=== PATIENT | female | born 1960 | race Two or more races ===

== ENCOUNTER 2019-08-20 11:55 | Emergency (ER) | payer MEDICAID ==
[~2019-08-20] VITALS: Ht 167.6 cm; Wt 81.6 kg
[~2019-08-20 11:55] MED LIST: CEPHALEXIN500 MG ORAL; IBUPROFEN800 MG ORAL; NKM; PHENAZOPYRIDIN200 MG ORAL
[2019-08-20 12:05] VITALS: BP 141/95
--- NOTE | 2019-08-20 12:05 | NUR ---
ED Nurse Note: pt ambulated in to ED, reports of having UTI and took antibiotic and wants to be eval. denies any pain
[2019-08-20 13:14] LABS: APPEARANCE,URINE CLEAR; BILIRUBIN, URINE NEGATIVE (NEGATIVE); GLUCOSE, URINE (UA) NEGATIVE (NEGATIVE); KETONES,URINE NEGATIVE (NEGATIVE); LEUKOCYTE ESTERASE ,URINE 1+ (NEGATIVE); NITRITE,URINE NEGATIVE (NEGATIVE); PH,URINE 6 (4.5-8.0); PROTEIN,URINE NEGATIVE (NEGATIVE); UROBILINOGEN,URINE NORMAL MG/DL (0.0-1.0)
[2019-08-20 13:33] LABS: COLOR,URINE YELLOW
--- NOTE | 2019-08-20 15:55 | Diagnostic Imaging Report ---
EXAM: US Pelvis Transabdominal, Complete CLINICAL HISTORY: PAIN TECHNIQUE: Real-time complete transabdominal pelvic ultrasound with image documentation. COMPARISON: No relevant prior studies available. FINDINGS: Uterus cervix: Normal in size, 5.9 x 5.6 x 3.5 cm. Endometrial complex measures less than 1 mm, a normal value for age. There is a 1.7 cm rounded hypoechoic mass in the cervix, which is not clearly a simple nabothian cyst. Cervical fibroid or other neoplasm would be considered. Right ovary: Normal in size, 2.5 x 1.5 x 2.6 cm. No mass. Normal blood flow. Left ovary: Normal in size, 2.9 x 1 x 1.9 cm. No mass. Normal blood flow. Free fluid: Trace free fluid in the cul-de-sac IMPRESSION: 1.7 cm hypoechoic cervical mass, not clearly a simple nabothian cysts. Consider cervical fibroid or other neoplasm. No abnormal endometrial thickening to explain postmenopausal vaginal bleeding. Unremarkable adnexal contents
--- NOTE | 2019-08-20 16:02 | Emergency Room Report ---
History of Present Illness General Chief Complaint: Female Urogenital Problems Source: Patient Present Illness HPI 58-year-old female with no significant past medical history here complaining of pain and cramping in the left lower quadrant after termination of antibiotics for urinary tract infection. Patient reports that she went to a different hospital 1 week ago was treated for urinary tract infection she finished her cephalexin and continues to have a 10 out of 10 cramping pain in the left lower quadrant. Denies fever and chills, nausea vomiting, flank pain. Denies any hematuria. Patient reports that she went through menopause years ago. Denies vaginal discharge, spotting or bleeding. Denies vaginal trauma. Denies being sexually active. Denies chest pain, shortness of breath, palpitation, abdominal pain, and other associated symptoms. Denies unwanted weight loss, night sweats, headache and dizziness as well as fatigue. Has not taken any medication for symptom relief. Allergies: Coded Allergies: No Known Allergies (Unverified , 02/17/15) Patient History Past Medical History: see triage record Past Surgical History: unable to obtain Pertinent Family History: none Now: No Immunizations: UTD Reviewed Nursing Documentation: PMH: Agreed; PSxH: Agreed Nursing Documentation-PMH Past Medical History: No Stated History Review of Systems All Other Systems: negative except mentioned in HPI Physical Exam Vital Signs Date Time Temp Pulse Resp B/P (MAP) Pulse Ox O2 Delivery O2 Flow Rate FiO2 08/20/19 11:58 97.5 74 19 141/95 (110) 95 Room Air Sp02 EP Interpretation: reviewed, normal General Appearance: no apparent distress, alert, GCS 15, non-toxic Head: normocephalic, atraumatic Eyes: bilateral eye normal inspection, bilateral eye PERRL ENT: hearing grossly normal, normal pharynx, no angioedema, normal voice Neck: full range of motion, supple, supple/symm/no masses Respiratory: chest non-tender, lungs clear, normal breath sounds, no rhonchi, no respiratory distress, no wheezing, speaking full sentences Cardiovascular #1: regular rate, rhythm, no edema, no murmur Gastrointestinal: normal bowel sounds, non tender, soft, no mass, no organomegaly, non-distended, no guarding, no hernia, no rebound Rectal: deferred Genitourinary: normal inspection, no CVA tenderness Musculoskeletal: back normal, gait/station normal, normal range of motion, non- tender, no calf tenderness Neurologic: alert, oriented x3, responsive, motor strength/tone normal, sensory intact, speech normal Psychiatric: judgement/insight normal, memory normal, mood/affect normal, no suicidal/homicidal ideation Skin: no rash Lymphatic: no adenopathy Medical Decision Making PA Attestation All diagnoses and treatment plans were reviewed and discussed with my supervising physician Dr. Isaacs Diagnostic Impression: Primary Impression: Cervical mass Additional Impression: Post-menopausal bleeding ER Course 58-year-old female with no significant past medical history here complaining of pain and cramping in the left lower quadrant after termination of antibiotics for urinary tract infection. Patient reports that she went to a different hospital 1 week ago was treated for urinary tract infection she finished her cephalexin and continues to have a 10 out of 10 cramping pain in the left lower quadrant. Denies fever and chills, nausea vomiting, flank pain. Denies any hematuria. Patient reports that she went through menopause years ago. Denies vaginal discharge, spotting or bleeding. Denies vaginal trauma. Denies being sexually active. Denies chest pain, shortness of breath, palpitation, abdominal pain, and other associated symptoms. Denies unwanted weight loss, night sweats, headache and dizziness as well as fatigue. Has not taken any medication for symptom relief. Ddx considered but are not limited to: UTI, pyelonephritis, urinary incontinence , prolapsed bladder, cervical mass, postmenopausal bleeding, hematuria Vital signs: are WNL, pt. is afebrile H&PE are most consistent with: Post menopausal bleeding, cervical mass ORDERS: UA, pelvic ultrasound, ibuprofen ED INTERVENTIONS: None required at this time. DISCHARGE: At this time pt. is stable for d/c to home. Will provide printed patient care instructions, and any necessary prescriptions. Care plan and follow up instructions have been discussed with the patient prior to discharge. I advised the patient to follow-up with a line service person for further assessment patient has not had a Pap smear in many years advised patient not to have that mass biopsy on the cervix as a bleeding in the urine that has been noted can be secondary to cervical mass since patient is postmenopausal. Patient agrees with the course of treatment. I also advised the patient to return to emergency room if worsening symptoms. Also advised the patient to follow-up with primary care provider if his symptoms of urinary frequency return at this time she has no urinary frequency and dysuria and no infection is noted in her urine. CT/MRI/US Diagnostic Results CT/MRI/US Diagnostic Results : Imaging Test Ordered: Pelvic ultrasound Impression FINDINGS: Uterus/cervix: Normal in size, 5.9 x 5.6 x 3.5 cm. Endometrial complex measures less than 1 mm, a normal value for age. There is a 1.7 cm rounded hypoechoic mass in the cervix, which is not clearly a simple nabothian cyst. Cervical fibroid or other neoplasm would be considered. Right ovary: Normal in size, 2.5 x 1.5 x 2.6 cm. No mass. Normal blood flow. Left ovary: Normal in size, 2.9 x 1 x 1.9 cm. No mass. Normal blood flow. Free fluid: Trace free fluid in the cul-de-sac IMPRESSION: 1.7 cm hypoechoic cervical mass, not clearly a simple nabothian cysts. Consider cervical fibroid or other neoplasm. No abnormal endometrial thickening to explain postmenopausal vaginal bleeding. Unremarkable adnexal contents Last Vital Signs Date Time Temp Pulse Resp B/P (MAP) Pulse Ox O2 Delivery O2 Flow Rate FiO2 08/20/19 12:05 97.5 74 19 141/95 95 Room Air Disposition: HOME, SELF-CARE Condition: Stable Scripts Ibuprofen (Ibu) 800 Mg Tablet 800 MG PO BID, #20 TAB Prov: Juventino Cortez 08/20/19 Referrals: NOT CHOSEN IPA/,REFERRING (PCP) Patient Instructions: Abnormal Uterine Bleeding Additional Instructions: Follow-up with your primary care physician for referral to line service person due to the mass found in your cervix further assessment needed possible biopsy and further imaging take medication as directed Juventino Cortez Aug 20, 2019 16:02
[2019-08-20] MEDS ORDERED: IBU800 MG PO (16:03)
[2019-08-20 16:09] VITALS: BP_SYST 138; BP_SYST 141; BP_DIAS 75; BP_DIAS 95
--- NOTE | 2019-08-20 16:10 | NUR ---
ER DISCHARGE NOTE: Patient is cleared to be discharged per ERMD, pt is aox4, on room air, with stable vital signs. pt was given dc and prescription instructions, pt was able to verbalize understanding, pt id band removed without complications. pt is able to ambulate with steady gait. pt took all belongings.
== END 2019-08-20 16:10 | disposition home or self-care (01) ==
LOC: EMR 12:40
DX: N88.9 Noninflammatory disorder of cervix uteri, unspecified (principal); N95.0 Postmenopausal bleeding
CPT/HCPCS: 76856; 81001; Z7502; 99284

== ENCOUNTER 2020-09-09 09:05 | Emergency (ER) | payer BC, MEDICAID ==
[~2020-09-09] VITALS: Ht 172.7 cm; Wt 81.6 kg
[~2020-09-09 09:05] MED LIST changes: +IBU800 MG PO
[2020-09-09 09:12] VITALS: BP 146/96
--- NOTE | 2020-09-09 09:21 | NUR ---
ED Nurse Note: Pt aaox4. walked in to ED c/o on and off fever x1 week. Pt also c/o headache. Pt took tylenol this morning. no respiratory distress noted at this time. patient denies any pain. no fever noted during the triage. mask provided on the patient
[2020-09-09] MEDS ORDERED: Ketorolac 30mg Inj IV ONE (09:30)
--- NOTE | 2020-09-09 09:30 | NUR ---
ED Nurse Note: IV line established. Blood and urine sent to lab.
--- NOTE | 2020-09-09 09:45 | Emergency Room Report ---
History of Present Illness General Chief Complaint: Fever Source: Patient Present Illness HPI Patient is a 60-year-old female denies any significant past medical history who presents to the ER complaining of fever for the past 8 days. Patient states that she does not know of a recorded temperature but feels like she has fevers intermittently. She also complains of generalized body aches She states that she has intermittent headache but denies any focal weakness or slurred speech. She denies any rash. She denies any recent travel or sick contacts. She denies any cough, chest pain or shortness of breath. She denies any dysuria or hematuria. Allergies: Coded Allergies: No Known Allergies (Unverified , 02/17/15) COVID-19 Screening Contact w/high risk pt: No Experienced COVID-19 symptoms?: Yes COVID-19 Testing performed GIN CLERK: Yes - 09/07/20 COVID-19 Screening: Negative COVID-19 COVID-19 Testing Source: [facility] Patient History Now: No Reviewed Nursing Documentation: PMH: Agreed; PSxH: Agreed Nursing Documentation-PMH Past Medical History: No Stated History Review of Systems All Other Systems: negative except mentioned in HPI Physical Exam Vital Signs Date Time Temp Pulse Resp B/P (MAP) Pulse Ox O2 Delivery O2 Flow Rate FiO2 09/09/20 09:12 100 19 Room Air 09/09/20 09:12 98.6 146/96 (113) 98 Sp02 EP Interpretation: reviewed, normal General Appearance: no apparent distress, alert, GCS 15, non-toxic Head: normocephalic, atraumatic Eyes: bilateral eye normal inspection, bilateral eye PERRL ENT: hearing grossly normal, normal pharynx, no angioedema, normal voice, dry mucus membranes Neck: full range of motion, no meningismus, supple/symm/no masses Respiratory: chest non-tender, lungs clear, normal breath sounds, speaking full sentences Cardiovascular #1: regular rate, rhythm Gastrointestinal: non tender, soft, no guarding, no rebound Rectal: deferred Genitourinary: no CVA tenderness Musculoskeletal: normal range of motion, no calf tenderness Neurologic: registered nurse obstetrics III-XII nml as tested, oriented x3 Psychiatric: no suicidal/homicidal ideation Skin: no rash Lymphatic: no adenopathy Medical Decision Making Diagnostic Impression: Primary Impression: UTI (urinary tract infection) Additional Impression: Transaminitis ER Course Patient afebrile in the emergency room. Her vital signs have been stable. Patient has been pancultured. Patient is COVID-19 PCR is negative. Chest x-ray demonstrates no acute cardiopulmonary pathology. Patient's urine demonstrates evidence for UTI. Patient has been started on Rocephin and is being discharged home on Macrobid. Patient has no signs of meningitis. She denies having any headache currently she denies any neck stiffness and has no meningismus on exam. Patient has mildly elevated LFTs. Ultrasound demonstrates no acute pathology. I have advised the patient to follow-up with her physician for further treatment and evaluation of her transaminitis. After discussing risks and benefits of further diagnostics, treatment plans, as well as indications for and risks of admission, the patient is agreeable to being discharged home. I have explained that their evaluation and treatment in the emergency department today is an important step towards them achieving better health but that their evaluation today is not intended to replace further evaluation and treatment by a physician in their local clinic. I have explained that while the current findings suggest no immediate life threatening emergency they will require further evaluation and treatment by a physician of their choice in their area. They understand that it will be necessary for them to review the final reports of their ED visit with their clinic physician. We have reviewed indications for return to the Emergency Department. I have explained that additional time may need to pass and/or additional testing as an outpatient may be necessary before a definitive diagnosis can be made. They tell me they are willing to follow up as instructed within the timeframe I recommend. They appear to understand what we discussed. Additionally they understand that if they are unable to be seen by an outpatient physician they are welcome, and in fact should, return to the Emergency Department for a repeat evaluation. The patient is stable at time of discharge. Laboratory Tests Test 09/09/20 09:30 White Blood Count 5.1 K/UL (4.8-10.8) Red Blood Count 5.23 M/UL (4.20-5.40) Hemoglobin 16.6 G/DL (12.0-16.0) H Hematocrit 47.7 % (37.0-47.0) H Mean Corpuscular Volume 91 FL (80-99) Mean Corpuscular Hemoglobin 31.7 PG (27.0-31.0) H Mean Corpuscular Hemoglobin Concent 34.7 G/DL (32.0-36.0) Red Cell Distribution Width 11.4 % (11.6-14.8) L Platelet Count 241 K/UL (150-450) Mean Platelet Volume 5.8 FL (6.5-10.1) L Neutrophils (%) (Auto) 45.4 % (45.0-75.0) Lymphocytes (%) (Auto) 44.0 % (20.0-45.0) Monocytes (%) (Auto) 9.4 % (1.0-10.0) Eosinophils (%) (Auto) 0.0 % (0.0-3.0) Basophils (%) (Auto) 1.2 % (0.0-2.0) Prothrombin Time 11.2 SEC (9.30-11.50) Prothrombin Time INR 1.0 (0.9-1.1) Activated Partial Thromboplast Time 22 SEC (23-33) L Urine Color Yellow Urine Appearance Clear Urine pH 5 (4.5-8.0) Urine Specific [place] 1.025 (1.005-1.035) Urine Protein 2+ (NEGATIVE) H Urine Glucose (UA) Negative (NEGATIVE) Urine Ketones 1+ (NEGATIVE) H Urine Blood 5+ (NEGATIVE) H Urine Nitrite Negative (NEGATIVE) Urine Bilirubin 1+ (NEGATIVE) H Urine Ictotest Negative (NEGATIVE) Urine Urobilinogen 1 MG/DL (0.0-1.0) H Urine Leukocyte Esterase 2+ (NEGATIVE) H Urine RBC 5-10 /HPF (0 - 2) H Urine WBC 2-4 /HPF (0 - 2) Urine Squamous Epithelial Cells Few /LPF (NONE/OCC) Urine Bacteria Few /HPF (NONE) Urine Mucus Few /LPF (NONE/OCC) H Sodium Level 135 MMOL/L (136-145) L Potassium Level 3.9 MMOL/L (3.5-5.1) Chloride Level 102 MMOL/L (98-107) Carbon Dioxide Level 26 MMOL/L (21-32) Anion Gap 7 mmol/L (5-15) Blood Urea Nitrogen 6 mg/dL (7-18) L Creatinine 1.0 MG/DL (0.55-1.30) Estimated Glomerular Filtration Rate 56.8 mL/min (>60) Glucose Level 134 MG/DL (74-106) H Lactic Acid Level 1.90 mmol/L (0.4-2.0) Calcium Level 9.1 MG/DL (8.5-10.1) Magnesium Level 2.0 MG/DL (1.8-2.4) Total Bilirubin 0.4 MG/DL (0.2-1.0) Aspartate Amino Transferase (AST) 125 U/L (15-37) H Alanine Aminotransferase (ALT) 146 U/L (12-78) H Alkaline Phosphatase 132 U/L (46-116) H Total Protein 7.8 G/DL (6.4-8.2) Albumin 3.3 G/DL (3.4-5.0) L Globulin 4.5 g/dL Albumin/Globulin Ratio 0.7 (1.0-2.7) L Microbiology Date/Time Source Procedure Growth Status 09/09/20 09:30 Nasal Nares - Final Complete 09/09/20 09:30 Nasal Nares - Final Complete 09/09/20 09:30 Nasopharynx SARS-CoV-2 RdRp Gene Assay - Final Complete EKG Diagnostic Results Troponin ordered: No - Ordered for fever not for chest pain EKG Time: 09:22 EP Interpretation: Caprice Ramos MD Rate: normal - 95 bpm Rhythm: NSR ST Segments: no acute changes ASA given to the pt in ED: No Last Vital Signs Date Time Temp Pulse Resp B/P (MAP) Pulse Ox O2 Delivery O2 Flow Rate FiO2 09/09/20 09:12 98.6 100 19 146/96 98 Room Air Disposition: HOME, SELF-CARE Condition: Stable Scripts Ibuprofen* (MOTRIN*) 600 Mg Tablet 600 MG ORAL FOUR TIMES A DAY, #30 TAB 0 Refills Prov: Caprice Ramos M.D. 09/09/20 Nitrofurantoin Monohyd/M-Cryst* (MACROBID 100 MG*) 100 Mg Capsule 100 MG ORAL EVERY 12 HOURS for 7 Days, CAP Prov: Caprice Ramos M.D. 09/09/20 Additional Instructions: The patient was provided with discharge instructions, notified to follow-up with a primary care doctor and or specialist in the next 24-48 hours, and to return to the ED if they have worsening of their symptoms. Please note that this report is being documented using [employer] technology. This can lead to erroneous entry secondary to incorrect interpretation by the dictating instrument. Caprice Ramos M.D. Sep 09, 2020 09:45
--- NOTE | 2020-09-09 09:45 | NUR ---
ED Nurse Note: Xray at bedside.
[2020-09-09 10:05] LABS: APPEARANCE,URINE CLEAR; BILIRUBIN, URINE 1+ (NEGATIVE); GLUCOSE, URINE (UA) NEGATIVE (NEGATIVE); KETONES,URINE 1+ (NEGATIVE); LEUKOCYTE ESTERASE ,URINE 2+ (NEGATIVE); NITRITE,URINE NEGATIVE (NEGATIVE); PH,URINE 5 (4.5-8.0); PROTEIN,URINE 2+ (NEGATIVE); UROBILINOGEN,URINE 1 MG/DL (0.0-1.0)
[2020-09-09 10:08] LABS: BASOPHILS % (AUTO) 1.2 % (0.0-2.0); HEMATOCRIT 47.7 % (37.0-47.0); HEMOGLOBIN 16.6 G/DL (12.0-16.0); MEAN CORPUSCULAR VOLUME 91 FL (80-99); MONOCYTES % (AUTO) 9.4 % (1.0-10.0); NEUTROPHILS % (AUTO) 45.4 % (45.0-75.0); PLATELET COUNT 241 K/UL (150-450); RED BLOOD COUNT 5.23 M/UL (4.20-5.40); RED CELL DISTRIBUTION WIDTH 11.4 % (11.6-14.8); WHITE BLOOD COUNT 5.1 K/UL (4.8-10.8)
[2020-09-09 10:09] LABS: COLOR,URINE YELLOW
[2020-09-09] MEDS ORDERED: cefTRIAXone 1 GM in NS 55 ML IVPB ONE (10:15)
[2020-09-09 10:21] LABS: ALBUMIN 3.3 G/DL (3.4-5.0); ALBUMIN/GLOBULIN RATIO 0.7 (1.0-2.7); BILIRUBIN,TOTAL 0.4 MG/DL (0.2-1.0); CALCIUM 9.1 MG/DL (8.5-10.1); POTASSIUM 3.9 MMOL/L (3.5-5.1)
--- NOTE | 2020-09-09 10:56 | NUR ---
ED Nurse Note: US at bedside.
[2020-09-09 11:20] VITALS: BP 146/96
--- NOTE | 2020-09-09 11:20 | NUR ---
ER DISCHARGE NOTE: Patient is cleared to be discharged per ERMD, pt is aox4, on room air, with stable vital signs. pt was given dc and prescription instructions, pt was able to verbalize understanding, pt id band and iv site removed without complications. pt is able to ambulate with steady gait. pt took all belongings.
[2020-09-09] MEDS ORDERED: IBUPROFEN600 M1 ORAL (11:27)
[2020-09-09] MEDS ORDERED: NITROFURANTOIN100 M2 ORAL (11:27)
--- NOTE | 2020-09-10 06:19 | Diagnostic Imaging Report ---
EXAM: XR Chest, 1 View CLINICAL HISTORY: PAIN TECHNIQUE: Frontal view of the chest. COMPARISON: No relevant prior studies available. FINDINGS: Lungs: Low lung volumes secondary to poor inspiration, accentuates bronchovascular markings. No consolidation. Pleural space: Unremarkable. No pneumothorax. Heart: Unremarkable. No cardiomegaly. Mediastinum: Unremarkable. Bones/joints: Unremarkable. IMPRESSION: No focal infiltrate.
--- NOTE | 2020-09-10 06:19 | Diagnostic Imaging Report ---
EXAM: US Abdomen Limited, Right Upper Quadrant CLINICAL HISTORY: Patient is a 60-year-old female denies any significant past medical history who presents to the ER complaining of fever for the past 8 days. Patient states that she does not know of a recorded temperature but feels like she has fevers intermittently. She also complains of generalized body aches She states that she has intermittent headache but denies any focal weakness or slurred speech. TECHNIQUE: Real-time ultrasound of the right upper quadrant with image documentation. COMPARISON: None FINDINGS: Liver: Increased echogenicity of the liver suggestive of hepatic steatosis. Liver measures 15.3 cm. No intrahepatic bile duct dilation. Gallbladder: No gallstones or sludge. Nonspecific borderline prominence of the gallbladder wall. No pericholecystic fluid. Common bile duct: Normal common bile duct measuring 3.5 mm. No stones. No dilation. Pancreas: Pancreas is not well-visualized due to overlying bowel gas, but visualized portions are grossly unremarkable. Right kidney: Increased echogenicity of the right renal parenchyma is suggestive of medical renal disease. Right kidney is slightly atrophic, measuring 9.8 cm in length. No hydronephrosis or stone. Spleen: Spleen measures 9.0 cm. No focal lesion. Aorta: Visualized portions of the aorta are grossly unremarkable. Inferior vena cava: Visualized portions of the IVC are grossly unremarkable. Other vasculature: Patent main portal vein with normal directional flow. Other findings: Left kidney measures 10.1 cm in length. No hydronephrosis or stone. IMPRESSION: 1. Increased echogenicity of the liver suggestive of hepatic steatosis. 2. Increased echogenicity of the right renal parenchyma is suggestive of medical renal disease.
== END 2020-09-09 11:20 | disposition home or self-care (01) ==
LOC: EMR 09:44
DX: N39.0 Urinary tract infection, site not specified (principal); R74.01 Elevation of levels of liver transaminase levels; R51.9 Headache, unspecified
CPT/HCPCS: 36415; 71045; 76700; 80053; 81003; 83605; 83735; 85025; 85610; 85730; 86710; 87040; 87181; 93005; 96361; 96365; 96375; 99284; J0696; J1885; J7030; U0002

== ENCOUNTER 2020-09-10 23:16 | Emergency (ER) | payer BC ==
[~2020-09-10] VITALS: Ht 175.3 cm; Wt 81.6 kg
[~2020-09-10 23:16] MED LIST changes: +IBUPROFEN600 M1 ORAL; +NITROFURANTOIN100 M2 ORAL
[2020-09-10] MEDS ORDERED: HYDROcodone/Acetamin 5/325 tab ORAL ONE (23:45)
--- NOTE | 2020-09-10 23:45 | NUR ---
ED Nurse Note: Patient walked into the ED with c/o headache and nausea onset 09/09. Patient stated she feels weak and was taking macrobid for UTI. PAtient was called to return to ED to be checked for reevaluation. PAtient denies fever and chills, CP/SOB/. Patient is AAOX4 and ambulatory. Placed on monitor bed
--- NOTE | 2020-09-10 23:46 | NUR ---
ED Nurse Note: ERMD at bedside
--- NOTE | 2020-09-10 23:53 | Emergency Room Report ---
History of Present Illness General Chief Complaint: Nausea Source: Patient Present Illness HPI This is a 60-year-old female with no past medical history. She presents with complaint of headache and body pain. Onset for 8 days now. Subjective fever. No cough or congestion. Generalized myalgia. She was here yesterday and laboratory data showed a transaminitis. She also was COVID negative. Urinalysis showed possible urinary tract infection. She was given Rocephin and prescribed Macrobid. She said is not getting better. [place] nauseous but no vomiting. Pain is to the right side of her head. Denies any trauma. No focal deficit. Pain is 8 out of 10. Nothing made it better. Nothing made it worse. Has not take anything for this. Allergies: Coded Allergies: No Known Allergies (Unverified , 02/17/15) COVID-19 Screening Contact w/high risk pt: No Experienced COVID-19 symptoms?: No COVID-19 Testing performed STORES ASSISTANT: No Patient History Past Medical History: see triage record, old chart reviewed Past Surgical History: none Pertinent Family History: none Social History: Denies: smoking Last Menstrual Period: na Now: No Immunizations: other Reviewed Nursing Documentation: PMH: Agreed; PSxH: Agreed Nursing Documentation-PMH Past Medical History: No Stated History Review of Systems Constitutional: Reports: fever Eye: Denies: eye pain, blurred vision ENT: Denies: ear pain, nose congestion, throat swelling Respiratory: Denies: cough, shortness of breath Cardiovascular: Denies: chest pain, palpitations Gastrointestinal: Denies: abdominal pain, diarrhea, nausea, vomiting Musculoskeletal: Denies: back pain, joint pain Skin: Denies: rash Neurological: Reports: headache; Denies: numbness Endocrine: Denies: increased thirst, increased urine Hematologic/Lymphatic: Denies: easy bruising All Other Systems: negative except mentioned in HPI Physical Exam Vital Signs Date Time Temp Pulse Resp B/P (MAP) Pulse Ox O2 Delivery O2 Flow Rate FiO2 09/10/20 23:19 98.4 107 16 133/83 (100) 93 Room Air Vitals with borderline oxygenation. Sp02 EP Interpretation: reviewed, normal General Appearance: well appearing, no apparent distress, alert Head: normocephalic, atraumatic Eyes: bilateral eye PERRL, bilateral eye EOMI ENT: hearing grossly normal, normal pharynx Neck: full range of motion, supple, no meningismus Respiratory: chest non-tender, lungs clear, normal breath sounds Cardiovascular #1: regular rate, rhythm, no murmur Gastrointestinal: normal bowel sounds, non tender, no mass, no organomegaly, no bruit, non-distended Musculoskeletal: back normal, normal range of motion, gait/station normal Psychiatric: mood/affect normal Medical Decision Making Diagnostic Impression: Primary Impression: Headache Qualified Codes: R51.9 - Headache, unspecified ER Course [place] with right-sided headache. May be migrainous in nature. No evidence of meningitis, sepsis, bleed or neoplastic process. Patient insists on changing the Macrobid because she said her symptoms worsen when she took it. CT/MRI/US Diagnostic Results CT/MRI/US Diagnostic Results : Imaging Test Ordered: CT head Impression Negative per radiologist Last Vital Signs Date Time Temp Pulse Resp B/P (MAP) Pulse Ox O2 Delivery O2 Flow Rate FiO2 09/10/20 23:19 98.4 107 16 133/83 (100) 93 Room Air Status: improved Disposition: HOME, SELF-CARE Condition: Stable Scripts Cephalexin* (KEFLEX*) 500 Mg Capsule 500 MG ORAL TID, #21 CAP Prov: Rene Garcia MD 09/11/20 Ondansetron (Zofran) 4 Mg Tablet 4 MG ORAL Q6H PRN for Nausea & Vomiting, #15 TAB 0 Refills Prov: Rene Garcia MD 09/11/20 Acetamin/Butalbital/Caffeine* (FIORICET*) 1 Ea Tab 1 TAB ORAL Q6H, #15 TAB 0 Refills Prov: Rene Garcia MD 09/11/20 Referrals: NON PHYSICIAN (PCP) Additional Instructions: Stop your oral antibiotics. Follow-up with your doctor in 7 days. Return if symptoms worsen. Rene Garcia MD Sep 10, 2020 23:53
--- NOTE | 2020-09-11 | NUR ---
ED Nurse Note: CT scan done
[2020-09-11 00:06] VITALS: BP 133/83
--- NOTE | 2020-09-11 00:23 | Diagnostic Imaging Report ---
EXAM: CT Head Without Intravenous Contrast CLINICAL HISTORY: PAIN TECHNIQUE: Axial computed tomography images of the head/brain without intravenous contrast. CTDI is 53.40 mGy and DLP is 1072.20 mGy-cm. One or more of the following dose reduction techniques were used: automated exposure control, adjustment of the mA and/or kV according to patient size, use of iterative reconstruction technique. COMPARISON: No relevant prior studies available. FINDINGS: Brain: Unremarkable. No hemorrhage. No significant white matter disease. No edema. Ventricles: Unremarkable. No ventriculomegaly. Bones/joints: Unremarkable. No acute fracture. Soft tissues: Unremarkable. Sinuses: Unremarkable as visualized. No acute sinusitis. Mastoid air cells: Unremarkable as visualized. No mastoid effusion. IMPRESSION: Unremarkable head/brain CT.
[2020-09-11] MEDS ORDERED: CEPHALEXIN500 MG ORAL (01:01)
[2020-09-11] MEDS ORDERED: ZOFRAN4 MG ORAL (01:01)
[2020-09-11] MEDS ORDERED: FIORICET1 EA ORAL (01:01)
[2020-09-11 01:09] VITALS: BP 133/83
--- NOTE | 2020-09-11 01:09 | NUR ---
ER DISCHARGE NOTE: Patient is cleared to be discharged per ERMD, pt is aox4, on room air, with stable vital signs. pt was given dc and prescription instructions, pt was able to verbalize understanding, pt id band removed. pt is able to ambulate with steady gait. pt took all belongings.
== END 2020-09-11 01:10 | disposition home or self-care (01) ==
LOC: EMR 23:43
DX: R51.9 Headache, unspecified (principal); M79.10 Myalgia, unspecified site; R11.0 Nausea
CPT/HCPCS: 70450; 99283

== ENCOUNTER 2020-09-13 16:05 | Inpatient (IN) | payer BC ==
[~2020-09-13] VITALS: Ht 172.7 cm; Wt 86.3 kg
[~2020-09-13 16:05] MED LIST changes: +FIORICET1 EA ORAL; +ZOFRAN4 MG ORAL
--- NOTE | 2020-09-13 16:12 | Emergency Room Report ---
History of Present Illness General Chief Complaint: To Be Triaged Source: Patient Present Illness HPI 60F here with myalgias, chills, and complaint of fever. Patient was seen in the emergency department on 09/09/2020 and blood cultures from that day grew Staphylococcus epidermidis She was seen 2 days ago and sent home because she was feeling asymptomatic, however is continuing to have symptoms of pain has returned to the ER. Endorses diaphoresis. Denies chest pain, nausea, vomiting, diarrhea, shortness of breath, abdominal pain, dysuria, focal weakness or other complaints The patient's symptoms were gradual onset, severity was moderate, duration since 20 DAYS. Quality: Myalgias, fever, chills, anorexia Past medical history: Denies Past surgical history: Denies Smoking: Denies Alcohol use: occasional Drug use: Denies Review of systems: CONST: No fevers ++ chills, ++ night sweats PULMONARY: No productive cough, No shortness of breath CARDIAC: No chest pain, No palpitations GI: No vomiting, No diarrhea , No melena_or_BRBPR : No dysuria, No hematuria, No discharge NEURO: No new_focal_weakness_or_numbness, No confusion, No vision changes 14 point Review of Systems is otherwise negative except per HPI Physical Exam: GENERAL: Awake_alert_ nontoxic, no acute distress Spo2 93% on RA -normal. Diaphoretic. Afebrile EYES: Extraocular muscles are intact. Conjunctivae clear. Lids without swelling ENT: External nose and ear normal_in_appearance. Oropharynx clear. Head_atraumatic, Moist_oral_mucosa NECK: No JVD. No meningismus. No thyromegaly. Supple. Trachea midline RESP: Normal respiratory effort. Symmetric rise. No stridor. Clear_to_auscultation_No_rales_No_wheezes CARDIAC: Regular rate and regular rhytm. No_significant pedal edema. ABDOMEN: Soft. Nondistended. Nontender_No_rebound_or_guarding. MSK: Normal muscle tone, without rigidity. Extremities without asymmetric deformity or swelling. No splinter hemorrhages SKIN: Warm and dry. No visible cyanosis or pallor NEUROLOGIC: Alert, oriented x3. Motor_and_sensation_grossly_intact. No truncal ataxia. Gait_normal Psych: Normal mood and affect, normal judgment and insight - COORDINATION OF CARE Case was discussed with: Patient ; Patient's Physician Any labs and imaging that were ordered were interpreted as part of the medical decision making: Medical Decision Making/Plan: Differential diagnosis: Viral syndrome versus bacteremia versus endocarditis v ersus pneumonia Patient is afebrile but diaphoretic on examination. She is complaining of diffuse body pain, myalgia and fatigue. Also endorses headache without signs of focal neuro deficit or nuchal rigidity. Doubt meningitis. Blood culture from several days ago was positive for gram-positive cocci in clustersStaph epidermidis. Unable to rule out contaminant as patient is cu rrently symptomatic. We will repeat blood work and blood culture and admit patient to the hospital. Urinalysis is positive for pyelonephritis. Ciprofloxacin given. Vancomycin given. I spoke with Dr. Chandra and reviewed the patients presentation, workup, results, and treatment. They will admit the patient for further care and evaluation, and assume care of the patient at this time. Allergies: Coded Allergies: No Known Allergies (Unverified , 02/17/15) COVID-19 Screening Contact w/high risk pt: No Experienced COVID-19 symptoms?: No Physical Exam Sp02 EP Interpretation: reviewed, normal Medical Decision Making Diagnostic Impression: Primary Impression: Bacteremia Additional Impressions: Fatigue Myalgia UTI (urinary tract infection) Pyelonephritis Hyponatremia EKG Diagnostic Results Troponin ordered: Yes When was troponin ordered?: Sep 13, 2020 EKG Time: 16:34 EP Interpretation: Normal Rate: normal Rhythm: NSR ST Segments: no acute changes PA Scribe Text 12-lead EKG (interpreted by me) Time: 1655 Indication: Rhythm analysis Tracing visualized and Interpreted by me. Rhythm: Normal sinus rhythm Rate: 82 bpm QTc: 425 Morphology: No_significant_ST_elevations_or_depressions, No STEMI Impression: Normal_sinus_rhythm_without_significant_abnormality Rhythm Strip Diag. Results Rhythm Strip Time: 16:34 EP Interpretation: yes Rate: 97 Rhythm: NSR, no PVC's, no ectopy Chest X-Ray Diagnostic Results Chest X-Ray Diagnostic Results : PA Scribe Text Chest X-Ray: Views: 1 view(s) Indication: Generalized weakness Findings: Normal heart size. Mediastinum normal. No infiltrate. Impression: No acute disease The X-ray(s) were independently viewed and interpreted contemporaneously Electronically signed by , Kathy Licona DO Reevaluation Time: 17:00 Status: improved Disposition: ADMITTED INPATIENT - [facility] Admit Decision Time: 16:34 Condition: Stable Kathy Licona D.O. Sep 13, 2020 16:12
[2020-09-13 16:30] VITALS: BP 113/80
[2020-09-13] MEDS ORDERED: Vancomycin 1 GM in NS 275 ML IV ONE (16:30)
[2020-09-13 16:58] LABS: EOSINOPHILS % (AUTO) 0.1 % (0.0-3.0); HEMATOCRIT 46.1 % (37.0-47.0); HEMOGLOBIN 15.7 G/DL (12.0-16.0); LYMPHOCYTES % (AUTO) 27.7 % (20.0-45.0); MEAN CORPUSCULAR VOLUME 94 FL (80-99); MONOCYTES % (AUTO) 6.9 % (1.0-10.0); NEUTROPHILS % (AUTO) 64.4 % (45.0-75.0); PLATELET COUNT 249 K/UL (150-450); RED BLOOD COUNT 4.91 M/UL (4.20-5.40); RED CELL DISTRIBUTION WIDTH 11.6 % (11.6-14.8); WHITE BLOOD COUNT 5.7 K/UL (4.8-10.8)
[2020-09-13 17:00] LABS: APPEARANCE,URINE SLIGHTLY CLOUDY; BILIRUBIN, URINE 1+ (NEGATIVE); GLUCOSE, URINE (UA) NEGATIVE (NEGATIVE); KETONES,URINE 2+ (NEGATIVE); LEUKOCYTE ESTERASE ,URINE 2+ (NEGATIVE); NITRITE,URINE POSITIVE (NEGATIVE); PH,URINE 5 (4.5-8.0); PROTEIN,URINE 3+ (NEGATIVE); UROBILINOGEN,URINE 4 MG/DL (0.0-1.0)
[2020-09-13 17:03] LABS: COLOR,URINE YELLOW
--- NOTE | 2020-09-13 17:04 | Diagnostic Imaging Report ---
Indication: Cough Technique: One view of the chest Comparison: 09/09/2020 Findings: Lungs and pleural spaces are clear. Heart size is normal. Impression: No acute process
[2020-09-13 17:08] LABS: ANION GAP 13 mmol/L (5-15); BLOOD UREA NITROGEN 9 mg/dL (7-18); CALCIUM 9.2 MG/DL (8.5-10.1); CARBON DIOXIDE 23 MMOL/L (21-32); CHLORIDE 98 MMOL/L (98-107); CREATININE 1.1 MG/DL (0.55-1.30); POTASSIUM 3.9 MMOL/L (3.5-5.1); SODIUM 133 MMOL/L (136-145)
[2020-09-13 17:21] LABS: ALANINE AMINOTRANSFERASE 136 U/L (12-78); ALBUMIN 3.4 G/DL (3.4-5.0); ALBUMIN/GLOBULIN RATIO 0.7 (1.0-2.7); ALKALINE PHOSPHATASE 146 U/L (46-116); ASPARTATE AMINO TRANSFERASE 140 U/L (15-37); BILIRUBIN,TOTAL 0.5 MG/DL (0.2-1.0); CKMB < 0.5 NG/ML (0.0-3.6); PHOSPHORUS 3.3 MG/DL (2.5-4.9)
[2020-09-13] MEDS ORDERED: Albuterol/Ipratropium 3ml neb HHN PRN (18:00)
[2020-09-13] MEDS ORDERED: Milk of Magnesia 30ml Ud ORAL PRN (18:00)
[2020-09-13] MEDS ORDERED: Hydromorphone 0.5mg/0.5ml inj IVP PRN (18:00)
[2020-09-13] MEDS ORDERED: Mylanta II UD 30ml ORAL PRN (18:00)
[2020-09-13] MEDS ORDERED: Nitroglycerin Subl 0.4mg tab SL PRN (18:00)
--- NOTE | 2020-09-13 19:13 | History & Physical ---
History and Physical History & Physicial Chat reviewed. Admission orders placed.Case d/w ED physician. Full H&P to follow Logan Chandra M.D. Sep 13, 2020 19:13
[2020-09-13 20:15] VITALS: BP 140/83
[2020-09-13] MEDS: Enoxaparin 40mg Inj SUBQ SCH (20:20)
[2020-09-13] MEDS ORDERED: cefTRIAXone 1 GM in NS 55 ML IVPB ONE (21:00)
[2020-09-14] VITALS: BP 124/72
[2020-09-14 04:00] VITALS: BP 119/68
[2020-09-14] MEDS: Vancomycin 1gm/D5W 275ml IVPB SCH ×4 (05:02→19:31)
--- NOTE | 2020-09-14 07:41 | History and Physical ---
History of Present Illness General Date patient seen: Sep 14, 2020 Reason for Hospitalization: Fever Present Illness HPI 60 year old female with no known medical problems presented to the ER with myalgias, on and off fevers and chills. Patient was recently seen in [facility] ER on 09/09/2020 with similar complaints and blood cultures drwan and / bottles grew Staph epi. Patient also complains of diaphoresis, night sweats, anorexia. says her fever is on and off. Denies any recent travel or sick contacts. Denies any abdominal pain, nausea, vomiting or diarrhea. she has no urinary complaints. No burning, no frequency or bad odor. Past medical history: None Past surgical history: None Social history: Denies alcohol use, denies smoking tobacco, denies illicit drug use. Family history: No family history of accelerated CAD In the ER patient's vital signs were stable and she was afebrile. Labs urine and repeat blood cultures drawn patient was given ciprofloxacin and vancomycin and admitted. Allergies: Coded Allergies: No Known Allergies (Unverified , 02/17/15) COVID-19 Screening Contact w/high risk pt: No Experienced COVID-19 symptoms?: No Medication History Scheduled Cephalexin* (Keflex*), 500 MG ORAL TID Discontinued Medications Acetamin/Butalbital/Caffeine* (Fioricet*), 1 TAB ORAL Q6H Discontinued Reason: Pt stopped taking med Cephalexin* (Keflex*), 500 MG ORAL EVERY 6 HOURS Discontinued Reason: Pt stopped taking med Ibuprofen (Ibu), 800 MG PO BID Discontinued Reason: Pt stopped taking med Ibuprofen* (Motrin*), 800 MG ORAL THREE TIMES A DAY Discontinued Reason: Pt stopped taking med Ibuprofen* (Motrin*), 600 MG ORAL FOUR TIMES A DAY Discontinued Reason: Pt stopped taking med Nitrofurantoin Monohyd/M-Cryst* (Macrobid 100 Mg*), 100 MG ORAL EVERY 12 HOURS Discontinued Reason: Pt stopped taking med No Known Medications* (NKM - No Known Medications*), 0 ., (Reported) Discontinued Reason: Pt stopped taking med Ondansetron (Zofran), 4 MG ORAL Q6H PRN for Nausea & Vomiting Discontinued Reason: Pt stopped taking med Phenazopyridine Hcl* (Pyridium*), 200 MG ORAL THREE TIMES A DAY Discontinued Reason: Pt stopped taking med Patient History Healthcare decision maker Resuscitation status Advanced Directive on File Review of Systems Constitutional: Reports: see HPI, chills, sweats, fever, malaise, weakness Eye: Denies: no symptoms, see HPI, eye pain, blurred vision, tearing, double vision, nose pain, nose congestion, acuity changes, discharge, other ENT: Denies: no symptoms, see HPI, ear pain, ear discharge, nose pain, nose congestion, throat pain, throat swelling, mouth pain, hearing loss, nasal discharge, other Respiratory: Denies: no symptoms, see HPI, cough, orthopnea, shortness of breath, stridor, wheezing, PATTERSON, sputum, other Cardiovascular: Denies: no symptoms, see HPI, chest pain, edema, palpitations, syncope, PND, other Gastrointestinal: Denies: no symptoms, see HPI, abdominal pain, constipation, diarrhea, nausea, vomiting, melena, hematemesis, other Genitourinary: Denies: no symptoms, see HPI, discharge, dysuria, frequency, hematuria, pain, retention, incontinence, urgency, vag bleed/dc, other Musculoskeletal: Denies: no symptoms, see HPI, back pain, gout, joint pain, joint swelling, muscle pain, muscle stiffness, other Skin: Denies: no symptoms, see HPI, rash, change in color, change in hair/nails, dryness, lesions, other Neurological: Denies: no symptoms, see HPI, headache, numbness, paresthesia, seizure, tingling, tremors, focal weakness, syncope, dizziness, other Endocrine: Denies: no symptoms, see HPI, excessive sweating, flushing, intolerance to temperature, increased thirst, increased urine, unexplained weight loss, other Hematologic/Lymphatic: Denies: no symptoms, see HPI, anemia, blood clots, easy bleeding, easy bruising, swollen glands, diathesis, other Physical Exam General Appearance: alert oriented x3, other - diaphoretic Lines, tubes and drains: peripheral HEENT: normocephalic, atraumatic, anicteric Neck: non-tender, normal alignment, supple, normal inspection Respiratory/Chest: chest wall non-tender, lungs clear, normal breath sounds, no respiratory distress, no accessory muscle use Cardiovascular/Chest: normal peripheral pulses, normal rate, regular rhythm, no gallop/murmur, no JVD Abdomen: normal bowel sounds, non tender, soft, no organomegaly, abnormal bowel sounds, other - obese Extremities: normal range of motion, non-tender, normal inspection, no edema Skin Exam: normal pigmentation, warm/dry, other - diaphoretic Neurologic: pediatric audiologist II-XII grossly normal, no motor/sensory deficits, alert, oriented x 3, responsive Musculoskeletal: normal muscle bulk Last 24 Hour Vital Signs Date Time Temp Pulse Resp B/P (MAP) Pulse Ox O2 Delivery O2 Flow Rate FiO2 09/14/20 06:58 98.2 09/14/20 04:00 98.4 91 20 119/68 (85) 96 09/14/20 00:02 101.1 09/14/20 00:01 101.1 09/14/20 00:00 102.0 114 24 124/72 (89) 96 09/13/20 20:15 97.7 118 24 140/83 (102) 97 09/13/20 20:03 Room Air 09/13/20 19:45 97.3 18 113/80 93 Room Air 09/13/20 16:30 97 18 Room Air 09/13/20 16:30 97.3 76 18 113/80 93 Room Air 09/13/20 16:13 97.3 97 18 113/80 (91) 93 Room Air Intake and Output 0 09/13/20 09/14/20 19:00 07:00 Intake Total 1000 ml 480 ml Balance 1000 ml 480 ml Intake Oral 480 ml IV Total 1000 ml # Voids 1 2 Laboratory Tests Test 09/13/20 16:40 White Blood Count 5.7 K/UL (4.8-10.8) Red Blood Count 4.91 M/UL (4.20-5.40) Hemoglobin 15.7 G/DL (12.0-16.0) Hematocrit 46.1 % (37.0-47.0) Mean Corpuscular Volume 94 FL (80-99) Mean Corpuscular Hemoglobin 32.0 PG (27.0-31.0) H Mean Corpuscular Hemoglobin Concent 34.1 G/DL (32.0-36.0) Red Cell Distribution Width 11.6 % (11.6-14.8) Platelet Count 249 K/UL (150-450) Mean Platelet Volume 6.6 FL (6.5-10.1) Neutrophils (%) (Auto) 64.4 % (45.0-75.0) Lymphocytes (%) (Auto) 27.7 % (20.0-45.0) Monocytes (%) (Auto) 6.9 % (1.0-10.0) Eosinophils (%) (Auto) 0.1 % (0.0-3.0) Basophils (%) (Auto) 1.0 % (0.0-2.0) Prothrombin Time 10.9 SEC (9.30-11.50) Prothromb Time International Ratio 1.0 (0.9-1.1) Activated Partial Thromboplast Time 28 SEC (23-33) Urine Color Yellow Urine Appearance Slightly cloudy Urine pH 5 (4.5-8.0) Urine Specific [place] 1.020 (1.005-1.035) Urine Protein 3+ (NEGATIVE) H Urine Glucose (UA) Negative (NEGATIVE) Urine Ketones 2+ (NEGATIVE) H Urine Blood 5+ (NEGATIVE) H Urine Nitrite Positive (NEGATIVE) H Urine Bilirubin 1+ (NEGATIVE) H Urine Ictotest Negative (NEGATIVE) Urine Urobilinogen 4 MG/DL (0.0-1.0) H Urine Leukocyte Esterase 2+ (NEGATIVE) H Urine RBC 5-10 /HPF (0 - 2) H Urine WBC 20-30 /HPF (0 - 2) H Urine Squamous Epithelial Cells Moderate /LPF (NONE/OCC) H Urine Amorphous Sediment Moderate /LPF (NONE) H Urine Bacteria Many /HPF (NONE) H Sodium Level 133 MMOL/L (136-145) L Potassium Level 3.9 MMOL/L (3.5-5.1) Chloride Level 98 MMOL/L (98-107) Carbon Dioxide Level 23 MMOL/L (21-32) Anion Gap 13 mmol/L (5-15) Blood Urea Nitrogen 9 mg/dL (7-18) Creatinine 1.1 MG/DL (0.55-1.30) Estimat Glomerular Filtration Rate 50.8 mL/min (>60) Glucose Level 154 MG/DL (74-106) H Lactic Acid Level 1.90 mmol/L (0.4-2.0) Calcium Level 9.2 MG/DL (8.5-10.1) Phosphorus Level 3.3 MG/DL (2.5-4.9) Magnesium Level 2.2 MG/DL (1.8-2.4) Total Bilirubin 0.5 MG/DL (0.2-1.0) Aspartate Amino Transf (AST/SGOT) 140 U/L (15-37) H Alanine Aminotransferase (ALT/SGPT) 136 U/L (12-78) H Alkaline Phosphatase 146 U/L (46-116) H Creatine Kinase MB < 0.5 NG/ML (0.0-3.6) Troponin I 0.000 ng/mL (0.000-0.056) Total Protein 8.3 G/DL (6.4-8.2) H Albumin 3.4 G/DL (3.4-5.0) Globulin 4.9 g/dL Albumin/Globulin Ratio 0.7 (1.0-2.7) L Microbiology Date/Time Source Procedure Growth Status 09/13/20 16:40 Urine,Clean Catch Urine Culture - Preliminary NO GROWTH Resulted 09/13/20 16:40 Nasopharynx SARS-CoV-2 RdRp Gene Assay - Final Complete Height (Feet): 5 Height (Inches): 8.00 Weight (Pounds): 180 Medications Current Medications Medications (Trade) Dose Ordered Sig/Ghassan Route PRN Reason Start Time Stop Time Status Last Admin Dose Admin Acetaminophen (Tylenol) 650 mg Q4H PRN ORAL Mild Pain (Pain Scale 1-3) 09/13/20 18:00 10/13/20 17:59 09/14/20 06:28 Al Hydroxide/Mg Hydroxide (Mylanta II) 30 ml Q6H PRN ORAL dyspepsia 09/13/20 18:00 10/13/20 17:59 Albuterol/ Ipratropium (Albuterol/ Ipratropium) 3 ml TIDPRN PRN HHN Shortness of Breath 09/13/20 18:00 09/18/20 17:59 Dextrose (Dextrose 50%) 25 ml Q30M PRN IV Hypoglycemia 09/13/20 18:00 12/12/20 17:59 Dextrose (Dextrose 50%) 50 ml Q30M PRN IV Hypoglycemia 09/13/20 18:00 12/12/20 17:59 Diphenhydramine HCl (Benadryl) 25 mg Q6H PRN ORAL Itching/Pruritis 09/13/20 18:00 10/13/20 17:59 Enoxaparin Sodium (Lovenox) 40 mg Q24H SUBQ 09/13/20 21:00 12/12/20 20:59 09/13/20 20:20 Hydromorphone HCl (Dilaudid) 0.5 mg Q6H PRN IVP Moderate Pain (Pain Scale 4-6) 09/13/20 18:00 09/20/20 17:59 Hydromorphone HCl (Dilaudid) 2 mg Q6H PRN IVP Severe Pain (Pain Scale 7-10) 09/13/20 18:00 09/20/20 17:59 Magnesium Hydroxide (Mom) 30 ml HSPRN PRN ORAL Constipation 09/13/20 18:00 10/13/20 17:59 Nitroglycerin (Ntg) 0.4 mg Q5M X 3 DOSES PRN SL Prn Chest Pain 09/13/20 18:00 10/13/20 17:59 Ondansetron HCl (Zofran) 4 mg Q6H PRN IVP Nausea & Vomiting 09/13/20 18:00 10/13/20 17:59 Sodium Chloride 1,000 ml @ 125 mls/hr Q8H IVLG 09/13/20 19:00 10/13/20 18:59 09/14/20 03:07 Vancomycin HCl (Vanco pharmacy to dose) 1 ea DAILY PRN MISC Per rx protocol 09/13/20 18:15 10/13/20 18:14 Vancomycin HCl 1 gm/Dextrose 275 ml @ 183.708 mls/hr Q12H IVPB 09/14/20 05:00 09/19/20 04:59 09/14/20 05:02 Assessment/Plan Problem List: (1) Bacteremia ICD Codes: R78.81 - Bacteremia SNOMED: 5934965 (2) Transaminitis ICD Codes: R74.01 - Elevation of levels of liver transaminase levels SNOMED: 150937602, 926003705 (3) UTI (urinary tract infection) ICD Codes: N39.0 - Urinary tract infection, site not specified SNOMED: 10969975, 889745909 (4) Pyelonephritis ICD Codes: N12 - Tubulo-interstitial nephritis, not specified as acute or chronic SNOMED: 25101795 (5) Hyponatremia ICD Codes: E87.1 - Hypo-osmolality and hyponatremia SNOMED: 37033901 (6) Myalgia ICD Codes: M79.10 - Myalgia, unspecified site SNOMED: 09710700 (7) Fatigue ICD Codes: R53.83 - Other fatigue SNOMED: 25193662 (8) Headache ICD Codes: R51.9 - Headache, unspecified SNOMED: 07427620 Status: stable Assessment/Plan: Previously healthy 60-year-old female presents to the hospital with fever, chills, diaphoresis and myalgias. She has blood cultures 2 out of 2 bottles that are growing staph epidermidis and likely contaminant patient has no history of central lines. Her UA looks infected, urine culture sent. She has no leuko cytosis, T-max 102, lactate 1.9. Covid testing negative. #SIRS-likely viral syndrome. #Blood cultures, 2/2 bottles staph Epi likely contaminant #Asymptomatic bacteriuria Admit to [facility] Repeat blood cultures Antibiotics with ceftriaxone and vancomycin Follow-up urine culture Tylenol as needed for fevers IV fluids ID consult: #Transaminitis likely due to SIRS Continue to monitor LFTs GI consult: Hepatitis panel Abdominal ultrasound #Hyponatremia-likely hypovolemic, continue monitor. IVF VTE prophylaxis: Heparin Diet: Regular CODE STATUS: Full code I spent 72 minutes on this encounter. 35 minutes spent on counseling and care coordination. Plan of care discussed with patient ID physician and GI physician. Logan Chandra M.D. Sep 14, 2020 07:41
[2020-09-14 08:00] VITALS: BP 134/73
--- NOTE | 2020-09-14 10:24 | General Progress Note ---
Subjective ROS Limited/Unobtainable: Yes Allergies: Coded Allergies: No Known Allergies (Unverified , 02/17/15) Objective Last 24 Hour Vital Signs Date Time Temp Pulse Resp B/P (MAP) Pulse Ox O2 Delivery O2 Flow Rate FiO2 09/14/20 10:00 97.7 09/14/20 09:00 Room Air 09/14/20 08:00 102.2 101 18 134/73 (93) 94 09/14/20 06:58 98.2 09/14/20 04:00 98.4 91 20 119/68 (85) 96 09/14/20 00:02 101.1 09/14/20 00:01 101.1 09/14/20 00:00 102.0 114 24 124/72 (89) 96 09/13/20 20:15 97.7 118 24 140/83 (102) 97 09/13/20 20:03 Room Air 09/13/20 19:45 97.3 18 113/80 93 Room Air 09/13/20 16:30 97 18 Room Air 09/13/20 16:30 97.3 76 18 113/80 93 Room Air 09/13/20 16:13 97.3 97 18 113/80 (91) 93 Room Air Intake and Output 09/13/20 09/14/20 19:00 07:00 Intake Total 1000 ml 605 ml Balance 1000 ml 605 ml Intake Oral 480 ml IV Total 1000 ml 125 ml # Voids 1 2 Laboratory Tests 09/13/20 16:40: White Blood Count 5.7, Red Blood Count 4.91, Hemoglobin 15.7, Hematocrit 46.1, Mean Corpuscular Volume 94, Mean Corpuscular Hemoglobin 32.0H, Mean Corpuscular Hemoglobin Concent 34.1, Red Cell Distribution Width 11.6, Platelet Count 249, Mean Platelet Volume 6.6, Neutrophils (%) (Auto) 64.4, Lymphocytes (%) (Auto) 27.7, Monocytes (%) (Auto) 6.9, Eosinophils (%) (Auto) 0.1, Basophils (%) (Auto) 1.0, Prothrombin Time 10.9, Prothromb Time International Ratio 1.0, Activated Partial Thromboplast Time 28, Urine Color Yellow, Urine Appearance Slightly cloudy, Urine pH 5, Urine Specific [place] 1.020, Urine Protein 3+H, Urine Glucose (UA) Negative, Urine Ketones 2+H, Urine Blood 5+H, Urine Nitrite PositiveH, Urine Bilirubin 1+H, Urine Ictotest Negative, Urine Urobilinogen 4H, Urine Leukocyte Esterase 2+H, Urine RBC 5-10H, Urine WBC 20-30H, Urine Squamous Epithelial Cells ModerateH, Urine Amorphous Sediment ModerateH, Urine Bacteria ManyH, Sodium Level 133L, Potassium Level 3.9, Chloride Level 98, Carbon Dioxide Level 23, Anion Gap 13, Blood Urea Nitrogen 9, Creatinine 1.1, Estimat Glomerular Filtration Rate 50.8, Glucose Level 154H, Lactic Acid Level 1.90, Calcium Level 9.2, Phosphorus Level 3.3, Magnesium Level 2.2, Total Bilirubin 0.5, Aspartate Amino Transf (AST/SGOT) 140H, Alanine Aminotransferase (ALT/SGPT) 136H, Alkaline Phosphatase 146H, Creatine Kinase MB < 0.5, Troponin I 0.000, Total Protein 8.3H, Albumin 3.4, Globulin 4.9, Albumin/Globulin Ratio 0.7L Height (Feet): 5 Height (Inches): 8.00 Weight (Pounds): 180 General Appearance: alert EENT: normal ENT inspection Neck: normal alignment Cardiovascular: normal rate Respiratory/Chest: lungs clear Abdomen: non tender, soft, hypoactive bowel sounds Extremities: non-tender Assessment/Plan Problem List: (1) Transaminitis ICD Codes: R74.01 - Elevation of levels of liver transaminase levels SNOMED: 782821831, 886720917 (2) Bacteremia ICD Codes: R78.81 - Bacteremia SNOMED: 4418870 (3) Myalgia ICD Codes: M79.10 - Myalgia, unspecified site SNOMED: 21560732 (4) Fatigue ICD Codes: R53.83 - Other fatigue SNOMED: 85353999 Assessment/Plan: elevated LFTS possibly due to sepsis abd us repeat labs hepatitis panel will Louis Florez MD Sep 14, 2020 10:24
[2020-09-14 11:58] LABS: BASOPHILS % (AUTO) 2.4 % (0.0-2.0); HEMATOCRIT 37.5 % (37.0-47.0); HEMOGLOBIN 13.3 G/DL (12.0-16.0); LYMPHOCYTES % (AUTO) 30.6 % (20.0-45.0); MEAN CORPUSCULAR VOLUME 89 FL (80-99); MONOCYTES % (AUTO) 8.8 % (1.0-10.0); NEUTROPHILS % (AUTO) 58.2 % (45.0-75.0); PLATELET COUNT 206 K/UL (150-450); RED BLOOD COUNT 4.22 M/UL (4.20-5.40); RED CELL DISTRIBUTION WIDTH 11.1 % (11.6-14.8); WHITE BLOOD COUNT 4.8 K/UL (4.8-10.8)
[2020-09-14 12:00] VITALS: BP 124/69
[2020-09-14] MEDS ORDERED: cefTRIAXone 1 GM in D5W 50 ML IVPB SCH (12:30)
--- NOTE | 2020-09-14 12:45 | Infectious Diseases Prog Note ---
Assessment/Plan Assessment/Plan Full consul to follow: A) 1) ? sepsis, fevers, ? source, ? uti, ? 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 GI. abdominal pain, diarrhea, elevated LFT's 2) pmh noted 3) allergies - nkda P) 1) vancomycin, zosyn 2) cultures, labs, abdominal US, CT abdomen and pelvis, TTE 3) hepatitis pane, GI 4) d/w Dr. Chandra 5) thank you Subjective Allergies: Coded Allergies: No Known Allergies (Unverified , 02/17/15) Objective Last 24 Hour Vital Signs Date Time Temp Pulse Resp B/P (MAP) Pulse Ox O2 Delivery O2 Flow Rate FiO2 09/14/20 10:00 97.7 09/14/20 09:00 Room Air 09/14/20 08:00 102.2 101 18 134/73 (93) 94 09/14/20 06:58 98.2 09/14/20 04:00 98.4 91 20 119/68 (85) 96 09/14/20 00:02 101.1 09/14/20 00:01 101.1 09/14/20 00:00 102.0 114 24 124/72 (89) 96 09/13/20 20:15 97.7 118 24 140/83 (102) 97 09/13/20 20:03 Room Air 09/13/20 19:45 97.3 18 113/80 93 Room Air 09/13/20 16:30 97 18 Room Air 09/13/20 16:30 97.3 76 18 113/80 93 Room Air 09/13/20 16:13 97.3 97 18 113/80 (91) 93 Room Air Height (Feet): 5 Height (Inches): 8.00 Weight (Pounds): 180 Microbiology Date/Time Source Procedure Growth Status 09/13/20 16:40 Urine,Clean Catch Urine Culture - Preliminary NO GROWTH Resulted 09/13/20 16:40 Nasopharynx SARS-CoV-2 RdRp Gene Assay - Final Complete Laboratory Tests Test 09/13/20 16:40 09/14/20 11:39 White Blood Count 5.7 K/UL (4.8-10.8) 4.8 K/UL (4.8-10.8) Red Blood Count 4.91 M/UL (4.20-5.40) 4.22 M/UL (4.20-5.40) Hemoglobin 15.7 G/DL (12.0-16.0) 13.3 G/DL (12.0-16.0) Hematocrit 46.1 % (37.0-47.0) 37.5 % (37.0-47.0) Mean Corpuscular Volume 94 FL (80-99) 89 FL (80-99) Mean Corpuscular Hemoglobin 32.0 PG (27.0-31.0) H 31.5 PG (27.0-31.0) H Mean Corpuscular Hemoglobin Concent 34.1 G/DL (32.0-36.0) 35.5 G/DL (32.0-36.0) Red Cell Distribution Width 11.6 % (11.6-14.8) 11.1 % (11.6-14.8) L Platelet Count 249 K/UL (150-450) 206 K/UL (150-450) Mean Platelet Volume 6.6 FL (6.5-10.1) 5.5 FL (6.5-10.1) L Neutrophils (%) (Auto) 64.4 % (45.0-75.0) 58.2 % (45.0-75.0) Lymphocytes (%) (Auto) 27.7 % (20.0-45.0) 30.6 % (20.0-45.0) Monocytes (%) (Auto) 6.9 % (1.0-10.0) 8.8 % (1.0-10.0) Eosinophils (%) (Auto) 0.1 % (0.0-3.0) 0.0 % (0.0-3.0) Basophils (%) (Auto) 1.0 % (0.0-2.0) 2.4 % (0.0-2.0) H Prothrombin Time 10.9 SEC (9.30-11.50) Prothromb Time International Ratio 1.0 (0.9-1.1) Activated Partial Thromboplast Time 28 SEC (23-33) Urine Color Yellow Urine Appearance Slightly cloudy Urine pH 5 (4.5-8.0) Urine Specific [place] 1.020 (1.005-1.035) Urine Protein 3+ (NEGATIVE) H Urine Glucose (UA) Negative (NEGATIVE) Urine Ketones 2+ (NEGATIVE) H Urine Blood 5+ (NEGATIVE) H Urine Nitrite Positive (NEGATIVE) H Urine Bilirubin 1+ (NEGATIVE) H Urine Ictotest Negative (NEGATIVE) Urine Urobilinogen 4 MG/DL (0.0-1.0) H Urine Leukocyte Esterase 2+ (NEGATIVE) H Urine RBC 5-10 /HPF (0 - 2) H Urine WBC 20-30 /HPF (0 - 2) H Urine Squamous Epithelial Cells Moderate /LPF (NONE/OCC) H Urine Amorphous Sediment Moderate /LPF (NONE) H Urine Bacteria Many /HPF (NONE) H Sodium Level 133 MMOL/L (136-145) L Pending Potassium Level 3.9 MMOL/L (3.5-5.1) Pending Chloride Level 98 MMOL/L (98-107) Pending Carbon Dioxide Level 23 MMOL/L (21-32) Pending Anion Gap 13 mmol/L (5-15) Blood Urea Nitrogen 9 mg/dL (7-18) Pending Creatinine 1.1 MG/DL (0.55-1.30) Pending Estimat Glomerular Filtration Rate 50.8 mL/min (>60) Pending Glucose Level 154 MG/DL (74-106) H Pending Lactic Acid Level 1.90 mmol/L (0.4-2.0) Calcium Level 9.2 MG/DL (8.5-10.1) Pending Phosphorus Level 3.3 MG/DL (2.5-4.9) Magnesium Level 2.2 MG/DL (1.8-2.4) Total Bilirubin 0.5 MG/DL (0.2-1.0) Pending Aspartate Amino Transf (AST/SGOT) 140 U/L (15-37) H Pending Alanine Aminotransferase (ALT/SGPT) 136 U/L (12-78) H Pending Alkaline Phosphatase 146 U/L (46-116) H Pending Creatine Kinase MB < 0.5 NG/ML (0.0-3.6) Troponin I 0.000 ng/mL (0.000-0.056) Total Protein 8.3 G/DL (6.4-8.2) H Pending Albumin 3.4 G/DL (3.4-5.0) Pending Globulin 4.9 g/dL Pending Albumin/Globulin Ratio 0.7 (1.0-2.7) L Thyroid Stimulating Hormone (TSH) Pending Hepatitis A IgM Antibody Pending Hepatitis B Surface Antigen Pending Hepatitis B Core IgM Antibody Pending Hepatitis C Antibody Pending Current Medications Medications (Trade) Dose Ordered Sig/Ghassan Route PRN Reason Start Time Stop Time Status Last Admin Dose Admin Acetaminophen (Tylenol) 650 mg Q4H PRN ORAL Mild Pain (Pain Scale 1-3) 09/13/20 18:00 10/13/20 17:59 09/14/20 06:28 Acetaminophen (Tylenol) 650 mg Q4H PRN ORAL FEVER 09/14/20 10:15 10/14/20 10:14 Al Hydroxide/Mg Hydroxide (Mylanta II) 30 ml Q6H PRN ORAL dyspepsia 09/13/20 18:00 10/13/20 17:59 Albuterol/ Ipratropium (Albuterol/ Ipratropium) 3 ml TIDPRN PRN HHN Shortness of Breath 09/13/20 18:00 09/18/20 17:59 Ceftriaxone Sodium 1 gm/ Dextrose 50 ml @ 100 mls/hr Q24H IVPB 09/14/20 12:30 09/21/20 12:29 UNV Dextrose (Dextrose 50%) 25 ml Q30M PRN IV Hypoglycemia 09/13/20 18:00 12/12/20 17:59 Dextrose (Dextrose 50%) 50 ml Q30M PRN IV Hypoglycemia 09/13/20 18:00 12/12/20 17:59 Diphenhydramine HCl (Benadryl) 25 mg Q6H PRN ORAL Itching/Pruritis 09/13/20 18:00 10/13/20 17:59 Enoxaparin Sodium (Lovenox) 40 mg Q24H SUBQ 09/13/20 21:00 12/12/20 20:59 09/13/20 20:20 Hydromorphone HCl (Dilaudid) 0.5 mg Q6H PRN IVP Moderate Pain (Pain Scale 4-6) 09/13/20 18:00 09/20/20 17:59 Hydromorphone HCl (Dilaudid) 2 mg Q6H PRN IVP Severe Pain (Pain Scale 7-10) 09/13/20 18:00 09/20/20 17:59 Magnesium Hydroxide (Mom) 30 ml HSPRN PRN ORAL Constipation 09/13/20 18:00 10/13/20 17:59 Nitroglycerin (Ntg) 0.4 mg Q5M X 3 DOSES PRN SL Prn Chest Pain 09/13/20 18:00 10/13/20 17:59 Ondansetron HCl (Zofran) 4 mg Q6H PRN IVP Nausea & Vomiting 09/13/20 18:00 10/13/20 17:59 Sodium Chloride 1,000 ml @ 125 mls/hr Q8H IVLG 09/13/20 19:00 10/13/20 18:59 09/14/20 11:56 Vancomycin HCl (Vanco pharmacy to dose) 1 ea DAILY PRN MISC Per rx protocol 09/13/20 18:15 10/13/20 18:14 Vancomycin HCl 1 gm/Dextrose 275 ml @ 183.708 mls/hr Q12H IVPB 09/14/20 05:00 09/19/20 04:59 09/14/20 05:02 Kaur Mazariegos MD Sep 14, 2020 12:45
[2020-09-14 13:01] LABS: ALANINE AMINOTRANSFERASE 110 U/L (12-78); ALBUMIN 2.6 G/DL (3.4-5.0); ALBUMIN/GLOBULIN RATIO 0.6 (1.0-2.7); ALKALINE PHOSPHATASE 130 U/L (46-116); ANION GAP 12 mmol/L (5-15); ASPARTATE AMINO TRANSFERASE 127 U/L (15-37); BILIRUBIN,TOTAL 0.4 MG/DL (0.2-1.0); BLOOD UREA NITROGEN 5 mg/dL (7-18); CALCIUM 8.2 MG/DL (8.5-10.1); CARBON DIOXIDE 21 MMOL/L (21-32); CHLORIDE 104 MMOL/L (98-107); CREATININE 0.8 MG/DL (0.55-1.30); POTASSIUM 3.5 MMOL/L (3.5-5.1); SODIUM 137 MMOL/L (136-145)
[2020-09-14 15:22] LABS: APPEARANCE,URINE CLEAR; BILIRUBIN, URINE NEGATIVE (NEGATIVE); GLUCOSE, URINE (UA) NEGATIVE (NEGATIVE); KETONES,URINE NEGATIVE (NEGATIVE); LEUKOCYTE ESTERASE ,URINE NEGATIVE (NEGATIVE); NITRITE,URINE NEGATIVE (NEGATIVE); PH,URINE 7 (4.5-8.0); PROTEIN,URINE NEGATIVE (NEGATIVE); UROBILINOGEN,URINE NORMAL MG/DL (0.0-1.0)
[2020-09-14 15:24] LABS: COLOR,URINE YELLOW
--- NOTE | 2020-09-14 15:51 | Diagnostic Imaging Report ---
Indication: Abdominal pain Technique: Mccauley-scale and duplex images of the upper abdomen were obtained Comparison: 09/09/2020 Findings: Gallbladder is unremarkable, without stones, wall thickening, nor pericholecystic fluid. Sonographic Black's sign is negative. Common bile duct measures 4 mm in diameter. No intrahepatic biliary ductal dilatation. Liver demonstrates diffusely increased echogenicity, consistent with diffuse hepatocellular disease, most likely fatty change. Portal vein and hepatic veins are patent. Pancreas is unremarkable. Spleen is unremarkable. Left kidney measures 10.1 cm in length. Right kidney measures 11.3 cm length. Both kidneys demonstrate normal echogenicity. There is no hydronephrosis. No focal abnormality . Non-aneurysmal abdominal aorta . No significant change Impression: Liver demonstrates diffusely increased echogenicity, consistent with diffuse hepatocellular disease, most likely fatty change. Otherwise negative
[2020-09-14 16:00] VITALS: BP 137/67
--- NOTE | 2020-09-14 17:57 | Diagnostic Imaging Report ---
EXAM: CT Abdomen and Pelvis With Intravenous Contrast CLINICAL HISTORY: INFECT TECHNIQUE: Axial computed tomography images of the abdomen and pelvis with intravenous contrast. CTDI is 8.9 mGy and DLP is 525 mGy-cm. One or more of the following dose reduction techniques were used: automated exposure control, adjustment of the mA and/or kV according to patient size, use of iterative reconstruction technique. Coronal and sagittal reformatted images were created and reviewed. COMPARISON: 09/14/2020 FINDINGS: Lung bases: Unremarkable. No mass. No consolidation. ABDOMEN: Liver: Unremarkable. No mass. Gallbladder and bile ducts: Unremarkable. No calcified stones. No ductal dilation. Pancreas: Unremarkable. No mass. No ductal dilation. Spleen: Inferior splenic 2 cm and mid anterior splenic 1.6 x 0.2 cm hypodensities could represent splenic infarcts. Adrenals: Unremarkable. No mass. Kidneys and ureters: Unremarkable. No solid mass. No hydronephrosis. Stomach and bowel: Minimal sigmoid colon wall thickening with possible minimal adjacent fat stranding is probably incidental, but could in the proper clinical context, represent minimal, subtle, acute, uncomplicated diverticulitis. No obstruction. PELVIS: Appendix: No findings to suggest acute appendicitis. Bladder: Unremarkable. No mass. Reproductive: Unremarkable as visualized. ABDOMEN and PELVIS: Intraperitoneal space: Unremarkable. No free air. No significant fluid collection. Bones/joints: L3-L4 degenerative spine findings. No acute fracture. No dislocation. Soft tissues: Unremarkable. Vasculature: Unremarkable. No abdominal aortic aneurysm. Lymph nodes: Unremarkable. No enlarged lymph nodes. IMPRESSION: 1. Inferior splenic 2 cm and mid anterior splenic 1.6 x 0.2 cm hypodensities could represent splenic infarcts. 2. Minimal sigmoid colon wall thickening with possible minimal adjacent fat stranding is probably incidental, but could in the proper context represent minimal acute uncomplicated diverticulitis. 3. Otherwise no acute abnormality identified to account for patient presentation. <MYCVCSECTION> Communications: 09/14/20 18:13 Call Doctor Regarding Other, called Dr. Chandra on 09/14 18:13 (-07:00)
[2020-09-14 20:00] VITALS: BP 118/72
[2020-09-14] MEDS: Enoxaparin 40mg Inj SUBQ SCH (21:56)
[2020-09-15] VITALS: BP 137/67
[2020-09-15 04:00] VITALS: BP 134/80
[2020-09-15] MEDS: Vancomycin 1gm/D5W 275ml IVPB SCH ×2 (06:00)
--- NOTE | 2020-09-15 07:37 | General Progress Note ---
Subjective ROS Limited/Unobtainable: Yes Allergies: Coded Allergies: No Known Allergies (Unverified , 02/17/15) Objective Last 24 Hour Vital Signs Date Time Temp Pulse Resp B/P (MAP) Pulse Ox O2 Delivery O2 Flow Rate FiO2 09/15/20 04:00 99.0 85 20 134/80 (98) 95 09/15/20 00:00 102.3 105 22 137/67 (90) 95 09/14/20 22:32 99.8 09/14/20 20:54 Room Air 09/14/20 20:00 98.4 83 16 118/72 (87) 96 09/14/20 16:30 99.1 09/14/20 16:01 99.2 09/14/20 16:00 103.0 102 18 137/67 (90) 96 09/14/20 12:00 99.1 85 18 124/69 (87) 94 09/14/20 10:00 97.7 09/14/20 09:00 Room Air 09/14/20 08:00 102.2 101 18 134/73 (93) 94 Intake and Output 09/14/20 09/15/20 19:00 07:00 Intake Total 1100 ml 400 ml Output Total 2 ml Balance 1100 ml 398 ml IV Total 1100 ml Other 400 ml Output Urine Total 2 ml # Voids 2 Laboratory Tests 09/14/20 11:39: White Blood Count 4.8, Red Blood Count 4.22, Hemoglobin 13.3, Hematocrit 37.5, Mean Corpuscular Volume 89, Mean Corpuscular Hemoglobin 31.5H, Mean Corpuscular Hemoglobin Concent 35.5, Red Cell Distribution Width 11.1L, Platelet Count 206, Mean Platelet Volume 5.5L, Neutrophils (%) (Auto) 58.2, Lymphocytes (%) (Auto) 30.6, Monocytes (%) (Auto) 8.8, Eosinophils (%) (Auto) 0.0, Basophils (%) (Auto) 2.4H, Sodium Level 137, Potassium Level 3.5, Chloride Level 104, Carbon Dioxide Level 21, Anion Gap 12, Blood Urea Nitrogen 5L, Creatinine 0.8, Estimat Glomerular Filtration Rate > 60, Glucose Level 132H, Calcium Level 8.2L, Total Bilirubin 0.4, Aspartate Amino Transf (AST/SGOT) 127H, Alanine Aminotransferase (ALT/SGPT) 110H, Alkaline Phosphatase 130H, Total Protein 6.7, Albumin 2.6L, Globulin 4.1, Albumin/Globulin Ratio 0.6L, Thyroid Stimulating Hormone (TSH) 1.692, Hepatitis A IgM Antibody [Pending], Hepatitis B Surface Antigen [Pending], Hepatitis B Core IgM Antibody [Pending], Hepatitis C Antibody [Pending] 09/14/20 14:57: Urine Color Yellow, Urine Appearance Clear, Urine pH 7, Urine Specific [place] 1.010, Urine Protein Negative, Urine Glucose (UA) Negative, Urine Ketones Negative, Urine Blood 4+H, Urine Nitrite Negative, Urine Bilirubin Negative, Urine Urobilinogen Normal, Urine Leukocyte Esterase Negative, Urine RBC 5-10H, Urine WBC 0-2, Urine Squamous Epithelial Cells Occasional, Urine Bacteria Few Height (Feet): 5 Height (Inches): 8.00 Weight (Pounds): 180 General Appearance: alert EENT: normal ENT inspection Neck: supple Cardiovascular: normal rate Respiratory/Chest: lungs clear Abdomen: soft, hypoactive bowel sounds Extremities: non-tender Assessment/Plan Problem List: (1) Transaminitis ICD Codes: R74.01 - Elevation of levels of liver transaminase levels SNOMED: 168009348, 883191950 (2) Bacteremia ICD Codes: R78.81 - Bacteremia SNOMED: 6896121 (3) Myalgia ICD Codes: M79.10 - Myalgia, unspecified site SNOMED: 73317289 (4) Fatigue ICD Codes: R53.83 - Other fatigue SNOMED: 57281235 Status: stable Assessment/Plan: elevated LFTS possibly due to sepsis and fatty liver abd us>>> reviewed repeat labs hepatitis panel CT reviewed ? diverticulitis on abx per ID needs out patient fu for colonoscopy in 8 weeks will fu Louis Gerard MD Sep 15, 2020 07:37
[2020-09-15 07:54] LABS: BASOPHILS % (AUTO) 1.5 % (0.0-2.0); HEMATOCRIT 34.2 % (37.0-47.0); HEMOGLOBIN 12.4 G/DL (12.0-16.0); LYMPHOCYTES % (AUTO) 25.3 % (20.0-45.0); MEAN CORPUSCULAR VOLUME 88 FL (80-99); MONOCYTES % (AUTO) 5.8 % (1.0-10.0); NEUTROPHILS % (AUTO) 67.3 % (45.0-75.0); PLATELET COUNT 219 K/UL (150-450); RED BLOOD COUNT 3.88 M/UL (4.20-5.40); RED CELL DISTRIBUTION WIDTH 10.9 % (11.6-14.8); WHITE BLOOD COUNT 6.5 K/UL (4.8-10.8)
[2020-09-15 08:00] VITALS: BP 119/69
[2020-09-15 08:42] LABS: ALANINE AMINOTRANSFERASE 93 U/L (12-78); ALBUMIN 2.5 G/DL (3.4-5.0); ALBUMIN/GLOBULIN RATIO 0.6 (1.0-2.7); ALKALINE PHOSPHATASE 102 U/L (46-116); ANION GAP 11 mmol/L (5-15); ASPARTATE AMINO TRANSFERASE 95 U/L (15-37); BILIRUBIN,TOTAL 0.6 MG/DL (0.2-1.0); BLOOD UREA NITROGEN 5 mg/dL (7-18); CALCIUM 7.8 MG/DL (8.5-10.1); CARBON DIOXIDE 21 MMOL/L (21-32); CHLORIDE 98 MMOL/L (98-107); CREATININE 0.8 MG/DL (0.55-1.30); POTASSIUM 2.9 MMOL/L (3.5-5.1); SODIUM 130 MMOL/L (136-145)
--- NOTE | 2020-09-15 09:24 | General Progress Note ---
Subjective Date patient seen: Sep 15, 2020 ROS Limited/Unobtainable: No Constitutional: Reports: chills, diaphoresis, fever, malaise, weakness HEENT: Denies: no symptoms, eye pain, blurred vision, tearing, double vision, ear pain, ear discharge, nose pain, nose congestion, throat pain, throat swelling, mouth pain, mouth swelling, other Cardiovascular: Denies: no symptoms, chest pain, edema, irregular heart rate, lightheadedness, palpitations, syncope, other Respiratory: Denies: no symptoms, cough, orthopnea, shortness of breath, SOB w ith excertion, SOB at rest, sputum, stridor, wheezing, other Gastrointestinal/Abdominal: Reports: vomiting Genitourinary: Denies: no symptoms, burning, discharge, frequency, flank pain, hematuria, incontinence, pain, urgency, other Neurologic/Psychiatric: Denies: no symptoms, anxiety, depressed, emotional problems, headache, numbness, paresthesia, pre-existing deficit, seizure, tingling, tremors, weakness, other Endocrine: Denies: no symptoms, excessive sweating, flushing, intolerance to cold, intolerance to heat, increased hunger, increased thirst, increased urine, unexplained weight gain, unexplained weight loss, other Hematologic/Lymphatic: Denies: no symptoms, anemia, easy bleeding, easy bruising, other Allergies: Coded Allergies: No Known Allergies (Unverified , 02/17/15) Subjective fever and chills. vomitted this morning. Denies pain. TTE normal, EKG normal. LFTs tending down. US abdomen fatty liver, CT abdomen pelvis, diverticulitis and small splenic infarcts. Blood and urine cultures no growth thus far Objective Last 24 Hour Vital Signs Date Time Temp Pulse Resp B/P (MAP) Pulse Ox O2 Delivery O2 Flow Rate FiO2 09/15/20 08:00 101.5 97 19 119/69 (86) 96 09/15/20 04:00 99.0 85 20 134/80 (98) 95 09/15/20 00:00 102.3 105 22 137/67 (90) 95 09/14/20 22:32 99.8 09/14/20 20:54 Room Air 09/14/20 20:00 98.4 83 16 118/72 (87) 96 09/14/20 16:30 99.1 09/14/20 16:01 99.2 09/14/20 16:00 103.0 102 18 137/67 (90) 96 09/14/20 12:00 99.1 85 18 124/69 (87) 94 09/14/20 10:00 97.7 Intake and Output 09/14/20 09/15/20 19:00 07:00 Intake Total 1100 ml 708.708 ml Output Total 2 ml Balance 1100 ml 706.708 ml IV Total 1100 ml 308.708 ml Other 400 ml Output Urine Total 2 ml # Voids 2 Laboratory Tests 09/14/20 11:39: White Blood Count 4.8, Red Blood Count 4.22, Hemoglobin 13.3, Hematocrit 37.5, M amy Corpuscular Volume 89, Mean Corpuscular Hemoglobin 31.5H, Mean Corpuscular Hemoglobin Concent 35.5, Red Cell Distribution Width 11.1L, Platelet Count 206, Mean Platelet Volume 5.5L, Neutrophils (%) (Auto) 58.2, Lymphocytes (%) (Auto) 30.6, Monocytes (%) (Auto) 8.8, Eosinophils (%) (Auto) 0.0, Basophils (%) (Auto) 2.4H, Sodium Level 137, Potassium Level 3.5, Chloride Level 104, Carbon Dioxide Level 21, Anion Gap 12, Blood Urea Nitrogen 5L, Creatinine 0.8, Estimat Glomerular Filtration Rate > 60, Glucose Level 132H, Calcium Level 8.2L, Total Bilirubin 0.4, Aspartate Amino Transf (AST/SGOT) 127H, Alanine Aminotransferase (ALT/SGPT) 110H, Alkaline Phosphatase 130H, Total Protein 6.7, Albumin 2.6L, Globulin 4.1, Albumin/Globulin Ratio 0.6L, Thyroid Stimulating Hormone (TSH) 1.692, Hepatitis A IgM Antibody [Pending], Hepatitis B Surface Antigen [Pending], Hepatitis B Core IgM Antibody [Pending], Hepatitis C Antibody [Pending] 09/14/20 14:57: Urine Color Yellow, Urine Appearance Clear, Urine pH 7, Urine Specific [place] 1.010, Urine Protein Negative, Urine Glucose (UA) Negative, Urine Ketones Negative, Urine Blood 4+H, Urine Nitrite Negative, Urine Bilirubin Negative, Urine Urobilinogen Normal, Urine Leukocyte Esterase Negative, Urine RBC 5-10H, Urine WBC 0-2, Urine Squamous Epithelial Cells Occasional, Urine Bacteria Few 09/15/20 07:10: White Blood Count 6.5, Red Blood Count 3.88L, Hemoglobin 12.4, Hematocrit 34.2L, Mean Corpuscular Volume 88, Mean Corpuscular Hemoglobin 31.9H, Mean Corpuscular Hemoglobin Concent 36.1H, Red Cell Distribution Width 10.9L, Platelet Count 219, Mean Platelet Volume 5.6L, Neutrophils (%) (Auto) 67.3, Lymphocytes (%) (Auto) 25.3, Monocytes (%) (Auto) 5.8, Eosinophils (%) (Auto) 0.0, Basophils (%) (Auto) 1.5, Sodium Level 130L, Potassium Level 2.9L, Chloride Level 98, Carbon Dioxide Level 21, Anion Gap 11, Blood Urea Nitrogen 5L, Creatinine 0.8, Estimat Glomerular Filtration Rate > 60, Glucose Level 151H, Calcium Level 7.8L, Total B ilirubin 0.6, Aspartate Amino Transf (AST/SGOT) 95H, Alanine Aminotransferase (ALT/SGPT) 93H, Alkaline Phosphatase 102, Total Protein 6.8, Albumin 2.5L, Globulin 4.3, Albumin/Globulin Ratio 0.6L, Erythrocyte Sedimentation Rate [Pending], Free Thyroxine 1.36, Vancomycin Level Trough 35.8H Height (Feet): 5 Height (Inches): 8.00 Weight (Pounds): 180 General Appearance: no apparent distress, alert EENT: PERRL/EOMI, normal ENT inspection, TMs normal, pharynx normal Neck: non-tender, normal alignment, supple Cardiovascular: normal peripheral pulses, normal rate, regular rhythm, no gallop/murmur, no JVD Respiratory/Chest: chest wall non-tender, lungs clear, normal breath sounds, no respiratory distress, no accessory muscle use Abdomen: normal bowel sounds, non tender, soft, other - obese Extremities: normal range of motion, non-tender, no calf tenderness Neurologic: oriented x 3 Assessment/Plan Problem List: (1) Bacteremia ICD Codes: R78.81 - Bacteremia SNOMED: 8035719 (2) Transaminitis ICD Codes: R74.01 - Elevation of levels of liver transaminase levels SNOMED: 374860334, 761670623 (3) UTI (urinary tract infection) ICD Codes: N39.0 - Urinary tract infection, site not specified SNOMED: 25765770, 690613278 (4) Pyelonephritis ICD Codes: N12 - Tubulo-interstitial nephritis, not specified as acute or chronic SNOMED: 98464025 (5) Hyponatremia ICD Codes: E87.1 - Hypo-osmolality and hyponatremia SNOMED: 83381042 (6) Myalgia ICD Codes: M79.10 - Myalgia, unspecified site SNOMED: 71958491 (7) Fatigue ICD Codes: R53.83 - Other fatigue SNOMED: 27099464 (8) Headache ICD Codes: R51.9 - Headache, unspecified SNOMED: 40120655 Status: stable Assessment/Plan: Previously healthy 60-year-old female presents to the hospital with fever, chills, diaphoresis and myalgias. She has blood cultures 2 out of 2 bottles that are growing staph epidermidis and likely contaminant patient has no history of central lines. Her UA looks infected, urine culture sent. She has no leukocytosis, T-max 102, lactate 1.9. Covid testing negative. #SIRS-likely viral syndrome. #Blood cultures, 2/2 bottles staph Epi likely contaminant #Asymptomatic bacteriuria Admit to [facility] Repeat blood cultures- NGTD Antibiotics with Zosyn and vancomycin Follow-up urine culture Tylenol as needed for fevers IV fluids ID consult: CT abdomen pelvis, diverticulitis and splenic infarct (incidental, normal EKG and TTE). ESR 65 #Transaminitis likely due to SIRS and Fatty liver Continue to monitor LFTs- trending down GI consult: Hepatitis panel Abdominal ultrasound- fatty liver #Hyponatremia-likely hypovolemic, continue monitor. IVF #Hypokalemia- replace prn VTE prophylaxis: Heparin Diet: Regular CODE STATUS: Full code I spent 42 minutes on this encounter. 25 minutes spent on counseling and care coordination. Plan of care discussed with patient ID physician and GI physician. Logan Chandra M.D. Sep 15, 2020 09:24
[2020-09-15 11:20] VITALS: BP 139/75
[2020-09-15] MEDS ORDERED: MACRODANTIN100 MG ORAL (15:36)
[2020-09-15] MEDS ORDERED: TRAMADOL HCL50 MG ORAL (15:36)
[2020-09-15 15:52] VITALS: BP 119/70
--- NOTE | 2020-09-15 16:57 | Infectious Diseases Prog Note ---
Assessment/Plan Assessment/Plan Full consult dictated: A) 1) ? sepsis, fevers, ? source, ? uti, ? 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 GI. abdominal pain, diarrhea, elevated LFT's 2) ? diverticulitis on CT, ? 3) pmh noted 4) allergies - nkda P) 1) vancomycin, zosyn for now - day # 2 2) f/u on cultures, monitor labs and temperatures 3) hepatitis panel negative, US and CT noted 4) continue treatment per Dr. Chandra and GI 5) will f/u Subjective Constitutional: Reports: fever HEENT: Denies: congestion Respiratory: Denies: shortness of breath Gastrointestinal/Abdominal: Reports: other - abdominal pain ; Denies: nausea, vomiting Neurologic: Denies: headache Skin: Denies: rash Allergies: Coded Allergies: No Known Allergies (Unverified , 02/17/15) Objective Last 24 Hour Vital Signs Date Time Temp Pulse Resp B/P (MAP) Pulse Ox O2 Delivery O2 Flow Rate FiO2 09/15/20 15:52 97.9 82 19 119/70 (86) 97 09/15/20 11:20 98.2 75 18 139/75 (96) 92 09/15/20 09:51 99.7 09/15/20 09:00 Room Air 09/15/20 08:00 101.5 97 19 119/69 (86) 96 09/15/20 04:00 99.0 85 20 134/80 (98) 95 09/15/20 00:00 102.3 105 22 137/67 (90) 95 09/14/20 22:32 99.8 09/14/20 20:54 Room Air 09/14/20 20:00 98.4 83 16 118/72 (87) 96 Height (Feet): 5 Height (Inches): 8.00 Weight (Pounds): 180 General Appearance: no acute distress HEENT: normocephalic, atraumatic, anicteric Respiratory/Chest: lungs clear, normal breath sounds, no respiratory distress Cardiovascular: normal rate, regular rhythm Abdomen: non distended, other - soft, + tenderness, no rebound Microbiology Date/Time Source Procedure Growth Status 09/13/20 16:40 Urine,Clean Catch Urine Culture - Final NO GROWTH AFTER 48 HOURS Complete 09/13/20 16:40 Nasopharynx SARS-CoV-2 RdRp Gene Assay - Final Complete 09/13/20 16:40 Blood Blood Culture - Preliminary NO GROWTH AFTER 24 HOURS Resulted 09/13/20 16:25 Blood Blood Culture - Preliminary NO GROWTH AFTER 24 HOURS Resulted Laboratory Tests Test 09/15/20 07:10 09/15/20 16:10 White Blood Count 6.5 K/UL (4.8-10.8) Red Blood Count 3.88 M/UL (4.20-5.40) L Hemoglobin 12.4 G/DL (12.0-16.0) Hematocrit 34.2 % (37.0-47.0) L Mean Corpuscular Volume 88 FL (80-99) Mean Corpuscular Hemoglobin 31.9 PG (27.0-31.0) H Mean Corpuscular Hemoglobin Concent 36.1 G/DL (32.0-36.0) H Red Cell Distribution Width 10.9 % (11.6-14.8) L Platelet Count 219 K/UL (150-450) Mean Platelet Volume 5.6 FL (6.5-10.1) L Neutrophils (%) (Auto) 67.3 % (45.0-75.0) Lymphocytes (%) (Auto) 25.3 % (20.0-45.0) Monocytes (%) (Auto) 5.8 % (1.0-10.0) Eosinophils (%) (Auto) 0.0 % (0.0-3.0) Basophils (%) (Auto) 1.5 % (0.0-2.0) Erythrocyte Sedimentation Rate 65 MM/HR (0-30) H Sodium Level 130 MMOL/L (136-145) L Potassium Level 2.9 MMOL/L (3.5-5.1) L Chloride Level 98 MMOL/L (98-107) Carbon Dioxide Level 21 MMOL/L (21-32) Anion Gap 11 mmol/L (5-15) Blood Urea Nitrogen 5 mg/dL (7-18) L Creatinine 0.8 MG/DL (0.55-1.30) Estimat Glomerular Filtration Rate > 60 mL/min (>60) Glucose Level 151 MG/DL (74-106) H Calcium Level 7.8 MG/DL (8.5-10.1) L Total Bilirubin 0.6 MG/DL (0.2-1.0) Aspartate Amino Transf (AST/SGOT) 95 U/L (15-37) H Alanine Aminotransferase (ALT/SGPT) 93 U/L (12-78) H Alkaline Phosphatase 102 U/L (46-116) Total Protein 6.8 G/DL (6.4-8.2) Albumin 2.5 G/DL (3.4-5.0) L Globulin 4.3 g/dL Albumin/Globulin Ratio 0.6 (1.0-2.7) L Free Thyroxine 1.36 NG/DL (0.76-1.46) Vancomycin Level Trough 35.8 ug/mL (5.0-12.0) H Pending Current Medications Medications (Trade) Dose Ordered Sig/Ghassan Route PRN Reason Start Time Stop Time Status Last Admin Dose Admin Acetaminophen (Tylenol) 650 mg Q4H PRN ORAL Mild Pain (Pain Scale 1-3) 09/13/20 18:00 10/13/20 17:59 09/14/20 06:28 Acetaminophen (Tylenol) 650 mg Q4H PRN ORAL FEVER 09/14/20 10:15 10/14/20 10:14 09/15/20 08:07 Al Hydroxide/Mg Hydroxide (Mylanta II) 30 ml Q6H PRN ORAL dyspepsia 09/13/20 18:00 10/13/20 17:59 Albuterol/ Ipratropium (Albuterol/ Ipratropium) 3 ml TIDPRN PRN HHN Shortness of Breath 09/13/20 18:00 09/18/20 17:59 Dextrose (Dextrose 50%) 25 ml Q30M PRN IV Hypoglycemia 09/13/20 18:00 12/12/20 17:59 Dextrose (Dextrose 50%) 50 ml Q30M PRN IV Hypoglycemia 09/13/20 18:00 12/12/20 17:59 Diphenhydramine HCl (Benadryl) 25 mg Q6H PRN ORAL Itching/Pruritis 09/13/20 18:00 10/13/20 17:59 Enoxaparin Sodium (Lovenox) 40 mg Q24H SUBQ 09/13/20 21:00 12/12/20 20:59 09/14/20 21:56 Hydromorphone HCl (Dilaudid) 0.5 mg Q6H PRN IVP Moderate Pain (Pain Scale 4-6) 09/13/20 18:00 09/20/20 17:59 Hydromorphone HCl (Dilaudid) 2 mg Q6H PRN IVP Severe Pain (Pain Scale 7-10) 09/13/20 18:00 09/20/20 17:59 09/15/20 08:06 Magnesium Hydroxide (Mom) 30 ml HSPRN PRN ORAL Constipation 09/13/20 18:00 10/13/20 17:59 Nitroglycerin (Ntg) 0.4 mg Q5M X 3 DOSES PRN SL Prn Chest Pain 09/13/20 18:00 10/13/20 17:59 Ondansetron HCl (Zofran) 4 mg Q6H PRN IVP Nausea & Vomiting 09/13/20 18:00 10/13/20 17:59 09/15/20 16:29 Piperacillin Sod/ Tazobactam Sod 3.375 gm/Dextrose 100 ml @ 25 mls/hr Q8H IVPB 09/14/20 16:00 09/21/20 15:59 09/15/20 16:29 Sodium Chloride 1,000 ml @ 125 mls/hr Q8H IVLG 09/13/20 19:00 10/13/20 18:59 09/15/20 13:45 Vancomycin HCl (Vanco pharmacy to dose) 1 ea DAILY PRN MISC Per rx protocol 09/13/20 18:15 10/13/20 18:14 Vancomycin HCl 1 gm/Dextrose 275 ml @ 183.708 mls/hr Q12H IVPB 09/14/20 05:00 09/19/20 04:59 09/15/20 06:00 Kaur Mazariegos MD Sep 15, 2020 16:57
[2020-09-15] MEDS: NS w/KCl 20mEq 1000ml 1,000 ML IV SCH (18:32)
[2020-09-15 20:00] VITALS: BP 130/79
[2020-09-15] MEDS: Vancomycin 1.25gm/NS Premix q24h IVPB SCH (21:08)
[2020-09-15] MEDS: Enoxaparin 40mg Inj SUBQ SCH (21:10)
--- NOTE | 2020-09-15 23:30 | Consultation ---
DATE OF CONSULTATION: 09/15/2020 ADDENDUM An echo was also ordered and that showed there is no vegetation. I am awaiting results of that, especially with the history of possible coag-negative staph bacteremia. Kaur Mazariegos M.D. DR: JEFF JOB#: [id number] CC:
[2020-09-16] VITALS: BP 127/60
--- NOTE | 2020-09-16 | Consultation ---
DATE OF CONSULTATION: 09/15/2020 INFECTIOUS DISEASE CONSULT ATTENDING PHYSICIAN: Logan Chandra M.D. REFERRING PHYSICIAN: Logan Chandra M.D. REASON FOR CONSULTATION: Fevers, possible sepsis, possible coag-negative staph bacteremia, abdominal pain, nausea, vomiting, diarrhea, elevated LFTs, possible viral gastroenteritis, possible diverticulitis. Her chief complaint coming into the hospital is fevers, sepsis, coag-negative staph bacteremia. HISTORY OF PRESENT ILLNESS: This is a 60-year-old female who comes into [facility] with fevers. The patient on admission had temperature as high as 102 and 103. The patient was recently in the emergency room where she had blood cultures that were positive for coag-negative staph. The patient had COVID testing at that time which was negative, and COVID testing again here during this admission was negative. Infectious disease consultation was requested because of the persistent fevers, concern for the patient to be septic, history of possible coag-negative staph bacteremia, and also abdominal pain, nausea, vomiting, diarrhea, elevated LFTs. The patient is being seen by GI. Hepatitis panel was negative. When I saw the patient yesterday, the patient was empirically started on vancomycin and Zosyn. She is still febrile today. A CT scan of the abdomen and pelvis was done. There is no obvious acute abnormality; however, there was sigmoid colon thickening in the right clinical setting, could be diverticulitis that would be uncomplicated. She also has splenic infarcts, unclear what the etiology of this is. Blood cultures so far negative to date. The patient will continue vancomycin and Zosyn at this time. MAR was noted. Orders were noted. Notes and records were reviewed. Case was again discussed with Dr. Chandra and the patient and the patient's family. Also, case was discussed with RN. REVIEW OF SYSTEMS: CONSTITUTIONAL: Generalized fatigue. As discussed, she has been having fevers, I believe chills. HEAD AND NECK: No head pain, neck pain. CARDIAC: No chest pain. GASTROINTESTINAL: She has been having nausea and vomiting. No diarrhea currently. I believe she came in with diarrhea. PULMONARY: No cough, congestion, or shortness of breath. No productive cough, hemoptysis, or secretions. SKIN: No rash or itching. EXTREMITIES: No extremity pain. NEUROLOGIC: No seizures. Denies fatigue. No focal weakness. PAST MEDICAL HISTORY: The patient, per the records, has no significant past medical history. She does have the transaminitis as discussed. However, she has no history of liver disease. Otherwise, past medical history of unremarkable. There is no history of diabetes, hypertension, or cancer. ALLERGIES: She has no known drug allergies. No antibiotic allergies. SOCIAL HISTORY: Negative for smoking, alcohol, or drug abuse. FAMILY HISTORY: Noncontributory. MEDICATIONS: Upon reviewing the MAR, she is on following medications: Vancomycin, Zosyn, Zofran, acetaminophen, IV fluids, enoxaparin, nitroglycerin, diphenhydramine, magnesium hydroxide, hydromorphone, acetaminophen, albuterol treatments. Outside medications were noted, and again she has no significant past medical history. PHYSICAL EXAMINATION: VITAL SIGNS: Temperature 97.9, pulse rate 82, respiratory rate 19, blood pressure 119/70, saturation 97%. T-max today is 102.3. Yesterday, it was 103. On admission, it was 102. GENERAL: Alert, responsive, no distress. HEAD AND NECK: Oral exam, no thrush. Eye exam, no icterus. Normocephalic. No JVD. Neck is supple. HEART: Regular. No gallop or murmur. No friction rub. ABDOMEN: Soft. Positive bowel sounds. Nontender. No rebound. LUNGS: Clear bilaterally. No rhonchi or rales. SKIN: No rash or dermatitis. MUSCULOSKELETAL: No evidence of septic arthritis. Lower extremity exam without cellulitis. PERIPHERAL VASCULAR: No cyanosis or gangrene. GENITOURINARY: The patient has no Guthrie. No obvious CVA tenderness. LINE SITES: Without phlebitis. NEUROLOGIC: Generalized weakness. Alert and responsive. Seems to be oriented. Nonfocal. LABORATORY DATA FOLLOWS: Laboratory as follows: Hepatitis panel is negative for hepatitis A IgM, hepatitis B antigen core IgM negative, and hepatitis C antibody was negative. Creatinine is 0.8, sodium 130, creatinine 0.81, sodium 130. LFTs, AST on admission is 127, alk phos 130, and ALT 110. Today, AST is 95, ALT 93. The patient's white count 6.5, hemoglobin 12.4. Urinalysis had positive nitrite, 2+ leukocyte esterase, 23 white blood cells, many bacteria. Cultures, urine culture and blood cultures negative to date. ESR 65. SARS testing in the ER on previous admission or visit was negative. IMAGING STUDIES: Chest x-ray showed no acute disease. No acute process. Abdominal ultrasound showed diffuse increased echogenicity consistent with hepatocellular disease. CT scan of the abdomen and pelvis showed splenic infarct. It also showed sigmoid colon thickening, possible diverticulitis in the proper clinical setting. ASSESSMENT AND PLAN: 1. Question if the patient has sepsis. The patient's lactic acid was unremarkable. Blood and urine cultures negative. Differential diagnosis for this patient's abdominal pain, nausea, vomiting, diarrhea includes possible viral gastroenteritis, possible diverticulitis, possible UTI/pyelonephritis with positive urinalysis. The patient has possible coag-negative staph bacteremia even though this could also be contaminant. Previous ER visit did have positive cultures in multiple bottles with coag-negative staph, I believe Staphylococcus epidermidis, make sure, which was sensitive to vancomycin and tetracycline. At this time, I will continue vancomycin and Zosyn. This will cover gram-positives and gram-negatives. Continue vancomycin and Zosyn for possible urinary tract infection and pyelonephritis, diverticulitis, and questionable coag-negative staph bacteremia versus contaminant. If the blood cultures remain negative, consider stopping the vancomycin. We will recheck urinalysis to see if the UA has improved on Zosyn for possible UTI. Regarding possible diverticulitis, we will monitor the patient's abdominal pain. GI is following. Because of the elevated LFTs, in addition to hepatitis panel, which is negative, we will add EBV and CMV serology to see if there is an infection there with regard to EBV and CMV which could cause elevated LFTs and also viral syndrome. The patient also certainly could have viral syndrome or viral gastroenteritis. COVID testing is negative. We will monitor the patient clinically. Follow up on cultures and labs. Recheck UA and C and S. Stool studies were ordered because of diarrhea; however, currently she has not had diarrhea. Monitor the patient on vancomycin and Zosyn. Again, we will adjust antibiotics accordingly based on workup. 2. No other significant past medical history. 3. Elevated LFTs and abdominal pain. GI is following. 4. COVID testing is negative. 5. IV fluids. 6. Case discussed with Dr. Chandra. 7. No known allergies. 8. Social history negative. 9. Family history noncontributory. 10. MAR was noted and reviewed 11. No known drug allergies. 12. Case was discussed with RN. 13. Case was discussed with Dr. Chandra. Kaur Mazariegos M.D. DR: JEFF JOB#: [id number] CC: ANNE
[2020-09-16 04:00] VITALS: BP 125/72
[2020-09-16] MEDS: NS w/KCl 20mEq 1000ml 1,000 ML IV SCH ×2 (05:11→15:46)
[2020-09-16 06:06] LABS: APPEARANCE,URINE CLEAR; BILIRUBIN, URINE NEGATIVE (NEGATIVE); COLOR,URINE PALE YELLOW; GLUCOSE, URINE (UA) NEGATIVE (NEGATIVE); KETONES,URINE NEGATIVE (NEGATIVE); LEUKOCYTE ESTERASE ,URINE NEGATIVE (NEGATIVE); NITRITE,URINE NEGATIVE (NEGATIVE); PH,URINE 5 (4.5-8.0); PROTEIN,URINE 1+ (NEGATIVE); UROBILINOGEN,URINE NORMAL MG/DL (0.0-1.0)
[2020-09-16 07:52] LABS: BASOPHILS % (AUTO) 1.8 % (0.0-2.0); HEMATOCRIT 34.3 % (37.0-47.0); HEMOGLOBIN 12.4 G/DL (12.0-16.0); LYMPHOCYTES % (AUTO) 24.9 % (20.0-45.0); MEAN CORPUSCULAR VOLUME 88 FL (80-99); MONOCYTES % (AUTO) 4.9 % (1.0-10.0); NEUTROPHILS % (AUTO) 68.4 % (45.0-75.0); PLATELET COUNT 234 K/UL (150-450); RED CELL DISTRIBUTION WIDTH 11.3 % (11.6-14.8)
[2020-09-16 08:00] VITALS: BP 121/66
[2020-09-16] MEDS: Vancomycin 1.25gm/NS Premix q24h IVPB SCH ×2 (08:30→20:33)
[2020-09-16 08:43] LABS: ALBUMIN 2.4 G/DL (3.4-5.0); ALBUMIN/GLOBULIN RATIO 0.5 (1.0-2.7); BILIRUBIN,TOTAL 0.5 MG/DL (0.2-1.0); CALCIUM 7.9 MG/DL (8.5-10.1); POTASSIUM 3.1 MMOL/L (3.5-5.1)
--- NOTE | 2020-09-16 09:01 | Cardiology Report ---
APPROVED REPORT EXAM: Two-dimensional and M-mode echocardiogram with Doppler and color Doppler. INDICATION Vegetation M-Mode DIMENSIONS IVSd1.2 (0.7-1.1cm)Left Atrium (MM)4.0 (1.6-4.0cm) LVDd5.6 (3.5-5.6cm)Aortic Root2.8 (2.0-3.7cm) PWd1.2 (0.7-1.1cm)Aortic Cusp Exc.1.8 (1.5-2.0cm) IVSs1.8 cmEPSS0.6 (>1.0cm) LVDs3.7 (2.5-4.0cm) PWs2.3 cm Other Information <Conclusion> Technically difficulty study due to poor parasternal acoustical windows and pt's breathing. Normal left ventricular chamber size, systolic function and wall motion. Left ventricular ejection fraction estimated to be 60-65 %. No evidence of left ventricular hypertrophy. Small pericardial effusion along the free wall of RV. All other cardiac chamber sizes are within normal limits. Focal aortic valve sclerosis with adequate cusp excursion. Thickened mitral valve leaflets with normal excursion. Mitral annulus and aortic root calcification. Pulmonic valve not well visualized. Normal tricuspid valve structure. IVC at normal size with physiologic collapse. No discrete vegetations seen, however SBE may not be excluded by transthoracic 2-D echo. A color flow and spectral Doppler study was performed and revealed: No aortic regurgitation. Trace mitral regurgitation. Mitral inflow indicates normal left ventricular diastolic function. Trace tricuspid regurgitation. Tricuspid systolic velocities suggests peak right ventricular systolic pressure of 30 mmHg. No pulmonic regurgitation present.
--- NOTE | 2020-09-16 09:03 | General Progress Note ---
Subjective Date patient seen: Sep 16, 2020 ROS Limited/Unobtainable: No Constitutional: Denies: no symptoms, chills, diaphoresis, fever, malaise, weakness, other HEENT: Denies: no symptoms, eye pain, blurred vision, tearing, double vision, ear pain, ear discharge, nose pain, nose congestion, throat pain, throat swelling, mouth pain, mouth swelling, other Cardiovascular: Denies: no symptoms, chest pain, edema, irregular heart rate, lightheadedness, palpitations, syncope, other Respiratory: Denies: no symptoms, cough, orthopnea, shortness of breath, SOB with excertion, SOB at rest, sputum, stridor, wheezing, other Gastrointestinal/Abdominal: Denies: no symptoms, abdomen distended, abdominal pain, black stools, tarry stools, blood in stool, constipated, diarrhea, difficulty swallowing, nausea, poor appetite, poor fluid intake, rectal bleeding, vomiting, other Genitourinary: Denies: no symptoms, burning, discharge, frequency, flank pain, hematuria, incontinence, pain, urgency, other Neurologic/Psychiatric: Denies: no symptoms, anxiety, depressed, emotional p roblems, headache, numbness, paresthesia, pre-existing deficit, seizure, tingling, tremors, weakness, other Endocrine: Denies: no symptoms, excessive sweating, flushing, intolerance to cold, intolerance to heat, increased hunger, increased thirst, increased urine, unexplained weight gain, unexplained weight loss, other Hematologic/Lymphatic: Denies: no symptoms, anemia, easy bleeding, easy bruising, other Allergies: Coded Allergies: No Known Allergies (Unverified , 02/17/15) Subjective AFVSS feels much better today, no n/v/d yet Hepatitis panel negative LFTs trending down HbA1c 7.1- d/w patient diagnosis of DM stool studies pending EBM, CMV pending blood and urine cultures all negative to date Objective Last 24 Hour Vital Signs Date Time Temp Pulse Resp B/P (MAP) Pulse Ox O2 Delivery O2 Flow Rate FiO2 09/16/20 08:00 96.6 85 19 121/66 (84) 92 09/16/20 05:05 99.0 09/16/20 04:14 99.0 09/16/20 04:00 101.5 99 22 125/72 (89) 95 09/16/20 01:04 98.9 09/16/20 00:00 100.9 90 20 127/60 (82) 94 09/15/20 21:00 Room Air 09/15/20 20:00 97.5 86 18 130/79 (96) 96 09/15/20 15:52 97.9 82 19 119/70 (86) 97 09/15/20 11:20 98.2 75 18 139/75 (96) 92 09/15/20 09:51 99.7 Intake and Output 09/15/20 09/16/20 19:00 07:00 Intake Total 1606.292 ml 1995.000 ml Balance 1606.292 ml 1995.000 ml Intake Oral 240 ml 360 ml IV Total 1366.292 ml 1275.000 ml Other 360 ml # Voids 2 6 # Bowel Movements 1 2 Laboratory Tests 09/15/20 16:10: Vancomycin Level Trough 9.0 09/16/20 03:50: Urine Color Pale yellow, Urine Appearance Clear, Urine pH 5, Urine Specific [place] 1.010, Urine Protein 1+H, Urine Glucose (UA) Negative, Urine Ketones Negative, Urine Blood 4+H, Urine Nitrite Negative, Urine Bilirubin Negative, Urine Urobilinogen Normal, Urine Leukocyte Esterase Negative, Urine RBC 2-4H, Urine WBC 2-4, Urine Squamous Epithelial Cells Few, Urine Bacteria None, Urine Mucus FewH 09/16/20 07:30: White Blood Count 5.0, Red Blood Count 3.90L, Hemoglobin 12.4, Hematocrit 34.3L, Mean Corpuscular Volume 88, Mean Corpuscular Hemoglobin 31.9H, Mean Corpuscular Hemoglobin Concent 36.2H, Red Cell Distribution Width 11.3L, Platelet Count 234, Mean Platelet Volume 5.5L, Neutrophils (%) (Auto) 68.4, Lymphocytes (%) (Auto) 24.9, Monocytes (%) (Auto) 4.9, Eosinophils (%) (Auto) 0.0, Basophils (%) (Auto) 1.8, Sodium Level 137, Potassium Level 3.1L, Chloride Level 103, Carbon Dioxide Level 25, Anion Gap 9, Blood Urea Nitrogen 5L, Creatinine 1.0, Estimat Glomerular Filtration Rate 56.8, Glucose Level 143H, Hemoglobin A1c 7.1H, Calcium Level 7.9L, Total Bilirubin 0.5, Aspartate Amino Transf (AST/SGOT) 84H, Alanine Aminotransferase (ALT/SGPT) 84H, Alkaline Phosphatase 100, Total Protein 6.9, Albumin 2.4L, Globulin 4.5, Albumin/Globulin Ratio 0.5L, Cytomegalovirus DNA Qual (PCR) [Pending], Asif-Herndon Virus Capsid Ag IgG Ab [Pending], Asif-[place]ern[place] Virus Capsid Ag IgM Ab [Pending], Asif-Herndon DNA Quant copies/mL [Pending], Asif-Herndon Quant PCR Plasma log10 [Pending] Height (Feet): 5 Height (Inches): 8.00 Weight (Pounds): 180 General Appearance: WD/WN, no apparent distress, alert, overweight EENT: PERRL/EOMI, normal ENT inspection, TMs normal, pharynx normal Neck: non-tender, normal alignment, supple, normal inspection Cardiovascular: normal peripheral pulses, normal rate, regular rhythm, no JVD Respiratory/Chest: chest wall non-tender, lungs clear, normal breath sounds, no respiratory distress Abdomen: normal bowel sounds, non tender, soft, no organomegaly Extremities: normal range of motion Neurologic: top distribution executive II-XII grossly normal, no motor/sensory deficits, alert, oriented x 3 Skin: normal pigmentation Assessment/Plan Problem List: (1) Bacteremia ICD Codes: R78.81 - Bacteremia SNOMED: 0478069 (2) Transaminitis ICD Codes: R74.01 - Elevation of levels of liver transaminase levels SNOMED: 412428581, 972713689 (3) UTI (urinary tract infection) ICD Codes: N39.0 - Urinary tract infection, site not specified SNOMED: 62006796, 642618453 (4) Pyelonephritis ICD Codes: N12 - Tubulo-interstitial nephritis, not specified as acute or chronic SNOMED: 53530448 (5) Hyponatremia ICD Codes: E87.1 - Hypo-osmolality and hyponatremia SNOMED: 92663524 (6) Myalgia ICD Codes: M79.10 - Myalgia, unspecified site SNOMED: 41420229 (7) Fatigue ICD Codes: R53.83 - Other fatigue SNOMED: 64714292 (8) Headache ICD Codes: R51.9 - Headache, unspecified SNOMED: 33774585 (9) Diabetes mellitus ICD Codes: E11.9 - Type 2 diabetes mellitus without complications SNOMED: 46452252 Status: stable Assessment/Plan: Previously healthy 60-year-old female presents to the hospital with fever, chills, diaphoresis and myalgias. She has blood cultures 2 out of 2 bottles that are growing staph epidermidis and likely contaminant patient has no history of central lines. Her UA looks infected, urine culture sent. She has no leukocytosis, T-max 102, lactate 1.9. Covid testing negative. #SIRS-likely viral syndrome. #Blood cultures, 2/2 bottles staph Epi likely contaminant #Asymptomatic bacteriuria #Possible viral gastroenteritis Admit to [facility] Repeat blood cultures- NGTD Antibiotics with Zosyn and vancomycin Follow-up urine culture Tylenol as needed for fevers IV fluids ID consult: CT abdomen pelvis, diverticulitis and splenic infarct (incidental, normal EKG and TTE). ESR 65 follow up CMV, EBV #Transaminitis likely due to SIRS and Fatty liver Continue to monitor LFTs- trending down GI consult: Hepatitis panel Abdominal ultrasound- fatty liver follow up cmv, ebv #Hyponatremia-likely hypovolemic, continue monitor. IVF #Hypokalemia- replace prn #New onset DM II hba1c 7.1 insulin prn for now Metformin on discharge patient counselled on weight loss VTE prophylaxis: Heparin Diet: Regular CODE STATUS: Full code I spent 42 minutes on this encounter. 25 minutes spent on counseling and care coordination. Plan of care discussed with patient ID physician and GI physician. Logan Chandra M.D. Sep 16, 2020 09:03
--- NOTE | 2020-09-16 10:03 | General Progress Note ---
Subjective ROS Limited/Unobtainable: No Allergies: Coded Allergies: No Known Allergies (Unverified , 02/17/15) Objective Last 24 Hour Vital Signs Date Time Temp Pulse Resp B/P (MAP) Pulse Ox O2 Delivery O2 Flow Rate FiO2 09/16/20 08:00 96.6 85 19 121/66 (84) 92 09/16/20 05:05 99.0 09/16/20 04:14 99.0 09/16/20 04:00 101.5 99 22 125/72 (89) 95 09/16/20 01:04 98.9 09/16/20 00:00 100.9 90 20 127/60 (82) 94 09/15/20 21:00 Room Air 09/15/20 20:00 97.5 86 18 130/79 (96) 96 09/15/20 15:52 97.9 82 19 119/70 (86) 97 09/15/20 11:20 98.2 75 18 139/75 (96) 92 Intake and Output0 09/15/20 09/16/20 19:00 07:00 Intake Total 1606.292 ml 1995.000 ml Balance 1606.292 ml 1995.000 ml Intake Oral 240 ml 360 ml IV Total 1366.292 ml 1275.000 ml Other 360 ml # Voids 2 6 # Bowel Movements 1 2 Laboratory Tests 09/15/20 16:10: Vancomycin Level Trough 9.0 09/16/20 03:50: Urine Color Pale yellow, Urine Appearance Clear, Urine pH 5, Urine Specific [place] 1.010, Urine Protein 1+H, Urine Glucose (UA) Negative, Urine Ketones Negative, Urine Blood 4+H, Urine Nitrite Negative, Urine Bilirubin Negative, Urine Urobilinogen Normal, Urine Leukocyte Esterase Negative, Urine RBC 2-4H, Urine WBC 2-4, Urine Squamous Epithelial Cells Few, Urine Bacteria None, Urine Mucus FewH 09/16/20 07:30: White Blood Count 5.0, Red Blood Count 3.90L, Hemoglobin 12.4, Hematocrit 34.3L, Mean Corpuscular Volume 88, Mean Corpuscular Hemoglobin 31.9H, Mean Corpuscular Hemoglobin Concent 36.2H, Red Cell Distribution Width 11.3L, Platelet Count 234, Mean Platelet Volume 5.5L, Neutrophils (%) (Auto) 68.4, Lymphocytes (%) (Auto) 24.9, Monocytes (%) (Auto) 4.9, Eosinophils (%) (Auto) 0.0, Basophils (%) (Auto) 1.8, Sodium Level 137, Potassium Level 3.1L, Chloride Level 103, Carbon Dioxide Level 25, Anion Gap 9, Blood Urea Nitrogen 5L, Creatinine 1.0, Estimat Glomerular Filtration Rate 56.8, Glucose Level 143H, Hemoglobin A1c 7.1H, Calcium Level 7.9L, Total Bilirubin 0.5, Aspartate Amino Transf (AST/SGOT) 84H, Alanine Aminotransferase (ALT/SGPT) 84H, Alkaline Phosphatase 100, Total Protein 6.9, Albumin 2.4L, Globulin 4.5, Albumin/Globulin Ratio 0.5L, Cytomegalovirus DNA Qual (PCR) [Pending], Asif-Hern[place] Virus Capsid Ag IgG Ab [Pending], Asif-[place]ern[place] Virus Capsid Ag IgM Ab [Pending], Asif-[place]erndon DNA Quant copies/mL [Pending], Asif-Herndon Quant PCR Plasma log10 [Pending] Height (Feet): 5 Height (Inches): 8.00 Weight (Pounds): 180 General Appearance: no apparent distress EENT: normal ENT inspection Neck: supple Cardiovascular: normal rate Respiratory/Chest: decreased breath sounds Abdomen: normal bowel sounds, non tender, soft Extremities: non-tender Assessment/Plan Problem List: (1) Transaminitis ICD Codes: R74.01 - Elevation of levels of liver transaminase levels SNOMED: 842145601, 740810041 (2) Bacteremia ICD Codes: R78.81 - Bacteremia SNOMED: 9718977 (3) Myalgia ICD Codes: M79.10 - Myalgia, unspecified site SNOMED: 51308014 (4) Fatigue ICD Codes: R53.83 - Other fatigue SNOMED: 33887314 Status: stable Assessment/Plan: elevated LFTS possibly due to sepsis and fatty liver abd us>>> reviewed repeat labs hepatitis panel>>> neg CT reviewed ? diverticulitis on abx per ID needs out patient fu for colonoscopy in 8 weeks will Louis Florez MD Sep 16, 2020 10:03
[2020-09-16 12:00] VITALS: BP 155/88
[2020-09-16] MEDS: guaiFENesin 100mg/5ml Liq ud ORAL PRN ×2 (14:32→23:12)
[2020-09-16 16:00] VITALS: BP 131/70
[2020-09-16] MEDS: NovoLOG Insulin Flexpen SUBQ SCH ×2 (17:08→20:37)
--- NOTE | 2020-09-16 19:33 | Cardiology Report ---
APPROVED REPORT EKG Measurement Heart [id number] <Conclusion> Normal sinus rhythm Normal ECG
--- NOTE | 2020-09-16 19:36 | Cardiology Report ---
APPROVED REPORT EKG Measurement Heart [id number] <Conclusion> Normal sinus rhythm Normal ECG
[2020-09-16 20:00] VITALS: BP 118/70
[2020-09-16] MEDS: Enoxaparin 40mg Inj SUBQ SCH (20:34)
[2020-09-17] VITALS (7 sets, daily range): BP systolic 112–146; BP diastolic 67–82
[2020-09-17] MEDS: NS w/KCl 20mEq 1000ml 1,000 ML IV SCH ×3 (00:26→20:17)
[2020-09-17] MEDS: NovoLOG Insulin Flexpen SUBQ SCH ×4 (06:19→20:19)
[2020-09-17 07:00] LABS: BASOPHILS % (AUTO) 1.4 % (0.0-2.0); EOSINOPHILS % (AUTO) 0.1 % (0.0-3.0); HEMATOCRIT 33.4 % (37.0-47.0); HEMOGLOBIN 12.2 G/DL (12.0-16.0); LYMPHOCYTES % (AUTO) 28.6 % (20.0-45.0); MEAN CORPUSCULAR VOLUME 88 FL (80-99); MONOCYTES % (AUTO) 8.1 % (1.0-10.0); NEUTROPHILS % (AUTO) 61.8 % (45.0-75.0); PLATELET COUNT 242 K/UL (150-450); RED BLOOD COUNT 3.81 M/UL (4.20-5.40); RED CELL DISTRIBUTION WIDTH 11.2 % (11.6-14.8); WHITE BLOOD COUNT 4.8 K/UL (4.8-10.8)
[2020-09-17 07:11] LABS: ALBUMIN 2.3 G/DL (3.4-5.0); ALBUMIN/GLOBULIN RATIO 0.6 (1.0-2.7); BILIRUBIN,TOTAL 0.5 MG/DL (0.2-1.0); CALCIUM 8.1 MG/DL (8.5-10.1); POTASSIUM 3.1 MMOL/L (3.5-5.1)
[2020-09-17] MEDS: Vancomycin 1.25gm/NS Premix q24h IVPB SCH (08:37)
--- NOTE | 2020-09-17 09:18 | General Progress Note ---
Subjective Date patient seen: Sep 17, 2020 ROS Limited/Unobtainable: No Constitutional: Reports: fever HEENT: Denies: no symptoms, eye pain, blurred vision, tearing, double vision, ear pain, ear discharge, nose pain, nose congestion, throat pain, throat swelling, mouth pain, mouth swelling, other Cardiovascular: Denies: no symptoms, chest pain, edema, irregular heart rate, lightheadedness, palpitations, syncope, other Gastrointestinal/Abdominal: Reports: abdominal pain - epigastric Genitourinary: Denies: no symptoms, burning, discharge, frequency, flank pain, hematuria, incontinence, pain, urgency, other Neurologic/Psychiatric: Denies: no symptoms, anxiety, depressed, emotional problems, headache, numbness, paresthesia, pre-existing deficit, seizure, tingling, tremors, weakness, other Hematologic/Lymphatic: Denies: no symptoms, anemia, easy bleeding, easy bruising, other Allergies: Coded Allergies: No Known Allergies (Unverified , 02/17/15) Subjective Clinically much better however continues to have high fevers Hepatitis panel negative LFTs trending down HbA1c 7.1- d/w patient diagnosis of DM stool studies pending EBM, CMV pending blood and urine cultures from ER 09/09- growing Brucella Objective Last 24 Hour Vital Signs Date Time Temp Pulse Resp B/P (MAP) Pulse Ox O2 Delivery O2 Flow Rate FiO2 09/17/20 08:00 97.5 74 18 112/67 (82) 94 09/17/20 04:50 97.7 09/17/20 04:00 102.6 101 22 125/78 (94) 94 09/17/20 00:00 98.2 107 22 142/82 (102) 97 09/16/20 21:00 Room Air 09/16/20 20:14 72 18 94 Room Air 21 09/16/20 20:00 97.7 74 20 118/70 (86) 93 09/16/20 16:25 99.9 09/16/20 16:00 99.9 98 19 131/70 (90) 94 09/16/20 12:04 102 18 96 Room Air 21 98 18 93 09/16/20 12:00 98.1 92 20 155/88 (110) 91 Intake and Output 09/16/20 09/17/20 19:00 07:00 Intake Total 1656 ml 2580.000 ml Balance 1656 ml 2580.000 ml Intake Oral 480 ml IV Total 1656 ml 1500.000 ml Other 600 ml # Voids 2 Laboratory Tests 09/16/20 16:50: POC Whole Blood Glucose 150H 09/16/20 20:36: POC Whole Blood Glucose 111H 09/17/20 06:10: POC Whole Blood Glucose 125H 09/17/20 06:42: White Blood Count 4.8, Red Blood Count 3.81L, Hemoglobin 12.2, Hematocrit 33.4L, Mean Corpuscular Volume 88, Mean Corpuscular Hemoglobin 32.0H, Mean Corpuscular Hemoglobin Concent 36.5H, Red Cell Distribution Width 11.2L, Platelet Count 242, Mean Platelet Volume 5.7L, Neutrophils (%) (Auto) 61.8, Lymphocytes (%) (Auto) 28.6, Monocytes (%) (Auto) 8.1, Eosinophils (%) (Auto) 0.1, Basophils (%) (Auto) 1.4, Sodium Level 138, Potassium Level 3.1L, Chloride Level 105, Carbon Dioxide Level 24, Anion Gap 9, Blood Urea Nitrogen 3L, Creatinine 1.0, Estimat Glomerular Filtration Rate 56.8, Glucose Level 132H, Calcium Level 8.1L, Total Bilirubin 0.5, Aspartate Amino Transf (AST/SGOT) 123H, Alanine Aminotransferase (ALT/SGPT) 84H, Alkaline Phosphatase 103, Total Protein 6.2L, Albumin 2.3L, Globulin 3.9, Albumin/Globulin Ratio 0.6L, Vancomycin Level Trough 11.2 Height (Feet): 5 Height (Inches): 8.00 Weight (Pounds): 180 Objective General Appearance: WD/WN, no apparent distress, alert, overweight EENT: PERRL/EOMI, normal ENT inspection, TMs normal, pharynx normal Neck: non-tender, normal alignment, supple, normal inspection Cardiovascular: normal peripheral pulses, normal rate, regular rhythm, no JVD Respiratory/Chest: chest wall non-tender, lungs clear, normal breath sounds, no respiratory distress Abdomen: epigastric tenderness, no guarding Extremities: normal range of motion 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, no motor/sensory deficits, alert, oriented x 3 Skin: normal pigmentation Assessment/Plan Problem List: (1) Sepsis ICD Codes: A41.9 - Sepsis, unspecified organism SNOMED: 81037670 (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, unspecified SNOMED: 00817884 (3) Bacteremia ICD Codes: R78.81 - Bacteremia SNOMED: 4152518 (4) Transaminitis ICD Codes: R74.01 - Elevation of levels of liver transaminase levels SNOMED: 137453184, 116420000 (5) UTI (urinary tract infection) ICD Codes: N39.0 - Urinary tract infection, site not specified SNOMED: 61807347, 284888889 (6) Pyelonephritis ICD Codes: N12 - Tubulo-interstitial nephritis, not specified as acute or chronic SNOMED: 37006996 (7) Hyponatremia ICD Codes: E87.1 - Hypo-osmolality and hyponatremia SNOMED: 74752755 (8) Myalgia ICD Codes: M79.10 - Myalgia, unspecified site SNOMED: 45530590 (9) Fatigue ICD Codes: R53.83 - Other fatigue SNOMED: 62415432 (10) Headache ICD Codes: R51.9 - Headache, unspecified SNOMED: 09757449 (11) Diabetes mellitus ICD Codes: E11.9 - Type 2 diabetes mellitus without complications SNOMED: 62192184 Status: stable Assessment/Plan: Previously healthy 60-year-old female presents to the hospital with undulant fevers, chills, diaphoresis and myalgias. She has blood cultures 2 out of 2 bottles that are growing staph epidermidis and likely contaminant patient has no history of central lines. Her UA looks infected, urine culture sent. She has no leukocytosis, T-max 102, lactate 1.9. Covid testing negative. #Sepsis #Brucellosis bacteremia #Blood cultures, 01/0109/09/20: Brucella species #Diverticulitis #Asymptomatic bacteriuria Admit to [facility] Repeat blood cultures- NGTD Antibiotics with Zosyn and vancomycin- discontinue, start doxycycline and gentamicin. Need to rule out spine involvement and meningitis. Will d/w ID need for LP and spine imagining Follow-up urine culture Tylenol as needed for fevers IV fluids ID consult: CT abdomen pelvis, diverticulitis and splenic infarct, both likely related to brucellosis follow up CMV, EBV #Transaminitis likely due to brucellosis and fatty liver #Hypodense splenic lesions- likley due to brucellosis Continue to monitor LFTs- trending down GI consult: Hepatitis panel negative Abdominal ultrasound- fatty liver follow up cmv, ebv #Hyponatremia-likely hypovolemic, continue monitor. IVF #Hypokalemia- replace prn #New onset DM II hba1c 7.1 insulin prn for now Metformin on discharge patient counselled on weight loss VTE prophylaxis: Heparin Diet: Regular CODE STATUS: Full code I spent 42 minutes on this encounter. 25 minutes spent on counseling and care coordination. Plan of care discussed with patient ID physician and GI physician. Logan Chandra M.D. Sep 17, 2020 09:18
--- NOTE | 2020-09-17 09:27 | General Progress Note ---
Subjective ROS Limited/Unobtainable: Yes Allergies: Coded Allergies: No Known Allergies (Unverified , 02/17/15) Objective Last 24 Hour Vital Signs Date Time Temp Pulse Resp B/P (MAP) Pulse Ox O2 Delivery O2 Flow Rate FiO2 09/17/20 08:00 97.5 74 18 112/67 (82) 94 09/17/20 04:50 97.7 09/17/20 04:00 102.6 101 22 125/78 (94) 94 09/17/20 00:00 98.2 107 22 142/82 (102) 97 09/16/20 21:00 Room Air 09/16/20 20:14 72 18 94 Room Air 21 09/16/20 20:00 97.7 74 20 118/70 (86) 93 09/16/20 16:25 99.9 09/16/20 16:00 99.9 98 19 131/70 (90) 94 09/16/20 12:04 102 18 96 Room Air 21 98 18 93 09/16/20 12:00 98.1 92 20 155/88 (110) 91 Intake and Output 09/16/20 09/17/20 19:00 07:00 Intake Total 1656 ml 2580.000 ml Balance 1656 ml 2580.000 ml Intake Oral 480 ml IV Total 1656 ml 1500.000 ml Other 600 ml # Voids 2 Laboratory Tests 09/16/20 16:50: POC Whole Blood Glucose 150H 09/16/20 20:36: POC Whole Blood Glucose 111H 09/17/20 06:10: POC Whole Blood Glucose 125H 09/17/20 06:42: White Blood Count 4.8, Red Blood Count 3.81L, Hemoglobin 12.2, Hematocrit 33.4L, Mean Corpuscular Volume 88, Mean Corpuscular Hemoglobin 32.0H, Mean Corpuscular Hemoglobin Concent 36.5H, Red Cell Distribution Width 11.2L, Platelet Count 242, Mean Platelet Volume 5.7L, Neutrophils (%) (Auto) 61.8, Lymphocytes (%) (Auto) 28.6, Monocytes (%) (Auto) 8.1, Eosinophils (%) (Auto) 0.1, Basophils (%) (Auto) 1.4, Sodium Level 138, Potassium Level 3.1L, Chloride Level 105, Carbon Dioxide Level 24, Anion Gap 9, Blood Urea Nitrogen 3L, Creatinine 1.0, Estimat Glomerular Filtration Rate 56.8, Glucose Level 132H, Calcium Level 8.1L, Total Bilirubin 0.5, Aspartate Amino Transf (AST/SGOT) 123H, Alanine Aminotransferase (ALT/SGPT) 84H, Alkaline Phosphatase 103, Total Protein 6.2L, Albumin 2.3L, Globulin 3.9, Albumin/Globulin Ratio 0.6L, Vancomycin Level Trough 11.2 Height (Feet): 5 Height (Inches): 8.00 Weight (Pounds): 180 General Appearance: no apparent distress EENT: normal ENT inspection Neck: supple Cardiovascular: normal rate Respiratory/Chest: decreased breath sounds Abdomen: normal bowel sounds, non tender, soft Extremities: non-tender Assessment/Plan Problem List: (1) Transaminitis ICD Codes: R74.01 - Elevation of levels of liver transaminase levels SNOMED: 665211972, 321390024 (2) Bacteremia ICD Codes: R78.81 - Bacteremia SNOMED: 0678498 (3) Myalgia ICD Codes: M79.10 - Myalgia, unspecified site SNOMED: 64300047 (4) Fatigue ICD Codes: R53.83 - Other fatigue SNOMED: 54938601 Status: stable Assessment/Plan: elevated LFTS possibly due to sepsis and fatty liver abd us>>> reviewed repeat labs hepatitis panel>>> neg fu CMV and EBV CT reviewed ? diverticulitis on abx per ID needs out patient fu for colonoscopy in 8 weeks will fu Louis Gerard MD Sep 17, 2020 09:27
[2020-09-17] MEDS: guaiFENesin 100mg/5ml Liq ud ORAL PRN ×2 (12:08→22:35)
[2020-09-17] MEDS ORDERED: Vancomycin 1gm/D5W 275ml IVPB SCH ×2 (20:00)
[2020-09-17] MEDS: Gentamicin inj 360 MG in NS 110 ML IVPB SCH (20:16)
[2020-09-17] MEDS: Enoxaparin 40mg Inj SUBQ SCH (20:19)
--- NOTE | 2020-09-17 21:26 | Infectious Diseases Prog Note ---
Assessment/Plan Assessment/Plan ASSESSMENT AND PLAN: 1. 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 uti, ? diverticulitis d/w microbiology - called me with + brucella species on 09/09/20 blood cultures from ER visit at [facility] - iv doxycycline and iv gentamicin started - day # 1 - monitor temps - surveillance blood cultures - monitor labs - d/w Dr. Chandra - d/w family who translated for me at the bedside - communicated with ICP and d/w microbiology 2. No other significant past medical history. 3. Elevated LFTs and abdominal pain. GI is following. 4. COVID testing is negative. 5. IV fluids. 6. Case discussed with Dr. Chandra. 7. No known allergies. 8. Social history negative. 9. Family history noncontributory. 10. MAR was noted and reviewed 11. No known drug allergies. 12. Case was discussed with RN. 13. Case was discussed with Dr. Chandra. Subjective Constitutional: Reports: fever, fatigue HEENT: Denies: congestion Respiratory: Denies: shortness of breath Cardiovascular: Denies: chest pain Gastrointestinal/Abdominal: Denies: nausea, vomiting, diarrhea Genitourinary: Reports: other - no mohan, no urinary symptoms Neurologic: Denies: headache Psychiatric: Denies: depression Skin: Denies: rash Hematologic: Denies: bleeding Musculoskeletal: Denies: pain Allergies: Coded Allergies: No Known Allergies (Unverified , 02/17/15) Objective Last 24 Hour Vital Signs Date Time Temp Pulse Resp B/P (MAP) Pulse Ox O2 Delivery O2 Flow Rate FiO2 09/17/20 20:00 96.8 81 18 120/69 (86) 92 09/17/20 16:59 99.7 09/17/20 16:50 99.7 90 19 115/69 (84) 96 09/17/20 16:00 101.8 104 22 146/77 (100) 97 09/17/20 12:00 96.1 87 20 122/80 (94) 96 09/17/20 09:00 Room Air 09/17/20 08:00 97.5 74 18 112/67 (82) 94 09/17/20 04:50 97.7 09/17/20 04:00 102.6 101 22 125/78 (94) 94 09/17/20 00:00 98.2 107 22 142/82 (102 97 Height (Feet): 5 Height (Inches): 8.00 Weight (Pounds): 180 General Appearance: no acute distress HEENT: normocephalic, atraumatic, anicteric, mucous membranes moist Respiratory/Chest: lungs clear, normal breath sounds, no respiratory distress, no accessory muscle use Cardiovascular: normal rate, regular rhythm, no gallop/murmur, no JVD Abdomen: normal bowel sounds, soft, non tender, no organomegaly, non distended Genitourinary: other - no mohan Extremities: no cyanosis Skin: no rash 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 Inferior splenic 2 cm and mid anterior splenic 1.6 x 0.2 cm hypodensities could represent splenic infarcts. 2. Minimal sigmoid colon wall thickening with possible minimal adjacent fat stranding is probably incidental, but could in the proper context represent minimal acute uncomplicated diverticulitis. 3. Otherwise no acute abnormality identified to account for patient presentation. TTE: <Conclusion> Technically difficulty study due to poor parasternal acoustical windows and pt's breathing. Normal left ventricular chamber size, systolic function and wall motion. Left ventricular ejection fraction estimated to be 60-65 %. No evidence of left ventricular hypertrophy. Small pericardial effusion along the free wall of RV. All other cardiac chamber sizes are within normal limits. Focal aortic valve sclerosis with adequate cusp excursion. Thickened mitral valve leaflets with normal excursion. Mitral annulus and aortic root calcification. Pulmonic valve not well visualized. Normal tricuspid valve structure. IVC at normal size with physiologic collapse. No discrete vegetations seen, however SBE may not be excluded by transthoracic 2-D echo. A color flow and spectral Doppler study was performed and revealed: No aortic regurgitation. Trace mitral regurgitation. Mitral inflow indicates normal left ventricular diastolic function. Trace tricuspid regurgitation. Tricuspid systolic velocities suggests peak right ventricular systolic pressure of 30 mmHg. No pulmonic regurgitation present. Chest x-ray - Procedure: XRAY Chest 1v Indication: Cough Technique: One view of the chest Comparison: 09/09/2020 Findings: Lungs and pleural spaces are clear. Heart size is normal. Impression: No acute process Microbiology Date/Time Source Procedure Growth Status 09/17/20 12:35 Nasopharynx SARS-CoV-2 RdRp Gene Assay - Final Complete 09/13/20 16:40 Urine,Clean Catch Urine Culture - Final NO GROWTH AFTER 48 HOURS Complete 09/13/20 16:40 Blood Blood Culture - Preliminary Resulted Microbiology Date/Time Source Procedure Growth Status 09/17/20 12:35 Nasopharynx SARS-CoV-2 RdRp Gene Assay - Final Complete Laboratory Tests Test 09/17/20 06:10 09/17/20 06:42 POC Whole Blood Glucose 125 MG/DL (74-106) H White Blood Count 4.8 K/UL (4.8-10.8) Red Blood Count 3.81 M/UL (4.20-5.40) L Hemoglobin 12.2 G/DL (12.0-16.0) Hematocrit 33.4 % (37.0-47.0) L Mean Corpuscular Volume 88 FL (80-99) Mean Corpuscular Hemoglobin 32.0 PG (27.0-31.0) H Mean Corpuscular Hemoglobin Concent 36.5 G/DL (32.0-36.0) H Red Cell Distribution Width 11.2 % (11.6-14.8) L Platelet Count 242 K/UL (150-450) Mean Platelet Volume 5.7 FL (6.5-10.1) L Neutrophils (%) (Auto) 61.8 % (45.0-75.0) Lymphocytes (%) (Auto) 28.6 % (20.0-45.0) Monocytes (%) (Auto) 8.1 % (1.0-10.0) Eosinophils (%) (Auto) 0.1 % (0.0-3.0) Basophils (%) (Auto) 1.4 % (0.0-2.0) Sodium Level 138 MMOL/L (136-145) Potassium Level 3.1 MMOL/L (3.5-5.1) L Chloride Level 105 MMOL/L (98-107) Carbon Dioxide Level 24 MMOL/L (21-32) Anion Gap 9 mmol/L (5-15) Blood Urea Nitrogen 3 mg/dL (7-18) L Creatinine 1.0 MG/DL (0.55-1.30) Estimat Glomerular Filtration Rate 56.8 mL/min (>60) Glucose Level 132 MG/DL (74-106) H Calcium Level 8.1 MG/DL (8.5-10.1) L Total Bilirubin 0.5 MG/DL (0.2-1.0) Aspartate Amino Transf (AST/SGOT) 123 U/L (15-37) H Alanine Aminotransferase (ALT/SGPT) 84 U/L (12-78) H Alkaline Phosphatase 103 U/L (46-116) Total Protein 6.2 G/DL (6.4-8.2) L Albumin 2.3 G/DL (3.4-5.0) L Globulin 3.9 g/dL Albumin/Globulin Ratio 0.6 (1.0-2.7) L Vancomycin Level Trough 11.2 ug/mL (5.0-12.0) Current Medications Medications (Trade) Dose Ordered Sig/Ghassan Route PRN Reason Start Time Stop Time Status Last Admin Dose Admin Acetaminophen (Tylenol) 650 mg Q4H PRN ORAL Mild Pain (Pain Scale 1-3) 09/13/20 18:00 10/13/20 17:59 09/16/20 15:55 Acetaminophen (Tylenol) 650 mg Q4H PRN ORAL FEVER 09/14/20 10:15 10/14/20 10:14 09/17/20 16:29 Al Hydroxide/Mg Hydroxide (Mylanta II) 30 ml Q6H PRN ORAL dyspepsia 09/13/20 18:00 10/13/20 17:59 Albuterol/ Ipratropium (Albuterol/ Ipratropium) 3 ml TIDPRN PRN HHN Shortness of Breath 09/13/20 18:00 09/18/20 17:59 09/16/20 12:03 Dextrose (Dextrose 50%) 25 ml Q30M PRN IV Hypoglycemia 09/16/20 12:30 12/15/20 12:29 Dextrose (Dextrose 50%) 50 ml Q30M PRN IV Hypoglycemia 09/16/20 12:30 12/15/20 12:29 Diphenhydramine HCl (Benadryl) 25 mg Q6H PRN ORAL Itching/Pruritis 09/13/20 18:00 10/13/20 17:59 Doxycycline Hyclate 100 mg/ Dextrose 110 ml @ 110 mls/hr Q12HR IV 09/17/20 21:00 09/24/20 20:59 Enoxaparin Sodium (Lovenox) 40 mg Q24H SUBQ 09/13/20 21:00 12/12/20 20:59 09/17/20 20:19 Gentamicin Protocol (Gentamicin pharmacy to dose) 1 ea DAILY PRN MISC per rx protocol 09/18/20 09:00 10/18/20 08:59 Gentamicin Sulfate 360 mg/ Sodium Chloride 119 ml @ 119 mls/hr Q24H IVPB 09/17/20 20:00 09/24/20 19:59 09/17/20 20:16 Guaifenesin (Robitussin) 100 mg Q4H PRN ORAL For Cough 09/16/20 13:30 12/15/20 13:29 09/17/20 12:08 Hydromorphone HCl (Dilaudid) 0.5 mg Q6H PRN IVP Moderate Pain (Pain Scale 4-6) 09/13/20 18:00 09/20/20 17:59 Hydromorphone HCl (Dilaudid) 2 mg Q6H PRN IVP Severe Pain (Pain Scale 7-10) 09/13/20 18:00 09/20/20 17:59 09/15/20 08:06 Insulin Aspart (NovoLOG) BEFORE MEALS AND HS SUBQ 09/16/20 16:30 12/15/20 16:29 09/16/20 17:08 Magnesium Hydroxide (Mom) 30 ml HSPRN PRN ORAL Constipation 09/13/20 18:00 10/13/20 17:59 Nitroglycerin (Ntg) 0.4 mg Q5M X 3 DOSES PRN SL Prn Chest Pain 09/13/20 18:00 10/13/20 17:59 Ondansetron HCl (Zofran) 4 mg Q4H PRN IVP Nausea & Vomiting 09/15/20 17:26 10/15/20 17:25 Potassium Chloride/Sodium Chloride 1,000 ml @ 100 mls/hr Q10H IV 09/15/20 19:00 10/15/20 18:59 09/17/20 20:17 Kaur Mazariegos MD Sep 17, 2020 21:26
[2020-09-17] MEDS: Doxycycline Hyclate 100 MG in D5W 110 ML IV SCH (21:53)
[2020-09-18] VITALS: BP 144/79
[2020-09-18 04:00] VITALS: BP 145/82
[2020-09-18] MEDS: NS w/KCl 20mEq 1000ml 1,000 ML IV SCH ×2 (05:01→22:05)
[2020-09-18] MEDS: NovoLOG Insulin Flexpen SUBQ SCH ×4 (05:39→20:03)
--- NOTE | 2020-09-18 06:47 | General Progress Note ---
Subjective ROS Limited/Unobtainable: Yes Allergies: Coded Allergies: No Known Allergies (Unverified , 02/17/15) Objective Last 24 Hour Vital Signs Date Time Temp Pulse Resp B/P (MAP) Pulse Ox O2 Delivery O2 Flow Rate FiO2 09/18/20 04:13 98.2 09/18/20 04:00 102.9 107 20 145/82 (103) 93 09/18/20 00:00 97.1 87 18 144/79 (100) 98 09/17/20 21:00 Room Air 09/17/20 20:00 96.8 81 18 120/69 (86) 92 09/17/20 16:59 99.7 09/17/20 16:50 99.7 90 19 115/69 (84) 96 09/17/20 16:00 101.8 104 22 146/77 (100) 97 09/17/20 12:00 96.1 87 20 122/80 (94) 96 09/17/20 09:00 Room Air 09/17/20 08:00 97.5 74 18 112/67 (82) 94 Intake and Output 09/17/20 09/18/20 19:00 07:00 Intake Total 400 ml 1260 ml Balance 400 ml 1260 ml Intake Oral 400 ml 360 ml IV Total 900 ml # Voids 1 3 Laboratory Tests 09/18/20 05:30: POC Whole Blood Glucose 115H Height (Feet): 5 Height (Inches): 8.00 Weight (Pounds): 180 General Appearance: alert EENT: normal ENT inspection Neck: supple Cardiovascular: normal rate Respiratory/Chest: lungs clear Abdomen: normal bowel sounds, non tender, soft Extremities: non-tender Assessment/Plan Problem List: (1) Transaminitis ICD Codes: R74.01 - Elevation of levels of liver transaminase levels SNOMED: 505085198, 658561008 (2) Bacteremia ICD Codes: R78.81 - Bacteremia SNOMED: 5455378 (3) Myalgia ICD Codes: M79.10 - Myalgia, unspecified site SNOMED: 45143004 (4) Fatigue ICD Codes: R53.83 - Other fatigue SNOMED: 95453805 Status: stable Assessment/Plan: elevated LFTS possibly due to sepsis and fatty liver abd us>>> reviewed repeat labs hepatitis panel>>> neg fu CMV and EBV positive blood cultures for Brucella fu ID recs on abx per ID needs out patient fu for colonoscopy in 8 weeks will fu Louis Gerard MD Sep 18, 2020 06:47
[2020-09-18 08:00] VITALS: BP 125/81
[2020-09-18] MEDS: Doxycycline Hyclate 100 MG in D5W 110 ML IV SCH ×2 (08:19→22:04)
[2020-09-18] MEDS ORDERED: Gentamicin Rx monitoring MISC PRN (09:00)
[2020-09-18 09:26] LABS: EOSINOPHILS % (AUTO) 0.2 % (0.0-3.0); HEMATOCRIT 35.2 % (37.0-47.0); HEMOGLOBIN 12.5 G/DL (12.0-16.0); LYMPHOCYTES % (AUTO) 29.3 % (20.0-45.0); MEAN CORPUSCULAR VOLUME 88 FL (80-99); MONOCYTES % (AUTO) 7.8 % (1.0-10.0); NEUTROPHILS % (AUTO) 61.7 % (45.0-75.0); PLATELET COUNT 260 K/UL (150-450); RED CELL DISTRIBUTION WIDTH 11.3 % (11.6-14.8); WHITE BLOOD COUNT 4.7 K/UL (4.8-10.8)
[2020-09-18 09:49] LABS: ALANINE AMINOTRANSFERASE 102 U/L (12-78); ALBUMIN 2.5 G/DL (3.4-5.0); ALBUMIN/GLOBULIN RATIO 0.6 (1.0-2.7); ALKALINE PHOSPHATASE 114 U/L (46-116); ANION GAP 8 mmol/L (5-15); ASPARTATE AMINO TRANSFERASE 128 U/L (15-37); BILIRUBIN,TOTAL 0.5 MG/DL (0.2-1.0); BLOOD UREA NITROGEN 5 mg/dL (7-18); CALCIUM 8.1 MG/DL (8.5-10.1); CARBON DIOXIDE 25 MMOL/L (21-32); CHLORIDE 104 MMOL/L (98-107); CREATININE 0.9 MG/DL (0.55-1.30); POTASSIUM 3.4 MMOL/L (3.5-5.1); SODIUM 137 MMOL/L (136-145)
--- NOTE | 2020-09-18 11:11 | General Progress Note ---
Subjective Constitutional: Reports: fever; Denies: no symptoms, chills, diaphoresis, malaise, weakness, other HEENT: Denies: no symptoms, eye pain, blurred vision, tearing, double vision, ear pain, ear discharge, nose pain, nose congestion, throat pain, throat swelling, mouth pain, mouth swelling, other Cardiovascular: Denies: no symptoms, chest pain, edema, irregular heart rate, lightheadedness, palpitations, syncope, other Respiratory: Denies: no symptoms, cough, orthopnea, shortness of breath, SOB with excertion, SOB at rest, sputum, stridor, wheezing, other Gastrointestinal/Abdominal: Denies: no symptoms, abdomen distended, abdominal pain, black stools, tarry stools, blood in stool, constipated, diarrhea, difficulty swallowing, nausea, poor appetite, poor fluid intake, rectal bleeding, vomiting, other Genitourinary: Denies: no symptoms, burning, discharge, frequency, flank pain, hematuria, incontinence, pain, urgency, other Neurologic/Psychiatric: Denies: no symptoms, anxiety, depressed, emotional problems, headache, numbness, paresthesia, pre-existing deficit, seizure, ti ngling, tremors, weakness, other Endocrine: Denies: no symptoms, excessive sweating, flushing, intolerance to cold, intolerance to heat, increased hunger, increased thirst, increased urine, unexplained weight gain, unexplained weight loss, other Hematologic/Lymphatic: Denies: no symptoms, anemia, easy bleeding, easy bruising, other Allergies: Coded Allergies: No Known Allergies (Unverified , 02/17/15) Subjective no acute events overnight. Patient feels well but did have fever. No headaches, vision changes, back pain. Ambulating ok. Objective Last 24 Hour Vital Signs Date Time Temp Pulse Resp B/P (MAP) Pulse Ox O2 Delivery O2 Flow Rate FiO2 09/18/20 09:00 Room Air 09/18/20 08:00 97.9 77 20 125/81 (96) 95 09/18/20 04:13 98.2 09/18/20 04:00 102.9 107 20 145/82 (103) 93 09/18/20 00:00 97.1 87 18 144/79 (100) 98 09/17/20 21:00 Room Air 09/17/20 20:00 96.8 81 18 120/69 (86) 92 09/17/20 16:59 99.7 09/17/20 16:50 99.7 90 19 115/69 (84) 96 09/17/20 16:00 101.8 104 22 146/77 (100) 97 09/17/20 12:00 96.1 87 20 122/80 (94) 96 Intake and Output 09/17/20 09/18/20 19:00 07:00 Intake Total 400 ml 1260 ml Balance 400 ml 1260 ml Intake Oral 400 ml 360 ml IV Total 900 ml # Voids 1 3 Laboratory Tests 09/18/20 05:30: POC Whole Blood Glucose 115H 09/18/20 08:00: White Blood Count 4.7L, Red Blood Count 4.00L, Hemoglobin 12.5, Hematocrit 35.2L , Mean Corpuscular Volume 88, Mean Corpuscular Hemoglobin 31.3H, Mean Corpuscular Hemoglobin Concent 35.5, Red Cell Distribution Width 11.3L, Platelet Count 260, Mean Platelet Volume 4.6L, Neutrophils (%) (Auto) 61.7, Lymphocytes (%) (Auto) 29.3, Monocytes (%) (Auto) 7.8, Eosinophils (%) (Auto) 0.2, Basophils (%) (Auto) 1.0, Sodium Level 137, Potassium Level 3.4L, Chloride Level 104, Carbon Dioxide Level 25, Anion Gap 8, Blood Urea Nitrogen 5L, Creatinine 0.9, Estimat Glomerular Filtration Rate > 60, Glucose Level 109H, Calcium Level 8.1L, Total Bilirubin 0.5, Aspartate Amino Transf (AST/SGOT) 128H, Alanine Aminotransferase (ALT/SGPT) 102H, Alkaline Phosphatase 114, Total Protein 7.0, Albumin 2.5L, Globulin 4.5, Albumin/Globulin Ratio 0.6L, Random Gentamicin Level [Pending] Height (Feet): 5 Height (Inches): 8.00 Weight (Pounds): 180 General Appearance: no apparent distress, alert oriented x3 EENT: PERRL/EOMI, TMs normal Neck: non-tender, supple Cardiovascular: normal rate, regular rhythm, regularly irregular Respiratory/Chest: lungs clear, normal breath sounds, no respiratory distress Abdomen: normal bowel sounds, non tender, soft Extremities: normal range of motion, non-tender Edema: no edema noted Arm (L), no edema noted Arm (R), no edema noted Leg (L), no edema noted Leg (R), no edema noted Pedal (L), no edema noted Pedal (R), no edema noted Generalized Neurologic: glass inserter II-XII grossly normal, oriented x 3 Assessment/Plan Status: stable Assessment/Plan: Previously healthy 60-year-old female presents to the hospital with undulant fevers, chills, diaphoresis and myalgias. She has blood cultures 2 out of 2 bottles that are growing staph epidermidis and likely contaminant patient has no history of central lines. Her UA looks infected, urine culture sent. She has no leukocytosis, T-max 102, lactate 1.9. Covid testing negative. 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 monitor signs for meningitis, sacroiliitis Follow-up urine culture Tylenol as needed for fevers IV fluids ID consult: CT abdomen pelvis, diverticulitis and splenic infarct, both likely related to brucellosis follow up CMV, EBV Consider MARY if persistant fevers #Transaminitis likely due to brucellosis and fatty liver #Hypodense splenic lesions- likley due to brucellosis Continue to monitor LFTs- trending down GI consult: Hepatitis panel negative Abdominal ultrasound- fatty liver follow up cmv, ebv #Hyponatremia-likely hypovolemic, continue monitor. IVF #Hypokalemia- replace prn #New onset DM II hba1c 7.1 insulin prn for now Metformin on discharge patient counselled on weight loss VTE prophylaxis: Heparin Diet: Regular CODE STATUS: Full code I spent 41 minutes on this encounter. 27 minutes spent on counseling and care coordination. Plan of care discussed with patient ID physician and GI physician. Oz Christy D.O Sep 18, 2020 11:11
--- NOTE | 2020-09-18 11:59 | Infectious Diseases Prog Note ---
Assessment/Plan Assessment/Plan ASSESSMENT AND PLAN: 1. brucella species bacteremia/Brucellosis, sepsis, fevers, clinical evaluator likely contaminant, ? uti, ? diverticulitis d/w microbiology - called me with + brucella species on 09/09/20 blood cultures from ER visit at [facility] - iv doxycycline and iv gentamicin started - day # 2 - monitor temps - surveillance blood cultures - monitor labs - d/w Dr. Chandra - d/w family who translated for me at the bedside - communicated with ICP and d/w microbiology - no obvious clinical meningitis or musculoskeletal pain on exam, has had occasional headache - TTE - no obvious vegetations 2. No other significant past medical history. 3. Elevated LFTs and abdominal pain. GI is following. 4. COVID testing is negative. 5. IV fluids. 6. Case discussed with Dr. Chandra. 7. No known allergies. 8. Social history negative. 9. Family history noncontributory. 10. MAR was noted and reviewed 11. No known drug allergies. 12. Case was discussed with RN. 13. Case was discussed with Dr. Chandra. Subjective Constitutional: Reports: fever, fatigue, other - no sig headache or neck stiffness, no loss of vision HEENT: Denies: congestion Respiratory: Denies: shortness of breath Cardiovascular: Denies: chest pain Gastrointestinal/Abdominal: Denies: nausea, vomiting Neurologic: Denies: headache Musculoskeletal: Reports: other - no joint pain Allergies: Coded Allergies: No Known Allergies (Unverified , 02/17/15) Objective Last 24 Hour Vital Signs Date Time Temp Pulse Resp B/P (MAP) Pulse Ox O2 Delivery O2 Flow Rate FiO2 09/18/20 09:00 Room Air 09/18/20 08:00 97.9 77 20 125/81 (96) 95 09/18/20 04:13 98.2 09/18/20 04:00 102.9 107 20 145/82 (103) 93 09/18/20 00:00 97.1 87 18 144/79 (100) 98 09/17/20 21:00 Room Air 09/17/20 20:00 96.8 81 18 120/69 (86) 92 09/17/20 16:59 99.7 09/17/20 16:50 99.7 90 19 115/69 (84) 96 09/17/20 16:00 101.8 104 22 146/77 (100) 97 09/17/20 12:00 96.1 87 20 122/80 (94) 96 Height (Feet): 5 Height (Inches): 8.00 Weight (Pounds): 180 General Appearance: no acute distress HEENT: normocephalic, atraumatic, anicteric, mucous membranes moist, EOMI, supple, no JVD Respiratory/Chest: lungs clear, normal breath sounds, no respiratory distress Cardiovascular: normal rate, regular rhythm Abdomen: normal bowel sounds, soft, non tender, no organomegaly Extremities: no cyanosis Skin: no rash CT abdomen and pelvis: IMPRESSION: 1. Inferior splenic 2 cm and mid anterior splenic 1.6 x 0.2 cm hypodensities could represent splenic infarcts. 2. Minimal sigmoid colon wall thickening with possible minimal adjacent fat stranding is probably incidental, but could in the proper context represent minimal acute uncomplicated diverticulitis. 3. Otherwise no acute abnormality identified to account for patient presentation. TTE: <Conclusion> Technically difficulty study due to poor parasternal acoustical windows and pt's breathing. Normal left ventricular chamber size, systolic function and wall motion. Left ventricular ejection fraction estimated to be 60-65 %. No evidence of left ventricular hypertrophy. Small pericardial effusion along the free wall of RV. All other cardiac chamber sizes are within normal limits. Focal aortic valve sclerosis with adequate cusp excursion. Thickened mitral valve leaflets with normal excursion. Mitral annulus and aortic root calcification. Pulmonic valve not well visualized. Normal tricuspid valve structure. IVC at normal size with physiologic collapse. No discrete vegetations seen, however SBE may not be excluded by transthoracic 2-D echo. A color flow and spectral Doppler study was performed and revealed: No aortic regurgitation. Trace mitral regurgitation. Mitral inflow indicates normal left ventricular diastolic function. Trace tricuspid regurgitation. Tricuspid systolic velocities suggests peak right ventricular systolic pressure of 30 mmHg. No pulmonic regurgitation present. Chest x-ray - Procedure: XRAY Chest 1v Indication: Cough Technique: One view of the chest Comparison: 09/09/2020 Findings: Lungs and pleural spaces are clear. Heart size is normal. Impression: No acute process Microbiology Date/Time Source Procedure Growth Status 09/17/20 12:35 Nasopharynx SARS-CoV-2 RdRp Gene Assay - Final Complete Laboratory Tests Test 09/18/20 05:30 09/18/20 08:00 09/18/20 11:36 POC Whole Blood Glucose 115 MG/DL (74-106) H 119 MG/DL (74-106) H White Blood Count 4.7 K/UL (4.8-10.8) L Red Blood Count 4.00 M/UL (4.20-5.40) L Hemoglobin 12.5 G/DL (12.0-16.0) Hematocrit 35.2 % (37.0-47.0) L Mean Corpuscular Volume 88 FL (80-99) Mean Corpuscular Hemoglobin 31.3 PG (27.0-31.0) H Mean Corpuscular Hemoglobin Concent 35.5 G/DL (32.0-36.0) Red Cell Distribution Width 11.3 % (11.6-14.8) L Platelet Count 260 K/UL (150-450) Mean Platelet Volume 4.6 FL (6.5-10.1) L Neutrophils (%) (Auto) 61.7 % (45.0-75.0) Lymphocytes (%) (Auto) 29.3 % (20.0-45.0) Monocytes (%) (Auto) 7.8 % (1.0-10.0) Eosinophils (%) (Auto) 0.2 % (0.0-3.0) Basophils (%) (Auto) 1.0 % (0.0-2.0) Sodium Level 137 MMOL/L (136-145) Potassium Level 3.4 MMOL/L (3.5-5.1) L Chloride Level 104 MMOL/L (98-107) Carbon Dioxide Level 25 MMOL/L (21-32) Anion Gap 8 mmol/L (5-15) Blood Urea Nitrogen 5 mg/dL (7-18) L Creatinine 0.9 MG/DL (0.55-1.30) Estimat Glomerular Filtration Rate > 60 mL/min (>60) Glucose Level 109 MG/DL (74-106) H Calcium Level 8.1 MG/DL (8.5-10.1) L Total Bilirubin 0.5 MG/DL (0.2-1.0) Aspartate Amino Transf (AST/SGOT) 128 U/L (15-37) H Alanine Aminotransferase (ALT/SGPT) 102 U/L (12-78) H Alkaline Phosphatase 114 U/L (46-116) Total Protein 7.0 G/DL (6.4-8.2) Albumin 2.5 G/DL (3.4-5.0) L Globulin 4.5 g/dL Albumin/Globulin Ratio 0.6 (1.0-2.7) L Random Gentamicin Level 0.7 ug/mL Current Medications Medications (Trade) Dose Ordered Sig/Ghassan Route PRN Reason Start Time Stop Time Status Last Admin Dose Admin Acetaminophen (Tylenol) 650 mg Q4H PRN ORAL Mild Pain (Pain Scale 1-3) 09/13/20 18:00 10/13/20 17:59 09/18/20 03:43 Acetaminophen (Tylenol) 650 mg Q4H PRN ORAL FEVER 09/14/20 10:15 10/14/20 10:14 09/17/20 16:29 Al Hydroxide/Mg Hydroxide (Mylanta II) 30 ml Q6H PRN ORAL dyspepsia 09/13/20 18:00 10/13/20 17:59 Albuterol/ Ipratropium (Albuterol/ Ipratropium) 3 ml TIDPRN PRN HHN Shortness of Breath 09/13/20 18:00 09/18/20 17:59 09/16/20 12:03 Dextrose (Dextrose 50%) 25 ml Q30M PRN IV Hypoglycemia 09/16/20 12:30 12/15/20 12:29 Dextrose (Dextrose 50%) 50 ml Q30M PRN IV Hypoglycemia 09/16/20 12:30 12/15/20 12:29 Diphenhydramine HCl (Benadryl) 25 mg Q6H PRN ORAL Itching/Pruritis 09/13/20 18:00 10/13/20 17:59 Doxycycline Hyclate 100 mg/ Dextrose 110 ml @ 110 mls/hr Q12HR IV 09/17/20 21:00 09/24/20 20:59 09/18/20 08:19 Enoxaparin Sodium (Lovenox) 40 mg Q24H SUBQ 09/13/20 21:00 12/12/20 20:59 09/17/20 20:19 Gentamicin Protocol (Gentamicin pharmacy to dose) 1 ea DAILY PRN MISC per rx protocol 09/18/20 09:00 10/18/20 08:59 Gentamicin Sulfate 360 mg/ Sodium Chloride 119 ml @ 119 mls/hr Q24H IVPB 09/17/20 20:00 09/24/20 19:59 09/17/20 20:16 Guaifenesin (Robitussin) 100 mg Q4H PRN ORAL For Cough 09/16/20 13:30 12/15/20 13:29 09/17/20 22:35 Hydromorphone HCl (Dilaudid) 0.5 mg Q6H PRN IVP Moderate Pain (Pain Scale 4-6) 09/13/20 18:00 09/20/20 17:59 Hydromorphone HCl (Dilaudid) 2 mg Q6H PRN IVP Severe Pain (Pain Scale 7-10) 09/13/20 18:00 09/20/20 17:59 09/15/20 08:06 Insulin Aspart (NovoLOG) BEFORE MEALS AND HS SUBQ 09/16/20 16:30 12/15/20 16:29 09/16/20 17:08 Magnesium Hydroxide (Mom) 30 ml HSPRN PRN ORAL Constipation 09/13/20 18:00 10/13/20 17:59 Nitroglycerin (Ntg) 0.4 mg Q5M X 3 DOSES PRN SL Prn Chest Pain 09/13/20 18:00 10/13/20 17:59 Ondansetron HCl (Zofran) 4 mg Q4H PRN IVP Nausea & Vomiting 09/15/20 17:26 10/15/20 17:25 Potassium Chloride/Sodium Chloride 1,000 ml @ 50 mls/hr Q20H IV 09/15/20 19:00 10/15/20 18:59 09/18/20 05:01 Kaur Mazariegos MD Sep 18, 2020 11:59
[2020-09-18 12:00] VITALS: BP 144/96
[2020-09-18] MEDS: guaiFENesin 100mg/5ml Liq ud ORAL PRN ×2 (12:33→20:09)
[2020-09-18] MEDS ORDERED: HydrALAZINE 25mg tab ORAL PRN (14:30)
[2020-09-18] MEDS ORDERED: Benzonatate 100mg Perles ORAL PRN (14:30)
[2020-09-18 16:00] VITALS: BP 136/78
[2020-09-18 20:00] VITALS: BP 142/88
[2020-09-18] MEDS: Gentamicin inj 360 MG in NS 110 ML IVPB SCH (20:08)
[2020-09-18] MEDS: Enoxaparin 40mg Inj SUBQ SCH (20:09)
[2020-09-19] VITALS: BP 124/74
[2020-09-19] MEDS: guaiFENesin 100mg/5ml Liq ud ORAL PRN ×4 (00:20→23:18)
[2020-09-19 04:00] VITALS: BP 102/69
[2020-09-19] MEDS: NovoLOG Insulin Flexpen SUBQ SCH ×4 (05:34→20:45)
[2020-09-19 07:21] LABS: BASOPHILS % (AUTO) 0.4 % (0.0-2.0); HEMATOCRIT 41.4 % (37.0-47.0); LYMPHOCYTES % (AUTO) 27.7 % (20.0-45.0); MEAN CORPUSCULAR VOLUME 97 FL (80-99); MONOCYTES % (AUTO) 5.5 % (1.0-10.0); NEUTROPHILS % (AUTO) 66.4 % (45.0-75.0); PLATELET COUNT 287 K/UL (150-450); RED BLOOD COUNT 4.25 M/UL (4.20-5.40); WHITE BLOOD COUNT 7.5 K/UL (4.8-10.8)
[2020-09-19 07:46] LABS: ALBUMIN 2.9 G/DL (3.4-5.0); ALBUMIN/GLOBULIN RATIO 0.6 (1.0-2.7); BILIRUBIN,TOTAL 0.6 MG/DL (0.2-1.0); CALCIUM 8.8 MG/DL (8.5-10.1)
[2020-09-19 08:00] VITALS: BP 136/75
[2020-09-19] MEDS: Doxycycline Hyclate 100 MG in D5W 110 ML IV SCH ×2 (08:14→20:57)
--- NOTE | 2020-09-19 10:10 | General Progress Note ---
Subjective ROS Limited/Unobtainable: Yes Allergies: Coded Allergies: No Known Allergies (Unverified , 02/17/15) Objective Last 24 Hour Vital Signs Date Time Temp Pulse Resp B/P (MAP) Pulse Ox O2 Delivery O2 Flow Rate FiO2 09/19/20 08:00 103.1 111 20 136/75 (95) 94 09/19/20 04:00 98.1 85 20 102/69 (80) 96 09/19/20 00:48 98.8 09/19/20 00:00 102.4 99 20 124/74 (91) 94 09/18/20 21:00 Room Air 09/18/20 20:00 99.9 88 18 142/88 (106) 96 09/18/20 16:00 99.9 94 20 136/78 (97) 95 09/18/20 14:41 97.7 09/18/20 12:00 97.7 94 20 144/96 (112) 95 Intake and Output 09/18/20 09/19/20 19:00 07:00 Intake Total 1390 ml 350 ml Balance 1390 ml 350 ml Intake Oral 480 ml IV Total 910 ml 350 ml # Voids 2 # Bowel Movements 1 1 Laboratory Tests 09/18/20 11:36: POC Whole Blood Glucose 119H 09/19/20 05:03: POC Whole Blood Glucose 115H 09/19/20 05:30: White Blood Count 7.5#, Red Blood Count 4.25, Hemoglobin 14.0, Hematocrit 41.4, Mean Corpuscular Volume 97#, Mean Corpuscular Hemoglobin 32.8H, Mean Corpuscular Hemoglobin Concent 33.7, Red Cell Distribution Width 12.0, Platelet Count 287, Mean Platelet Volume 4.8L, Neutrophils (%) (Auto) 66.4, Lymphocytes (%) (Auto) 27.7, Monocytes (%) (Auto) 5.5, Eosinophils (%) (Auto) 0.0, Basophils (%) (Auto) 0.4, Sodium Level 136, Potassium Level 4.0, Chloride Level 102, Carbon Dioxide Level 23, Anion Gap 11, Blood Urea Nitrogen 3L, Creatinine 1.0, Estimat Glomerular Filtration Rate 56.8, Glucose Level 112H, Calcium Level 8.8, Phosphorus Level 4.0, Magnesium Level 1.9, Total Bilirubin 0.6, Aspartate Amino Transf (AST/SGOT) 157H, Alanine Aminotransferase (ALT/SGPT) 118H, Alkaline Phosphatase 144H, Total Protein 7.4, Albumin 2.9L, Globulin 4.5, Albumin/Globulin Ratio 0.6L Height (Feet): 5 Height (Inches): 8.00 Weight (Pounds): 180 General Appearance: alert EENT: normal ENT inspection Neck: supple Cardiovascular: normal rate Respiratory/Chest: decreased breath sounds Abdomen: hypoactive bowel sounds Extremities: non-tender Assessment/Plan Problem List: (1) Transaminitis ICD Codes: R74.01 - Elevation of levels of liver transaminase levels SNOMED: 241078336, 529307703 (2) Bacteremia ICD Codes: R78.81 - Bacteremia SNOMED: 2024180 (3) Myalgia ICD Codes: M79.10 - Myalgia, unspecified site SNOMED: 29484234 (4) Fatigue ICD Codes: R53.83 - Other fatigue SNOMED: 93595710 Status: stable Assessment/Plan: elevated LFTS possibly due to sepsis and fatty liver abd us>>> reviewed repeat labs hepatitis panel>>> neg fu CMV and EBV>>>> neg positive blood cultures for Brucella fu ID recs on abx per ID needs out patient fu for colonoscopy in 8 weeks will fu Louis Gerard MD Sep 19, 2020 10:10
--- NOTE | 2020-09-19 10:29 | General Progress Note ---
Subjective Constitutional: Reports: fever; Denies: no symptoms, chills, diaphoresis, malaise, weakness, other HEENT: Denies: no symptoms, eye pain, blurred vision, tearing, double vision, ear pain, ear discharge, nose pain, nose congestion, throat pain, throat swelling, mouth pain, mouth swelling, other Cardiovascular: Denies: no symptoms, chest pain, edema, irregular heart rate, lightheadedness, palpitations, syncope, other Respiratory: Denies: no symptoms, cough, orthopnea, shortness of breath, SOB with excertion, SOB at rest, sputum, stridor, wheezing, other Gastrointestinal/Abdominal: Denies: no symptoms, abdomen distended, abdominal pain, black stools, tarry stools, blood in stool, constipated, diarrhea, difficulty swallowing, nausea, poor appetite, poor fluid intake, rectal bleeding, vomiting, other Genitourinary: Denies: no symptoms, burning, discharge, frequency, flank pain, hematuria, incontinence, pain, urgency, other Neurologic/Psychiatric: Denies: no symptoms, anxiety, depressed, emotional problems, headache, numbness, paresthesia, pre-existing deficit, seizure, ti ngling, tremors, weakness, other Endocrine: Denies: no symptoms, excessive sweating, flushing, intolerance to cold, intolerance to heat, increased hunger, increased thirst, increased urine, unexplained weight gain, unexplained weight loss, other Hematologic/Lymphatic: Denies: no symptoms, anemia, easy bleeding, easy bruising, other Allergies: Coded Allergies: No Known Allergies (Unverified , 02/17/15) Subjective no acute events overnight. Patient still with elevated fevers, but otherwise denies all other symptoms. No headaches, sob, cough, chest pain, abdominal pain, back pain, nausea, diarrhea, dysuria. Objective Last 24 Hour Vital Signs Date Time Temp Pulse Resp B/P (MAP) Pulse Ox O2 Delivery O2 Flow Rate FiO2 09/19/20 09:00 Room Air 09/19/20 08:00 103.1 111 20 136/75 (95) 94 09/19/20 04:00 98.1 85 20 102/69 (80) 96 09/19/20 00:48 98.8 09/19/20 00:00 102.4 99 20 124/74 (91) 94 09/18/20 21:00 Room Air 09/18/20 20:00 99.9 88 18 142/88 (106) 96 09/18/20 16:00 99.9 94 20 136/78 (97) 95 09/18/20 14:41 97.7 09/18/20 12:00 97.7 94 20 144/96 (112) 95 Intake and Output 09/18/20 09/19/20 19:00 07:00 Intake Total 1390 ml 350 ml Balance 1390 ml 350 ml Intake Oral 480 ml IV Total 910 ml 350 ml # Voids 2 # Bowel Movements 1 1 Laboratory Tests 09/18/20 11:36: POC Whole Blood Glucose 119H 09/19/20 05:03: POC Whole Blood Glucose 115H 09/19/20 05:30: White Blood Count 7.5#, Red Blood Count 4.25, Hemoglobin 14.0, Hematocrit 41.4, Mean Corpuscular Volume 97#, Mean Corpuscular Hemoglobin 32.8H, Mean Corpuscular Hemoglobin Concent 33.7, Red Cell Distribution Width 12.0, Platelet Count 287, Mean Platelet Volume 4.8L, Neutrophils (%) (Auto) 66.4, Lymphocytes (%) (Auto) 27.7, Monocytes (%) (Auto) 5.5, Eosinophils (%) (Auto) 0.0, Basophils (%) (Auto) 0.4, Sodium Level 136, Potassium Level 4.0, Chloride Level 102, Carbon Dioxide Level 23, Anion Gap 11, Blood Urea Nitrogen 3L, Creatinine 1.0, Estimat Glomerular Filtration Rate 56.8, Glucose Level 112H, Calcium Level 8.8, Phosphorus Level 4.0, Magnesium Level 1.9, Total Bilirubin 0.6, Aspartate Amino Transf (AST/SGOT) 157H, Alanine Aminotransferase (ALT/SGPT) 118H, Alkaline Phosphatase 144H, Total Protein 7.4, Albumin 2.9L, Globulin 4.5, Albumin/Globuli n Ratio 0.6L Height (Feet): 5 Height (Inches): 8.00 Weight (Pounds): 180 General Appearance: no apparent distress, alert, alert oriented x3 EENT: PERRL/EOMI Neck: non-tender, normal inspection Cardiovascular: normal rate, regular rhythm, no JVD Respiratory/Chest: lungs clear, normal breath sounds, no respiratory distress Abdomen: non tender, soft, no organomegaly Extremities: normal range of motion, non-tender Neurologic: nipple maker II-XII grossly normal, 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 She has blood cultures 2 out of 2 bottles that are growing staph epidermidis and likely contaminant patient has no history of central lines. Her UA looks infected, urine culture sent. She has no leukocytosis, T-max 102, lactate 1.9. Covid testing negative. 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 monitor signs for meningitis, sacroiliitis Follow-up repeat BC - persistent fevers Tylenol as needed for fevers IV fluids ID consult: CT abdomen pelvis, diverticulitis and splenic infarct, both likely related to brucellosis follow up CMV, EBV Consider MARY if persistant fevers #Transaminitis likely due to brucellosis and fatty liver #Hypodense splenic lesions- likley due to brucellosis Continue to monitor LFTs GI consult: - repeat colonscopy in 8 weeks per recs Hepatitis panel negative Abdominal ultrasound- fatty liver follow up cmv, ebv #Hyponatremia-likely hypovolemic, continue monitor. IVF #Hypokalemia- replace prn #New onset DM II hba1c 7.1 insulin prn for now Metformin on discharge patient counselled on weight loss VTE prophylaxis: Heparin Diet: Regular CODE STATUS: Full code I spent 45 minutes on this encounter. 29 minutes spent on counseling and care coordination. Plan of care discussed with patient ID physician and GI physician. Oz Christy D.O Sep 19, 2020 10:29
[2020-09-19 12:00] VITALS: BP 110/67
--- NOTE | 2020-09-19 14:27 | Infectious Diseases Prog Note ---
Assessment/Plan Assessment/Plan ASSESSMENT AND PLAN: 1. 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 No other significant past medical history. 3. Elevated LFTs and abdominal pain. GI is following. 4. COVID testing is negative. 5. IV fluids. 6. Case discussed with Dr. Chandra. 7. No known allergies. 8. Social history negative. 9. Family history noncontributory. 10. MAR was noted and reviewed 11. No known drug allergies. 12. Case was discussed with RN. 13. Case was discussed with Dr. Chandra. Subjective Constitutional: Reports: fever, fatigue HEENT: Reports: other - no photophobia ; Denies: congestion Respiratory: Denies: shortness of breath Cardiovascular: Denies: chest pain Gastrointestinal/Abdominal: Denies: nausea, vomiting, diarrhea Neurologic: Denies: headache Psychiatric: Denies: depression Skin: Denies: rash Hematologic: Denies: bleeding Musculoskeletal: Reports: pain - + neck pain Allergies: Coded Allergies: No Known Allergies (Unverified , 02/17/15) Objective Last 24 Hour Vital Signs Date Time Temp Pulse Resp B/P (MAP) Pulse Ox O2 Delivery O2 Flow Rate FiO2 09/19/20 12:00 97.9 93 19 110/67 (81) 94 09/19/20 09:00 Room Air 09/19/20 08:45 98.0 09/19/20 08:45 97.5 09/19/20 08:00 103.1 111 20 136/75 (95) 94 09/19/20 04:00 98.1 85 20 102/69 (80) 96 09/19/20 00:48 98.8 09/19/20 00:00 102.4 99 20 124/74 (91) 94 09/18/20 21:00 Room Air 09/18/20 20:00 99.9 88 18 142/88 (106) 96 09/18/20 16:00 99.9 94 20 136/78 (97) 95 09/18/20 14:41 97.7 Height (Feet): 5 Height (Inches): 8.00 Weight (Pounds): 180 General Appearance: no acute distress HEENT: normocephalic, atraumatic, anicteric, mucous membranes moist, supple - + neck pain but neck supple on exam Respiratory/Chest: lungs clear, normal breath sounds, no respiratory distress, no accessory muscle use Cardiovascular: normal rate, regular rhythm, no gallop/murmur, no JVD Abdomen: normal bowel sounds, no organomegaly, non distended Genitourinary: other - no cva pain Extremities: no cyanosis Skin: no rash 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 Inferior splenic 2 cm and mid anterior splenic 1.6 x 0.2 cm hypodensities could represent splenic infarcts. 2. Minimal sigmoid colon wall thickening with possible minimal adjacent fat stranding is probably incidental, but could in the proper context represent minimal acute uncomplicated diverticulitis. 3. Otherwise no acute abnormality identified to account for patient presentation. TTE: <Conclusion> Technically difficulty study due to poor parasternal acoustical windows and pt's breathing. Normal left ventricular chamber size, systolic function and wall motion. Left ventricular ejection fraction estimated to be 60-65 %. No evidence of left ventricular hypertrophy. Small pericardial effusion along the free wall of RV. All other cardiac chamber sizes are within normal limits. Focal aortic valve sclerosis with adequate cusp excursion. Thickened mitral valve leaflets with normal excursion. Mitral annulus and aortic root calcification. Pulmonic valve not well visualized. Normal tricuspid valve structure. IVC at normal size with physiologic collapse. No discrete vegetations seen, however SBE may not be excluded by transthoracic 2-D echo. A color flow and spectral Doppler study was performed and revealed: No aortic regurgitation. Trace mitral regurgitation. Mitral inflow indicates normal left ventricular diastolic function. Trace tricuspid regurgitation. Tricuspid systolic velocities suggests peak right ventricular systolic pressure of 30 mmHg. No pulmonic regurgitation present. Chest x-ray - Procedure: XRAY Chest 1v Indication: Cough Technique: One view of the chest Comparison: 09/09/2020 Findings: Lungs and pleural spaces are clear. Heart size is normal. Impression: No acute process Microbiology Date/Time Source Procedure Growth Status 09/18/20 16:00 Stool Clostridium difficile Toxin Assay - Final Complete 09/17/20 12:35 Nasopharynx SARS-CoV-2 RdRp Gene Assay - Final Complete 09/13 - blood cultures - gram neg coccobacilli Laboratory Tests Test 09/19/20 05:03 09/19/20 05:30 POC Whole Blood Glucose 115 MG/DL (74-106) H White Blood Count 7.5 K/UL (4.8-10.8) # Red Blood Count 4.25 M/UL (4.20-5.40) Hemoglobin 14.0 G/DL (12.0-16.0) Hematocrit 41.4 % (37.0-47.0) Mean Corpuscular Volume 97 FL (80-99) # Mean Corpuscular Hemoglobin 32.8 PG (27.0-31.0) H Mean Corpuscular Hemoglobin Concent 33.7 G/DL (32.0-36.0) Red Cell Distribution Width 12.0 % (11.6-14.8) Platelet Count 287 K/UL (150-450) Mean Platelet Volume 4.8 FL (6.5-10.1) L Neutrophils (%) (Auto) 66.4 % (45.0-75.0) Lymphocytes (%) (Auto) 27.7 % (20.0-45.0) Monocytes (%) (Auto) 5.5 % (1.0-10.0) Eosinophils (%) (Auto) 0.0 % (0.0-3.0) Basophils (%) (Auto) 0.4 % (0.0-2.0) Sodium Level 136 MMOL/L (136-145) Potassium Level 4.0 MMOL/L (3.5-5.1) Chloride Level 102 MMOL/L (98-107) Carbon Dioxide Level 23 MMOL/L (21-32) Anion Gap 11 mmol/L (5-15) Blood Urea Nitrogen 3 mg/dL (7-18) L Creatinine 1.0 MG/DL (0.55-1.30) Estimat Glomerular Filtration Rate 56.8 mL/min (>60) Glucose Level 112 MG/DL (74-106) H Calcium Level 8.8 MG/DL (8.5-10.1) Phosphorus Level 4.0 MG/DL (2.5-4.9) Magnesium Level 1.9 MG/DL (1.8-2.4) Total Bilirubin 0.6 MG/DL (0.2-1.0) Aspartate Amino Transf (AST/SGOT) 157 U/L (15-37) H Alanine Aminotransferase (ALT/SGPT) 118 U/L (12-78) H Alkaline Phosphatase 144 U/L (46-116) H Total Protein 7.4 G/DL (6.4-8.2) Albumin 2.9 G/DL (3.4-5.0) L Globulin 4.5 g/dL Albumin/Globulin Ratio 0.6 (1.0-2.7) L Current Medications Medications (Trade) Dose Ordered Sig/Ghassan Route PRN Reason Start Time Stop Time Status Last Admin Dose Admin Acetaminophen (Tylenol) 650 mg Q4H PRN ORAL Mild Pain (Pain Scale 1-3) 09/13/20 18:00 10/13/20 17:59 09/18/20 14:11 Acetaminophen (Tylenol) 650 mg Q4H PRN ORAL FEVER 09/14/20 10:15 10/14/20 10:14 09/19/20 08:15 Al Hydroxide/Mg Hydroxide (Mylanta II) 30 ml Q6H PRN ORAL dyspepsia 09/13/20 18:00 10/13/20 17:59 Benzonatate (Tessalon Perles) 100 mg TIDPRN PRN ORAL For Cough 09/18/20 14:30 10/18/20 14:29 09/18/20 14:47 Dextrose (Dextrose 50%) 25 ml Q30M PRN IV Hypoglycemia 09/16/20 12:30 12/15/20 12:29 Dextrose (Dextrose 50%) 50 ml Q30M PRN IV Hypoglycemia 09/16/20 12:30 12/15/20 12:29 Diphenhydramine HCl (Benadryl) 25 mg Q6H PRN ORAL Itching/Pruritis 09/13/20 18:00 10/13/20 17:59 Doxycycline Hyclate 100 mg/ Dextrose 110 ml @ 110 mls/hr Q12HR IV 09/17/20 21:00 09/24/20 20:59 09/19/20 08:14 Enoxaparin Sodium (Lovenox) 40 mg Q24H SUBQ 09/13/20 21:00 12/12/20 20:59 09/18/20 20:09 Gentamicin Protocol (Gentamicin pharmacy to dose) 1 ea DAILY PRN MISC per rx protocol 09/18/20 09:00 10/18/20 08:59 Gentamicin Sulfate 360 mg/ Sodium Chloride 119 ml @ 119 mls/hr Q24H IVPB 09/17/20 20:00 09/24/20 19:59 09/18/20 20:08 Guaifenesin (Robitussin) 100 mg Q4H PRN ORAL For Cough 09/16/20 13:30 12/15/20 13:29 09/19/20 06:10 Hydralazine HCl (Apresoline) 25 mg Q6H PRN ORAL For High Blood Pressure 09/18/20 14:30 12/17/20 14:29 Hydromorphone HCl (Dilaudid) 0.5 mg Q6H PRN IVP Moderate Pain (Pain Scale 4-6) 09/13/20 18:00 09/20/20 17:59 Hydromorphone HCl (Dilaudid) 2 mg Q6H PRN IVP Severe Pain (Pain Scale 7-10) 09/13/20 18:00 09/20/20 17:59 09/15/20 08:06 Insulin Aspart (NovoLOG) BEFORE MEALS AND HS SUBQ 09/16/20 16:30 12/15/20 16:29 09/19/20 11:41 Magnesium Hydroxide (Mom) 30 ml HSPRN PRN ORAL Constipation 09/13/20 18:00 10/13/20 17:59 Nitroglycerin (Ntg) 0.4 mg Q5M X 3 DOSES PRN SL Prn Chest Pain 09/13/20 18:00 10/13/20 17:59 Ondansetron HCl (Zofran) 4 mg Q4H PRN IVP Nausea & Vomiting 09/15/20 17:26 10/15/20 17:25 Sodium Chloride 1,000 ml @ 100 mls/hr Q10H IV 09/19/20 10:32 10/19/20 10:31 09/19/20 11:39 Kaur Mazariegos MD Sep 19, 2020 14:26
[2020-09-19 16:00] VITALS: BP 141/79
[2020-09-19 20:00] VITALS: BP 130/82
[2020-09-19] MEDS: Enoxaparin 40mg Inj SUBQ SCH (20:54)
[2020-09-19] MEDS: Gentamicin inj 360 MG in NS 110 ML IVPB SCH (20:57)
[2020-09-20] VITALS: BP 121/74
[2020-09-20 04:00] VITALS: BP 130/76
[2020-09-20] MEDS: NovoLOG Insulin Flexpen SUBQ SCH ×4 (05:55→21:00)
[2020-09-20 06:58] LABS: ALANINE AMINOTRANSFERASE 91 U/L (12-78); ALBUMIN 2.5 G/DL (3.4-5.0); ALBUMIN/GLOBULIN RATIO 0.6 (1.0-2.7); ALKALINE PHOSPHATASE 112 U/L (46-116); ANION GAP 9 mmol/L (5-15); ASPARTATE AMINO TRANSFERASE 116 U/L (15-37); BILIRUBIN,TOTAL 0.5 MG/DL (0.2-1.0); BLOOD UREA NITROGEN 4 mg/dL (7-18); CALCIUM 8.3 MG/DL (8.5-10.1); CARBON DIOXIDE 25 MMOL/L (21-32); CHLORIDE 102 MMOL/L (98-107); CREATININE 0.8 MG/DL (0.55-1.30); POTASSIUM 3.2 MMOL/L (3.5-5.1); SODIUM 135 MMOL/L (136-145)
[2020-09-20 07:46] LABS: BASOPHILS % (AUTO) 0.5 % (0.0-2.0); HEMATOCRIT 34.4 % (37.0-47.0); HEMOGLOBIN 11.9 G/DL (12.0-16.0); LYMPHOCYTES % (AUTO) 23.9 % (20.0-45.0); MEAN CORPUSCULAR VOLUME 92 FL (80-99); MONOCYTES % (AUTO) 6.2 % (1.0-10.0); NEUTROPHILS % (AUTO) 69.5 % (45.0-75.0); PLATELET COUNT 256 K/UL (150-450); RED BLOOD COUNT 3.75 M/UL (4.20-5.40); RED CELL DISTRIBUTION WIDTH 12.2 % (11.6-14.8); WHITE BLOOD COUNT 5.7 K/UL (4.8-10.8)
[2020-09-20 08:00] VITALS: BP 137/83
[2020-09-20] MEDS: Doxycycline Hyclate 100 MG in D5W 110 ML IV SCH ×2 (09:30→21:46)
--- NOTE | 2020-09-20 10:44 | General Progress Note ---
Subjective Constitutional: Reports: fever; Denies: no symptoms, chills, diaphoresis, malaise, weakness, other HEENT: Denies: no symptoms, eye pain, blurred vision, tearing, double vision, ear pain, ear discharge, nose pain, nose congestion, throat pain, throat swelling, mouth pain, mouth swelling, other Cardiovascular: Denies: no symptoms, chest pain, edema, irregular heart rate, lightheadedness, palpitations, syncope, other Respiratory: Denies: no symptoms, cough, orthopnea, shortness of breath, SOB with excertion, SOB at rest, sputum, stridor, wheezing, other Gastrointestinal/Abdominal: Denies: no symptoms, abdomen distended, abdominal pain, black stools, tarry stools, blood in stool, constipated, diarrhea, difficulty swallowing, nausea, poor appetite, poor fluid intake, rectal bleeding, vomiting, other Genitourinary: Denies: no symptoms, burning, discharge, frequency, flank pain, hematuria, incontinence, pain, urgency, other Neurologic/Psychiatric: Denies: no symptoms, anxiety, depressed, emotional problems, headache, numbness, paresthesia, pre-existing deficit, seizure, ti ngling, tremors, weakness, other Endocrine: Denies: no symptoms, excessive sweating, flushing, intolerance to cold, intolerance to heat, increased hunger, increased thirst, increased urine, unexplained weight gain, unexplained weight loss, other Hematologic/Lymphatic: Denies: no symptoms, anemia, easy bleeding, easy bruising, other Allergies: Coded Allergies: No Known Allergies (Unverified , 02/17/15) Subjective no acute events overnight. Patient with persistent fevers. No menigeal signs. I spoke with daughter over phone and went over risk benefits of MARY in which she understands and agrees to do procedure. She then spoke to her mother and will sign consent. Objective Last 24 Hour Vital Signs Date Time Temp Pulse Resp B/P (MAP) Pulse Ox O2 Delivery O2 Flow Rate FiO2 09/20/20 06:29 98.2 09/20/20 05:53 101.7 09/20/20 04:00 99.8 95 20 130/76 (94) 96 09/20/20 00:00 99.9 83 20 121/74 (90) 100 09/19/20 21:28 99.9 09/19/20 21:00 Room Air 09/19/20 20:00 99.9 83 20 130/82 (98) 96 09/19/20 16:48 99.0 09/19/20 16:48 99.0 09/19/20 16:00 102.6 115 20 141/79 (99) 98 09/19/20 12:00 97.9 93 19 110/67 (81) 94 Intake and Output 09/19/20 09/20/20 19:00 07:00 Intake Total 1410 ml Balance 1410 ml Intake Oral 600 ml IV Total 810 ml # Voids 3 Laboratory Tests 09/20/20 05:11: White Blood Count 5.7, Red Blood Count 3.75L, Hemoglobin 11.9L, Hematocrit 34.4L , Mean Corpuscular Volume 92, Mean Corpuscular Hemoglobin 31.7H, Mean Corpuscular Hemoglobin Concent 34.5, Red Cell Distribution Width 12.2, Platelet Count 256, Mean Platelet Volume 5.2L, Neutrophils (%) (Auto) 69.5, Lymphocytes (%) (Auto) 23.9, Monocytes (%) (Auto) 6.2, Eosinophils (%) (Auto) 0.0, Basophils (%) (Auto) 0.5, Sodium Level 135L, Potassium Level 3.2L, Chloride Level 102, Carbon Dioxide Level 25, Anion Gap 9, Blood Urea Nitrogen 4L, Creatinine 0.8, Estimat Glomerular Filtration Rate > 60, Glucose Level 117H, Calcium Level 8.3L, Magnesium Level 1.7L, Total Bilirubin 0.5, Aspartate Amino Transf (AST/SGOT) 116H, Alanine Aminotransferase (ALT/SGPT) 91H, Alkaline Phosphatase 112, Total Protein 6.5, Albumin 2.5L, Globulin 4.0, Albumin/Globulin Ratio 0.6L Height (Feet): 5 Height (Inches): 8.00 Weight (Pounds): 180 General Appearance: alert, lethargic, alert oriented x3 EENT: PERRL/EOMI Cardiovascular: normal rate, regular rhythm, regularly irregular Respiratory/Chest: lungs clear, normal breath sounds, no respiratory distress Abdomen: normal bowel sounds, non tender, soft Extremities: normal range of motion Edema: no edema noted Arm (L), no edema noted Arm (R), no edema noted Leg (L), no edema noted Leg (R), no edema noted Pedal (L), no edema noted Pedal (R), no edema noted Generalized 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 She has blood cultures 2 out of 2 bottles that are growing staph epidermidis and likely contaminant patient has no history of central lines. Her UA looks infected, urine culture sent. She has no leukocytosis, T-max 102, lactate 1.9. Covid testing negative. 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 monitor signs for meningitis, sacroiliitis Follow-up repeat BC - persistent fevers Tylenol as needed for fevers IV fluids ID consult: CT abdomen pelvis, diverticulitis and splenic infarct, both likely related to brucellosis follow up CMV, EBV I have gained consent from patient and daughter after going over risk and benefits of MARY. I reached out to Dr. Jamil, awaiting return call. #Transaminitis likely due to brucellosis and fatty liver #Hypodense splenic lesions- likley due to brucellosis Continue to monitor LFTs GI consult: - repeat colonscopy in 8 weeks per recs Hepatitis panel negative Abdominal ultrasound- fatty liver follow up cmv, ebv #Hyponatremia-likely hypovolemic, continue monitor. IVF #Hypokalemia- replace prn #New onset DM II hba1c 7.1 insulin prn for now Metformin on discharge patient counselled on weight loss VTE prophylaxis: Heparin Diet: Regular CODE STATUS: Full code I spent 47 minutes on this encounter. 31 minutes spent on counseling and care coordination. Plan of care discussed with patient ID physician and GI physician. Oz Christy D.O Sep 20, 2020 10:44
[2020-09-20] MEDS ORDERED: Magnesium Oxide 400mg tab ORAL SCH (11:30)
[2020-09-20 12:00] VITALS: BP 139/87
--- NOTE | 2020-09-20 12:05 | General Progress Note ---
Subjective ROS Limited/Unobtainable: No Allergies: Coded Allergies: No Known Allergies (Unverified , 02/17/15) Objective Last 24 Hour Vital Signs Date Time Temp Pulse Resp B/P (MAP) Pulse Ox O2 Delivery O2 Flow Rate FiO2 09/20/20 08:00 97.0 77 20 137/83 (101) 97 09/20/20 06:29 98.2 09/20/20 05:53 101.7 09/20/20 04:00 99.8 95 20 130/76 (94) 96 09/20/20 00:00 99.9 83 20 121/74 (90) 100 09/19/20 21:28 99.9 09/19/20 21:00 Room Air 09/19/20 20:00 99.9 83 20 130/82 (98) 96 09/19/20 16:48 99.0 09/19/20 16:48 99.0 09/19/20 16:00 102.6 115 20 141/79 (99) 98 Intake and Output 09/19/20 09/20/20 19:00 07:00 Intake Total 1410 ml Balance 1410 ml Intake Oral 600 ml IV Total 810 ml # Voids 3 Laboratory Tests 09/20/20 05:11: White Blood Count 5.7, Red Blood Count 3.75L, Hemoglobin 11.9L, Hematocrit 34.4L , Mean Corpuscular Volume 92, Mean Corpuscular Hemoglobin 31.7H, Mean Corpuscular Hemoglobin Concent 34.5, Red Cell Distribution Width 12.2, Platelet Count 256, Mean Platelet Volume 5.2L, Neutrophils (%) (Auto) 69.5, Lymphocytes ( %) (Auto) 23.9, Monocytes (%) (Auto) 6.2, Eosinophils (%) (Auto) 0.0, Basophils (%) (Auto) 0.5, Sodium Level 135L, Potassium Level 3.2L, Chloride Level 102, Carbon Dioxide Level 25, Anion Gap 9, Blood Urea Nitrogen 4L, Creatinine 0.8, Estimat Glomerular Filtration Rate > 60, Glucose Level 117H, Calcium Level 8.3L, Magnesium Level 1.7L, Total Bilirubin 0.5, Aspartate Amino Transf (AST/SGOT) 116H, Alanine Aminotransferase (ALT/SGPT) 91H, Alkaline Phosphatase 112, Total Protein 6.5, Albumin 2.5L, Globulin 4.0, Albumin/Globulin Ratio 0.6L Height (Feet): 5 Height (Inches): 8.00 Weight (Pounds): 180 General Appearance: alert EENT: PERRL/EOMI Neck: supple Cardiovascular: normal peripheral pulses Respiratory/Chest: lungs clear Abdomen: normal bowel sounds, non tender, soft Extremities: non-tender Assessment/Plan Problem List: (1) Transaminitis ICD Codes: R74.01 - Elevation of levels of liver transaminase levels SNOMED: 255316784, 364307513 (2) Bacteremia ICD Codes: R78.81 - Bacteremia SNOMED: 3174437 (3) Myalgia ICD Codes: M79.10 - Myalgia, unspecified site SNOMED: 90598226 (4) Fatigue ICD Codes: R53.83 - Other fatigue SNOMED: 75843505 Status: stable Assessment/Plan: elevated LFTS possibly due to sepsis and fatty liver abd us>>> reviewed repeat labs hepatitis panel>>> neg fu CMV and EBV>>>> neg positive blood cultures for Brucella fu ID recs on abx per ID needs out patient fu for colonoscopy in 8 weeks will fu Louis Gerard MD Sep 20, 2020 12:04
[2020-09-20 16:00] VITALS: BP 148/87
[2020-09-20 20:00] VITALS: BP 148/90
[2020-09-20] MEDS: Gentamicin inj 360 MG in NS 110 ML IVPB SCH (21:12)
[2020-09-20] MEDS: Enoxaparin 40mg Inj SUBQ SCH (21:52)
[2020-09-21] VITALS: BP 142/85
[2020-09-21] MEDS: guaiFENesin 100mg/5ml Liq ud ORAL PRN (01:16)
[2020-09-21 04:00] VITALS: BP 135/78
[2020-09-21] MEDS: NovoLOG Insulin Flexpen SUBQ SCH ×4 (05:31→21:00)
[2020-09-21 06:51] LABS: BASOPHILS % (AUTO) 1.1 % (0.0-2.0); EOSINOPHILS % (AUTO) 0.3 % (0.0-3.0); HEMATOCRIT 37.3 % (37.0-47.0); HEMOGLOBIN 12.5 G/DL (12.0-16.0); LYMPHOCYTES % (AUTO) 46.2 % (20.0-45.0); MEAN CORPUSCULAR VOLUME 94 FL (80-99); MONOCYTES % (AUTO) 8.8 % (1.0-10.0); NEUTROPHILS % (AUTO) 43.6 % (45.0-75.0); PLATELET COUNT 256 K/UL (150-450); RED BLOOD COUNT 3.98 M/UL (4.20-5.40); RED CELL DISTRIBUTION WIDTH 12.1 % (11.6-14.8); WHITE BLOOD COUNT 4.1 K/UL (4.8-10.8)
[2020-09-21 07:44] LABS: ALANINE AMINOTRANSFERASE 88 U/L (12-78); ALBUMIN 2.5 G/DL (3.4-5.0); ALBUMIN/GLOBULIN RATIO 0.6 (1.0-2.7); ALKALINE PHOSPHATASE 111 U/L (46-116); ANION GAP 10 mmol/L (5-15); ASPARTATE AMINO TRANSFERASE 130 U/L (15-37); BILIRUBIN,TOTAL 0.4 MG/DL (0.2-1.0); BLOOD UREA NITROGEN 4 mg/dL (7-18); CALCIUM 8.8 MG/DL (8.5-10.1); CARBON DIOXIDE 25 MMOL/L (21-32); CHLORIDE 104 MMOL/L (98-107); CREATININE 0.8 MG/DL (0.55-1.30); PHOSPHORUS 4.5 MG/DL (2.5-4.9); POTASSIUM 3.2 MMOL/L (3.5-5.1); SODIUM 139 MMOL/L (136-145)
[2020-09-21 08:00] VITALS: BP 142/99
[2020-09-21] MEDS: Doxycycline Hyclate 100 MG in D5W 110 ML IV SCH ×2 (09:55→21:05)
--- NOTE | 2020-09-21 10:49 | General Progress Note ---
Subjective ROS Limited/Unobtainable: Yes Allergies: Coded Allergies: No Known Allergies (Unverified , 02/17/15) Objective Last 24 Hour Vital Signs Date Time Temp Pulse Resp B/P (MAP) Pulse Ox O2 Delivery O2 Flow Rate FiO2 09/21/20 08:00 97.5 71 19 142/99 (113) 98 09/21/20 04:00 98.5 78 19 135/78 (97) 98 09/21/20 01:53 99.1 09/21/20 00:00 98.9 82 18 142/85 (104) 98 09/20/20 21:00 Room Air 09/20/20 20:00 99.3 89 19 148/90 (109) 97 09/20/20 16:00 98.1 89 20 148/87 (107) 98 09/20/20 12:00 97.5 83 20 139/87 (104) 100 Intake and Output 09/20/20 09/21/20 19:00 07:00 Intake Total 1610 ml 1360 ml Balance 1610 ml 1360 ml Intake Oral 600 ml 360 ml IV Total 1010 ml 1000 ml # Voids 3 Laboratory Tests 09/21/20 06:05: White Blood Count 4.1L, Red Blood Count 3.98L, Hemoglobin 12.5, Hematocrit 37.3, Mean Corpuscular Volume 94, Mean Corpuscular Hemoglobin 31.4H, Mean Corpuscular Hemoglobin Concent 33.5, Red Cell Distribution Width 12.1, Platelet Count 256, Mean Platelet Volume 5.2L, Neutrophils (%) (Auto) 43.6L, Lymphocytes (%) (Auto) 46.2H, Monocytes (%) (Auto) 8.8, Eosinophils (%) (Auto) 0.3, Basophils (%) (Auto) 1.1, Sodium Level 139, Potassium Level 3.2L, Chloride Level 104, Carbon Dioxide Level 25, Anion Gap 10, Blood Urea Nitrogen 4L, Creatinine 0.8, Estimat Glomerular Filtration Rate > 60, Glucose Level 123H, Calcium Level 8.8, Phosphorus Level 4.5, Magnesium Level 2.0, Total Bilirubin 0.4, Aspartate Amino Transf (AST/SGOT) 130H, Alanine Aminotransferase (ALT/SGPT) 88H, Alkaline Phosphatase 111, Total Protein 6.5, Albumin 2.5L, Globulin 4.0, Albumin/Globulin Ratio 0.6L Height (Feet): 5 Height (Inches): 8.00 Weight (Pounds): 180 General Appearance: no apparent distress EENT: normal ENT inspection Neck: supple Cardiovascular: normal rate Respiratory/Chest: decreased breath sounds Abdomen: normal bowel sounds, non tender, soft Extremities: non-tender Assessment/Plan Problem List: (1) Transaminitis ICD Codes: R74.01 - Elevation of levels of liver transaminase levels SNOMED: 696771676, 812019667 (2) Bacteremia ICD Codes: R78.81 - Bacteremia SNOMED: 1997913 (3) Myalgia ICD Codes: M79.10 - Myalgia, unspecified site SNOMED: 27651962 (4) Fatigue ICD Codes: R53.83 - Other fatigue SNOMED: 78875642 Status: stable Assessment/Plan: elevated LFTS possibly due to sepsis and fatty liver abd us>>> reviewed repeat labs hepatitis panel>>> neg fu CMV and EBV>>>> neg positive blood cultures for Brucella fu ID recs on abx per ID diverticulitis needs out patient fu for colonoscopy in 8 weeks will fu Louis Gerard MD Sep 21, 2020 10:49
--- NOTE | 2020-09-21 11:20 | General Progress Note ---
Subjective Constitutional: Reports: fever; Denies: no symptoms, chills, diaphoresis, malaise, weakness, other HEENT: Denies: no symptoms, eye pain, blurred vision, tearing, double vision, ear pain, ear discharge, nose pain, nose congestion, throat pain, throat swelling, mouth pain, mouth swelling, other Cardiovascular: Denies: no symptoms, chest pain, edema, irregular heart rate, lightheadedness, palpitations, syncope, other Respiratory: Denies: no symptoms, cough, orthopnea, shortness of breath, SOB with excertion, SOB at rest, sputum, stridor, wheezing, other Gastrointestinal/Abdominal: Denies: no symptoms, abdomen distended, abdominal pain, black stools, tarry stools, blood in stool, constipated, diarrhea, difficulty swallowing, nausea, poor appetite, poor fluid intake, rectal bleeding, vomiting, other Genitourinary: Denies: no symptoms, burning, discharge, frequency, flank pain, hematuria, incontinence, pain, urgency, other Neurologic/Psychiatric: Denies: no symptoms, anxiety, depressed, emotional problems, headache, numbness, paresthesia, pre-existing deficit, seizure, ti ngling, tremors, weakness, other Endocrine: Denies: no symptoms, excessive sweating, flushing, intolerance to cold, intolerance to heat, increased hunger, increased thirst, increased urine, unexplained weight gain, unexplained weight loss, other Hematologic/Lymphatic: Denies: no symptoms, anemia, easy bleeding, easy bruising, other Allergies: Coded Allergies: No Known Allergies (Unverified , 02/17/15) Subjective no acute events overnight. Tmax 100.0 overnight. Patient feels better. No new complaints. Objective Last 24 Hour Vital Signs Date Time Temp Pulse Resp B/P (MAP) Pulse Ox O2 Delivery O2 Flow Rate FiO2 09/21/20 09:00 Room Air 09/21/20 08:00 97.5 71 19 142/99 (113) 98 09/21/20 04:00 98.5 78 19 135/78 (97) 98 09/21/20 01:53 99.1 09/21/20 00:00 98.9 82 18 142/85 (104) 98 09/20/20 21:00 Room Air 09/20/20 20:00 99.3 89 19 148/90 (109) 97 09/20/20 16:00 98.1 89 20 148/87 (107) 98 09/20/20 12:00 97.5 83 20 139/87 (104) 100 Intake and Output 09/20/20 09/21/20 19:00 07:00 Intake Total 1610 ml 1360 ml Balance 1610 ml 1360 ml Intake Oral 600 ml 360 ml IV Total 1010 ml 1000 ml # Voids 3 Laboratory Tests 09/21/20 06:05: White Blood Count 4.1L, Red Blood Count 3.98L, Hemoglobin 12.5, Hematocrit 37.3, Mean Corpuscular Volume 94, Mean Corpuscular Hemoglobin 31.4H, Mean Corpuscular Hemoglobin Concent 33.5, Red Cell Distribution Width 12.1, Platelet Count 256, Mean Platelet Volume 5.2L, Neutrophils (%) (Auto) 43.6L, Lymphocytes (%) (Auto) 46.2H, Monocytes (%) (Auto) 8.8, Eosinophils (%) (Auto) 0.3, Basophils (%) (Auto) 1.1, Sodium Level 139, Potassium Level 3.2L, Chloride Level 104, Carbon Dioxide Level 25, Anion Gap 10, Blood Urea Nitrogen 4L, Creatinine 0.8, Estimat Glomerular Filtration Rate > 60, Glucose Level 123H, Calcium Level 8.8, Phosphorus Level 4.5, Magnesium Level 2.0, Total Bilirubin 0.4, Aspartate Amino Transf (AST/SGOT) 130H, Alanine Aminotransferase (ALT/SGPT) 88H, Alkaline Phosphatase 111, Total Protein 6.5, Albumin 2.5L, Globulin 4.0, Albumin/Globulin Ratio 0.6L Height (Feet): 5 Height (Inches): 8.00 Weight (Pounds): 180 General Appearance: no apparent distress, lethargic, alert oriented x3 EENT: PERRL/EOMI Neck: non-tender, normal inspection Cardiovascular: normal rate, regular rhythm, no JVD Respiratory/Chest: lungs clear, normal breath sounds, respiratory distress Abdomen: normal bowel sounds, non tender, soft Extremities: normal range of motion Edema: no edema noted Arm (L), no edema noted Arm (R), no edema noted Leg (L), no edema noted Leg (R), no edema noted Pedal (L), no edema noted Pedal (R), no edema noted 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 She has blood cultures 2 out of 2 bottles that are growing staph epidermidis and likely contaminant patient has no history of central lines. Her UA looks infected, urine culture sent. She has no leukocytosis, T-max 102, lactate 1.9. Covid testing negative. 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 monitor signs for meningitis, sacroiliitis Follow-up repeat BC - persistent fevers Tylenol as needed for fevers IV fluids ID consult: CT abdomen pelvis, diverticulitis and splenic infarct, both likely related to brucellosis follow up CMV, EBV I have gained consent from patient and daughter after going over risk and benefits of MARY. Dr. Alfredo consulted and will see patient. #Transaminitis likely due to brucellosis and fatty liver #Hypodense splenic lesions- likley due to brucellosis Continue to monitor LFTs GI consult: - repeat colonscopy in 8 weeks per recs Hepatitis panel negative Abdominal ultrasound- fatty liver follow up cmv, ebv #Hyponatremia-likely hypovolemic, continue monitor. IVF #Hypokalemia- replace prn #New onset DM II hba1c 7.1 insulin prn for now Metformin on discharge patient counselled on weight loss VTE prophylaxis: Heparin Diet: Regular CODE STATUS: Full code Dispo: pending MARY, resolution of fevers I spent 31 minutes on this encounter. 21 minutes spent on counseling and care coordination. Plan of care discussed with patient ID physician and GI physician. Time may of note may not reflect when patient was seen. Oz Christy D.O Sep 21, 2020 11:20
[2020-09-21 12:00] VITALS: BP 141/81
--- NOTE | 2020-09-21 14:48 | Infectious Diseases Prog Note ---
Assessment/Plan Assessment/Plan ASSESSMENT AND PLAN: 1. 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 No other significant past medical history. 3. Elevated LFTs and abdominal pain. GI is following. 4. COVID testing is negative. 5. IV fluids. 6. Case discussed with Dr. Chandra. 7. No known allergies. 8. Social history negative. 9. Family history noncontributory. 10. MAR was noted and reviewed 11. No known drug allergies. 12. Case was discussed with RN. 13. Case was discussed with Dr. Chandra. Subjective Constitutional: Reports: other - fever yesterday ; Denies: fever HEENT: Reports: other - no headache ; Denies: visual change, congestion Respiratory: Denies: shortness of breath Cardiovascular: Denies: chest pain Gastrointestinal/Abdominal: Denies: nausea, vomiting, diarrhea Genitourinary: Reports: other - d/w RN Neurologic: Denies: headache Psychiatric: Denies: depression Skin: Denies: rash Hematologic: Denies: bleeding Musculoskeletal: Reports: other - no joint pain ; Denies: pain Allergies: Coded Allergies: No Known Allergies (Unverified , 02/17/15) Objective Last 24 Hour Vital Signs Date Time Temp Pulse Resp B/P (MAP) Pulse Ox O2 Delivery O2 Flow Rate FiO2 09/21/20 12:00 96.8 83 19 141/81 (101) 97 09/21/20 09:00 Room Air 09/21/20 08:00 97.5 71 19 142/99 (113) 98 09/21/20 04:00 98.5 78 19 135/78 (97) 98 09/21/20 01:53 99.1 09/21/20 00:00 98.9 82 18 142/85 (104) 98 09/20/20 21:00 Room Air 09/20/20 20:00 99.3 89 19 148/90 (109) 97 09/20/20 16:00 98.1 89 20 148/87 (107 98 Height (Feet): 5 Height (Inches): 8.00 Weight (Pounds): 180 General Appearance: no acute distress HEENT: normocephalic, atraumatic, anicteric, mucous membranes moist Respiratory/Chest: lungs clear, normal breath sounds, no respiratory distress, no accessory muscle use Cardiovascular: normal rate, regular rhythm, no gallop/murmur, no JVD Abdomen: normal bowel sounds, soft, non tender, no organomegaly, non distended Genitourinary: other - no mohan Extremities: no cyanosis Skin: no rash 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 Inferior splenic 2 cm and mid anterior splenic 1.6 x 0.2 cm hypodensities could represent splenic infarcts. 2. Minimal sigmoid colon wall thickening with possible minimal adjacent fat stranding is probably incidental, but could in the proper context represent minimal acute uncomplicated diverticulitis. 3. Otherwise no acute abnormality identified to account for patient presentation. TTE: <Conclusion> Technically difficulty study due to poor parasternal acoustical windows and pt's breathing. Normal left ventricular chamber size, systolic function and wall motion. Left ventricular ejection fraction estimated to be 60-65 %. No evidence of left ventricular hypertrophy. Small pericardial effusion along the free wall of RV. All other cardiac chamber sizes are within normal limits. Focal aortic valve sclerosis with adequate cusp excursion. Thickened mitral valve leaflets with normal excursion. Mitral annulus and aortic root calcification. Pulmonic valve not well visualized. Normal tricuspid valve structure. IVC at normal size with physiologic collapse. No discrete vegetations seen, however SBE may not be excluded by transthoracic 2-D echo. A color flow and spectral Doppler study was performed and revealed: No aortic regurgitation. Trace mitral regurgitation. Mitral inflow indicates normal left ventricular diastolic function. Trace tricuspid regurgitation. Tricuspid systolic velocities suggests peak right ventricular systolic pressure of 30 mmHg. No pulmonic regurgitation present. Chest x-ray - Procedure: XRAY Chest 1v Indication: Cough Technique: One view of the chest Comparison: 09/09/2020 Findings: Lungs and pleural spaces are clear. Heart size is normal. Impression: No acute process Microbiology Date/Time Source Procedure Growth Status 09/19/20 05:30 Blood Blood Culture - Preliminary NO GROWTH AFTER 24 HOURS Resulted 09/19/20 05:15 Blood Blood Culture - Preliminary NO GROWTH AFTER 24 HOURS Resulted 09/18/20 16:00 Stool Stool Culture - Final NO SALMONELLA,SHIGELLA,OR CAMPYLOBACT... Complete 09/18/20 16:00 Stool Clostridium difficile Toxin Assay - Final Complete Laboratory Tests Test 09/21/20 06:05 White Blood Count 4.1 K/UL (4.8-10.8) L Red Blood Count 3.98 M/UL (4.20-5.40) L Hemoglobin 12.5 G/DL (12.0-16.0) Hematocrit 37.3 % (37.0-47.0) Mean Corpuscular Volume 94 FL (80-99) Mean Corpuscular Hemoglobin 31.4 PG (27.0-31.0) H Mean Corpuscular Hemoglobin Concent 33.5 G/DL (32.0-36.0) Red Cell Distribution Width 12.1 % (11.6-14.8) Platelet Count 256 K/UL (150-450) Mean Platelet Volume 5.2 FL (6.5-10.1) L Neutrophils (%) (Auto) 43.6 % (45.0-75.0) L Lymphocytes (%) (Auto) 46.2 % (20.0-45.0) H Monocytes (%) (Auto) 8.8 % (1.0-10.0) Eosinophils (%) (Auto) 0.3 % (0.0-3.0) Basophils (%) (Auto) 1.1 % (0.0-2.0) Sodium Level 139 MMOL/L (136-145) Potassium Level 3.2 MMOL/L (3.5-5.1) L Chloride Level 104 MMOL/L (98-107) Carbon Dioxide Level 25 MMOL/L (21-32) Anion Gap 10 mmol/L (5-15) Blood Urea Nitrogen 4 mg/dL (7-18) L Creatinine 0.8 MG/DL (0.55-1.30) Estimat Glomerular Filtration Rate > 60 mL/min (>60) Glucose Level 123 MG/DL (74-106) H Calcium Level 8.8 MG/DL (8.5-10.1) Phosphorus Level 4.5 MG/DL (2.5-4.9) Magnesium Level 2.0 MG/DL (1.8-2.4) Total Bilirubin 0.4 MG/DL (0.2-1.0) Aspartate Amino Transf (AST/SGOT) 130 U/L (15-37) H Alanine Aminotransferase (ALT/SGPT) 88 U/L (12-78) H Alkaline Phosphatase 111 U/L (46-116) Total Protein 6.5 G/DL (6.4-8.2) Albumin 2.5 G/DL (3.4-5.0) L Globulin 4.0 g/dL Albumin/Globulin Ratio 0.6 (1.0-2.7) L Current Medications Medications (Trade) Dose Ordered Sig/Ghassan Route PRN Reason Start Time Stop Time Status Last Admin Dose Admin Acetaminophen (Tylenol) 650 mg Q4H PRN ORAL Mild Pain (Pain Scale 1-3) 09/13/20 18:00 10/13/20 17:59 09/20/20 05:59 Acetaminophen (Tylenol) 650 mg Q4H PRN ORAL FEVER 09/14/20 10:15 10/14/20 10:14 09/21/20 01:23 Al Hydroxide/Mg Hydroxide (Mylanta II) 30 ml Q6H PRN ORAL dyspepsia 09/13/20 18:00 10/13/20 17:59 Benzonatate (Tessalon Perles) 100 mg TIDPRN PRN ORAL For Cough 09/18/20 14:30 10/18/20 14:29 09/18/20 14:47 Dextrose (Dextrose 50%) 25 ml Q30M PRN IV Hypoglycemia 09/16/20 12:30 12/15/20 12:29 Dextrose (Dextrose 50%) 50 ml Q30M PRN IV Hypoglycemia 09/16/20 12:30 12/15/20 12:29 Diphenhydramine HCl (Benadryl) 25 mg Q6H PRN ORAL Itching/Pruritis 09/13/20 18:00 10/13/20 17:59 Doxycycline Hyclate 100 mg/ Dextrose 110 ml @ 110 mls/hr Q12HR IV 09/17/20 21:00 09/24/20 20:59 09/21/20 09:55 Enoxaparin Sodium (Lovenox) 40 mg Q24H SUBQ 10/15/20 21:00 12/12/20 20:59 09/20/20 21:52 Gentamicin Protocol (Gentamicin pharmacy to dose) 1 ea DAILY PRN MISC per rx protocol 09/18/20 09:00 10/18/20 08:59 Gentamicin Sulfate 360 mg/ Sodium Chloride 119 ml @ 119 mls/hr Q24H IVPB 09/17/20 20:00 09/24/20 19:59 09/20/20 21:12 Guaifenesin (Robitussin) 100 mg Q4H PRN ORAL For Cough 09/16/20 13:30 12/15/20 13:29 09/21/20 01:16 Hydralazine HCl (Apresoline) 25 mg Q6H PRN ORAL For High Blood Pressure 09/18/20 14:30 12/17/20 14:29 Insulin Aspart (NovoLOG) BEFORE MEALS AND HS SUBQ 09/16/20 16:30 12/15/20 16:29 09/19/20 11:41 Magnesium Hydroxide (Mom) 30 ml HSPRN PRN ORAL Constipation 09/13/20 18:00 10/13/20 17:59 Nitroglycerin (Ntg) 0.4 mg Q5M X 3 DOSES PRN SL Prn Chest Pain 09/13/20 18:00 10/13/20 17:59 Ondansetron HCl (Zofran) 4 mg Q4H PRN IVP Nausea & Vomiting 09/15/20 17:26 10/15/20 17:25 Sodium Chloride 1,000 ml @ 75 mls/hr [id number] IV 09/19/20 10:32 10/19/20 19:00 09/21/20 03:00 Kaur Mazariegos MD Sep 21, 2020 14:48
[2020-09-21 16:00] VITALS: BP 141/86
[2020-09-21 20:00] VITALS: BP 128/79
[2020-09-21] MEDS: Gentamicin inj 360 MG in NS 110 ML IVPB SCH (20:09)
[2020-09-21] MEDS: Enoxaparin 40mg Inj SUBQ SCH (20:10)
[2020-09-22] VITALS: BP 128/72
[2020-09-22 04:00] VITALS: BP 128/82
[2020-09-22] MEDS: NovoLOG Insulin Flexpen SUBQ SCH ×5 (05:26→20:55)
[2020-09-22 07:48] LABS: BASOPHILS % (AUTO) 0.8 % (0.0-2.0); EOSINOPHILS % (AUTO) 0.4 % (0.0-3.0); HEMATOCRIT 38.1 % (37.0-47.0); HEMOGLOBIN 12.6 G/DL (12.0-16.0); LYMPHOCYTES % (AUTO) 44.3 % (20.0-45.0); MEAN CORPUSCULAR VOLUME 95 FL (80-99); MONOCYTES % (AUTO) 9.3 % (1.0-10.0); NEUTROPHILS % (AUTO) 45.3 % (45.0-75.0); PLATELET COUNT 305 K/UL (150-450); RED BLOOD COUNT 4.03 M/UL (4.20-5.40); RED CELL DISTRIBUTION WIDTH 12.3 % (11.6-14.8); WHITE BLOOD COUNT 4.1 K/UL (4.8-10.8)
[2020-09-22 08:00] VITALS: BP 151/98
[2020-09-22 08:07] LABS: ALANINE AMINOTRANSFERASE 106 U/L (12-78); ALBUMIN 2.6 G/DL (3.4-5.0); ALBUMIN/GLOBULIN RATIO 0.6 (1.0-2.7); ALKALINE PHOSPHATASE 103 U/L (46-116); ANION GAP 9 mmol/L (5-15); ASPARTATE AMINO TRANSFERASE 155 U/L (15-37); BILIRUBIN,TOTAL 0.4 MG/DL (0.2-1.0); BLOOD UREA NITROGEN 4 mg/dL (7-18); CALCIUM 8.7 MG/DL (8.5-10.1); CARBON DIOXIDE 26 MMOL/L (21-32); CHLORIDE 105 MMOL/L (98-107); CREATININE 0.8 MG/DL (0.55-1.30); POTASSIUM 3.3 MMOL/L (3.5-5.1); SODIUM 139 MMOL/L (136-145)
[2020-09-22] MEDS: Doxycycline Hyclate 100 MG in D5W 110 ML IV SCH ×2 (09:47→20:56)
[2020-09-22 12:00] VITALS: BP 153/90
--- NOTE | 2020-09-22 14:38 | General Progress Note ---
Subjective Constitutional: Denies: no symptoms, chills, diaphoresis, fever, malaise, weakness, other HEENT: Denies: no symptoms, eye pain, blurred vision, tearing, double vision, ear pain, ear discharge, nose pain, nose congestion, throat pain, throat swelling, mouth pain, mouth swelling, other Cardiovascular: Denies: no symptoms, chest pain, edema, irregular heart rate, lightheadedness, palpitations, syncope, other Respiratory: Denies: no symptoms, cough, orthopnea, shortness of breath, SOB with excertion, SOB at rest, sputum, stridor, wheezing, other Gastrointestinal/Abdominal: Denies: no symptoms, abdomen distended, abdominal pain, black stools, tarry stools, blood in stool, constipated, diarrhea, difficulty swallowing, nausea, poor appetite, poor fluid intake, rectal bleeding, vomiting, other Genitourinary: Denies: no symptoms, burning, discharge, frequency, flank pain, hematuria, incontinence, pain, urgency, other Neurologic/Psychiatric: Denies: no symptoms, anxiety, depressed, emotional problems, headache, numbness, paresthesia, pre-existing deficit, seizure, tingling, tremors, weakness, other Endocrine: Denies: no symptoms, excessive sweating, flushing, intolerance to cold, intolerance to heat, increased hunger, increased thirst, increased urine, unexplained weight gain, unexplained weight loss, other Hematologic/Lymphatic: Denies: no symptoms, anemia, easy bleeding, easy bruising, other Allergies: Coded Allergies: No Known Allergies (Unverified , 02/17/15) Subjective no acute events overnight. No fevers in last 48 hours. Patient feels better. No headaches, chest pain. Eating well. Objective Last 24 Hour Vital Signs Date Time Temp Pulse Resp B/P (MAP) Pulse Ox O2 Delivery O2 Flow Rate FiO2 09/22/20 12:00 97.5 88 18 153/90 (111) 98 09/22/20 09:00 Room Air 09/22/20 08:00 97.5 73 18 151/98 (115) 95 09/22/20 04:00 97.7 81 16 128/82 (97) 96 09/22/20 00:00 97.7 84 20 128/72 (90) 95 09/21/20 21:00 Room Air 09/21/20 20:00 97.7 79 20 128/79 (95) 97 09/21/20 16:00 97.7 78 19 141/86 (104) 97 Intake and Output 09/21/20 09/22/20 19:00 07:00 Intake Total 710 ml 450 ml Balance 710 ml 450 ml Intake Oral 600 ml IV Total 110 ml 450 ml # Voids 3 2 Laboratory Tests 09/22/20 06:35: White Blood Count 4.1L, Red Blood Count 4.03L, Hemoglobin 12.6, Hematocrit 38.1, Mean Corpuscular Volume 95, Mean Corpuscular Hemoglobin 31.3H, Mean Corpuscular Hemoglobin Concent 33.2, Red Cell Distribution Width 12.3, Platelet Count 305, Mean Platelet Volume 4.9L, Neutrophils (%) (Auto) 45.3, Lymphocytes (%) (Auto) 44.3, Monocytes (%) (Auto) 9.3, Eosinophils (%) (Auto) 0.4, Basophils (%) (Auto) 0.8, Sodium Level 139, Potassium Level 3.3L, Chloride Level 105, Carbon Dioxide Level 26, Anion Gap 9, Blood Urea Nitrogen 4L, Creatinine 0.8, Estimat Glomerular Filtration Rate > 60, Glucose Level 129H, Calcium Level 8.7, Phosphorus Level 4.0, Magnesium Level 2.0, Total Bilirubin 0.4, Aspartate Amino Transf (AST/SGOT) 155H, Alanine Aminotransferase (ALT/SGPT) 106H, Alkaline Phosphatase 103, Total Protein 6.7, Albumin 2.6L, Globulin 4.1, Albumin/Globulin Ratio 0.6L Height (Feet): 5 Height (Inches): 8.00 Weight (Pounds): 180 General Appearance: no apparent distress, alert, alert oriented x3 Neck: non-tender, normal inspection Cardiovascular: normal rate, regular rhythm, no JVD Respiratory/Chest: lungs clear, normal breath sounds, no respiratory distress Abdomen: normal bowel sounds, non tender, soft Extremities: normal range of motion, non-tender Edema: no edema noted Arm (L), no edema noted Arm (R), no edema noted Leg (L), no edema noted Leg (R), no edema noted Pedal (L), no edema noted Pedal (R), no edema noted 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 She has blood cultures 2 out of 2 bottles that are growing staph epidermidis and likely contaminant patient has no history of central lines. Her UA looks infected, urine culture sent. She has no leukocytosis, T-max 102, lactate 1.9. Covid testing negative. 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 monitor signs for meningitis, sacroiliitis Follow-up repeat BC negative so far - fevers resolved over last 48 hours Tylenol as needed for fevers IV fluids ID consult: CT abdomen pelvis, diverticulitis and splenic infarct, both likely related to brucellosis follow up CMV, EBV I have gained consent from patient and daughter after going over risk and benefits of MARY. Dr. Alfredo consulted and will see patient. However, if patient continues to improve without fevers we may not need to do MARY #Transaminitis likely due to brucellosis and fatty liver #Hypodense splenic lesions- likley due to brucellosis Continue to monitor LFTs GI consult: - repeat colonscopy in 8 weeks per recs Hepatitis panel negative Abdominal ultrasound- fatty liver follow up cmv, ebv #Hyponatremia-likely hypovolemic, continue monitor. IVF #Hypokalemia- replace prn #New onset DM II hba1c 7.1 insulin prn for now Metformin on discharge patient counselled on weight loss VTE prophylaxis: Heparin Diet: Regular CODE STATUS: Full code Dispo: possible discharge in a few days if patient continues to do better I spent 32 minutes on this encounter. 21 minutes spent on counseling and care coordination. Plan of care discussed with patient ID physician and GI physician. Time may of note may not reflect when patient was seen. Oz Christy D.O Sep 22, 2020 14:38
[2020-09-22 16:00] VITALS: BP 138/82
--- NOTE | 2020-09-22 17:34 | General Progress Note ---
Subjective Allergies: Coded Allergies: No Known Allergies (Unverified , 02/17/15) Subjective sitting in chair daughters x 2 at bedside c/o some nausea tolerating PO Objective Last 24 Hour Vital Signs Date Time Temp Pulse Resp B/P (MAP) Pulse Ox O2 Delivery O2 Flow Rate FiO2 09/22/20 16:00 97.7 78 18 138/82 (100) 97 09/22/20 12:00 97.5 88 18 153/90 (111) 98 09/22/20 09:00 Room Air 09/22/20 08:00 97.5 73 18 151/98 (115) 95 09/22/20 04:00 97.7 81 16 128/82 (97) 96 09/22/20 00:00 97.7 84 20 128/72 (90) 95 09/21/20 21:00 Room Air 09/21/20 20:00 97.7 79 20 128/79 (95) 97 Intake and Output0 09/21/20 09/22/20 19:00 07:00 Intake Total 710 ml 450 ml Balance 710 ml 450 ml Intake Oral 600 ml IV Total 110 ml 450 ml # Voids 3 2 Laboratory Tests 09/22/20 06:35: White Blood Count 4.1L, Red Blood Count 4.03L, Hemoglobin 12.6, Hematocrit 38.1, Mean Corpuscular Volume 95, Mean Corpuscular Hemoglobin 31.3H, Mean Corpuscular Hemoglobin Concent 33.2, Red Cell Distribution Width 12.3, Platelet Count 305, Mean Platelet Volume 4.9L, Neutrophils (%) (Auto) 45.3, Lymphocytes (%) (Auto) 44.3, Monocytes (%) (Auto) 9.3, Eosinophils (%) (Auto) 0.4, Basophils (%) (Auto) 0.8, Sodium Level 139, Potassium Level 3.3L, Chloride Level 105, Carbon Dioxide Level 26, Anion Gap 9, Blood Urea Nitrogen 4L, Creatinine 0.8, Estimat Glomerular Filtration Rate > 60, Glucose Level 129H, Calcium Level 8.7, Phosphorus Level 4.0, Magnesium Level 2.0, Total Bilirubin 0.4, Aspartate Amino Transf (AST/SGOT) 155H, Alanine Aminotransferase (ALT/SGPT) 106H, Alkaline Phosphatase 103, Total Protein 6.7, Albumin 2.6L, Globulin 4.1, Albumin/Globulin Ratio 0.6L Height (Feet): 5 Height (Inches): 8.00 Weight (Pounds): 180 Objective WDWN NCAT supple CTA RR abd soft NT ND no edema non-focal Assessment/Plan Status: stable Assessment/Plan: Assessment/Plan Problem List: (1) Transaminitis ICD Codes: R74.01 - Elevation of levels of liver transaminase levels SNOMED: 769177910, 860527754 (2) Bacteremia ICD Codes: R78.81 - Bacteremia SNOMED: 2363277 (3) Myalgia ICD Codes: M79.10 - Myalgia, unspecified site SNOMED: 25140112 (4) Fatigue ICD Codes: R53.83 - Other fatigue SNOMED: 44418576 Status: stable Assessment/Plan: elevated LFTS possibly due to sepsis and fatty liver abd us>>> reviewed repeat labs hepatitis panel>>> neg fu CMV and EBV>>>> neg positive blood cultures for Brucella fu ID recs on abx per ID needs out patient fu for colonoscopy in 8 weeks will fu Herbert Perkins MD Sep 22, 2020 17:34
[2020-09-22 20:00] VITALS: BP 153/94
[2020-09-22] MEDS: Gentamicin inj 360 MG in NS 110 ML IVPB SCH (20:00)
[2020-09-22] MEDS: Enoxaparin 40mg Inj SUBQ SCH (21:05)
[2020-09-23] VITALS: BP 137/94
[2020-09-23 04:00] VITALS: BP 131/81
[2020-09-23] MEDS: NovoLOG Insulin Flexpen SUBQ SCH ×4 (06:06→20:49)
[2020-09-23 07:46] LABS: BASOPHILS % (AUTO) 0.8 % (0.0-2.0); EOSINOPHILS % (AUTO) 0.8 % (0.0-3.0); HEMATOCRIT 40.7 % (37.0-47.0); HEMOGLOBIN 13.5 G/DL (12.0-16.0); MEAN CORPUSCULAR VOLUME 95 FL (80-99); MONOCYTES % (AUTO) 11.8 % (1.0-10.0); NEUTROPHILS % (AUTO) 43.6 % (45.0-75.0); PLATELET COUNT 308 K/UL (150-450); RED BLOOD COUNT 4.31 M/UL (4.20-5.40); RED CELL DISTRIBUTION WIDTH 12.3 % (11.6-14.8); WHITE BLOOD COUNT 4.1 K/UL (4.8-10.8)
[2020-09-23 08:00] VITALS: BP 146/102
[2020-09-23 08:06] LABS: ALANINE AMINOTRANSFERASE 131 U/L (12-78); ALBUMIN 2.9 G/DL (3.4-5.0); ALBUMIN/GLOBULIN RATIO 0.6 (1.0-2.7); ALKALINE PHOSPHATASE 111 U/L (46-116); ANION GAP 7 mmol/L (5-15); ASPARTATE AMINO TRANSFERASE 183 U/L (15-37); BILIRUBIN,TOTAL 0.5 MG/DL (0.2-1.0); BLOOD UREA NITROGEN 6 mg/dL (7-18); CALCIUM 8.8 MG/DL (8.5-10.1); CARBON DIOXIDE 28 MMOL/L (21-32); CHLORIDE 104 MMOL/L (98-107); CREATININE 0.9 MG/DL (0.55-1.30); POTASSIUM 3.7 MMOL/L (3.5-5.1); SODIUM 138 MMOL/L (136-145)
[2020-09-23] MEDS: Doxycycline Hyclate 100 MG in D5W 110 ML IV SCH ×2 (08:17→21:22)
--- NOTE | 2020-09-23 10:45 | General Progress Note ---
Subjective Constitutional: Denies: no symptoms, chills, diaphoresis, fever, malaise, weakness, other HEENT: Denies: no symptoms, eye pain, blurred vision, tearing, double vision, ear pain, ear discharge, nose pain, nose congestion, throat pain, throat swelling, mouth pain, mouth swelling, other Cardiovascular: Denies: no symptoms, chest pain, edema, irregular heart rate, lightheadedness, palpitations, syncope, other Respiratory: Denies: no symptoms, cough, orthopnea, shortness of breath, SOB with excertion, SOB at rest, sputum, stridor, wheezing, other Gastrointestinal/Abdominal: Denies: no symptoms, abdomen distended, abdominal pain, black stools, tarry stools, blood in stool, constipated, diarrhea, difficulty swallowing, nausea, poor appetite, poor fluid intake, rectal bleeding, vomiting, other Genitourinary: Denies: no symptoms, burning, discharge, frequency, flank pain, hematuria, incontinence, pain, urgency, other Neurologic/Psychiatric: Denies: no symptoms, anxiety, depressed, emotional problems, headache, numbness, paresthesia, pre-existing deficit, seizure, tingling, tremors, weakness, other Endocrine: Denies: no symptoms, excessive sweating, flushing, intolerance to cold, intolerance to heat, increased hunger, increased thirst, increased urine, unexplained weight gain, unexplained weight loss, other Hematologic/Lymphatic: Denies: no symptoms, anemia, easy bleeding, easy bruising, other Allergies: Coded Allergies: No Known Allergies (Unverified , 02/17/15) Subjective no acute events overnight. No fevers in last 72 hours. No complaints this morning. Sitting upright talking on phone. Objective Last 24 Hour Vital Signs Date Time Temp Pulse Resp B/P (MAP) Pulse Ox O2 Delivery O2 Flow Rate FiO2 09/23/20 09:00 Room Air 09/23/20 08:00 96.4 82 16 146/102 (117) 95 09/23/20 04:00 97.0 73 16 131/81 (98) 97 09/23/20 00:00 97.3 95 20 137/94 (108) 96 09/22/20 21:00 Room Air 09/22/20 20:00 97.8 91 20 153/94 (113) 97 09/22/20 16:00 97.7 78 18 138/82 (100) 97 09/22/20 12:00 97.5 88 18 153/90 (111) 98 Intake and Output 09/22/20 09/23/20 19:00 07:00 Intake Total 8075 ml 729 ml Balance 8075 ml 729 ml Intake Oral 240 ml 500 ml IV Total 7835 ml 229 ml # Voids 2 # Bowel Movements 1 Laboratory Tests 09/23/20 07:30: White Blood Count 4.1L, Red Blood Count 4.31, Hemoglobin 13.5, Hematocrit 40.7, Mean Corpuscular Volume 95, Mean Corpuscular Hemoglobin 31.3H, Mean Corpuscular Hemoglobin Concent 33.1, Red Cell Distribution Width 12.3, Platelet Count 308, Mean Platelet Volume 5.6L, Neutrophils (%) (Auto) 43.6L, Lymphocytes (%) (Auto) 43.0, Monocytes (%) (Auto) 11.8H, Eosinophils (%) (Auto) 0.8, Basophils (%) (Auto) 0.8, Sodium Level 138, Potassium Level 3.7, Chloride Level 104, Carbon Dioxide Level 28, Anion Gap 7, Blood Urea Nitrogen 6L, Creatinine 0.9, Estimat Glomerular Filtration Rate > 60, Glucose Level 126H, Calcium Level 8.8, Magnesium Level 2.2, Total Bilirubin 0.5, Aspartate Amino Transf (AST/SGOT) 183H , Alanine Aminotransferase (ALT/SGPT) 131H, Alkaline Phosphatase 111, Total Protein 7.9, Albumin 2.9L, Globulin 5.0, Albumin/Globulin Ratio 0.6L Height (Feet): 5 Height (Inches): 8.00 Weight (Pounds): 180 General Appearance: no apparent distress, alert, alert oriented x3 EENT: PERRL/EOMI Neck: non-tender, normal inspection Cardiovascular: normal rate, regular rhythm, no JVD Respiratory/Chest: lungs clear, normal breath sounds, no respiratory distress Abdomen: normal bowel sounds, non tender, soft Extremities: normal range of motion, non-tender Edema: no edema noted Arm (L), no edema noted Arm (R), no edema noted Leg (L), no edema noted Leg (R), no edema noted Pedal (L), no edema noted Pedal (R), no edema noted Generalized Neurologic: oven drier tender II-XII grossly normal, oriented x 3 Skin: normal pigmentation, warm/dry Assessment/Plan Status: stable Assessment/Plan: Previously healthy 60-year-old female presents to the hospital with undulant fe vers, chills, diaphoresis and myalgias. She has blood cultures 2 out of 2 bottles that are growing staph epidermidis and likely contaminant patient has no history of central lines. Her UA looks infected, urine culture sent. She has no leukocytosis, T-max 102, lactate 1.9. Covid testing negative. 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 monitor signs for meningitis, sacroiliitis Follow-up repeat BC negative so far - fevers resolved over last 72 hours Tylenol as needed for fevers IV fluids ID consult: CT abdomen pelvis, diverticulitis and splenic infarct, both likely related to brucellosis follow up CMV, EBV I have gained consent from patient and daughter after going over risk and benefits of MARY. Dr. Alfredo consulted and will see patient. However, if patient continues to improve without fevers we may not need to do MARY #Transaminitis likely due to brucellosis and fatty liver - worsening #Hypodense splenic lesions- likley due to brucellosis Continue to monitor LFTs GI consult: - repeat colonscopy in 8 weeks per recs Hepatitis panel negative Abdominal ultrasound- fatty liver follow up cmv, ebv #Hyponatremia-likely hypovolemic, continue monitor. IVF #Hypokalemia- replace prn #New onset DM II hba1c 7.1 insulin prn for now Metformin on discharge patient counselled on weight loss VTE prophylaxis: Heparin Diet: Regular CODE STATUS: Full code Dispo: possible discharge in a few days if patient continues to do better I spent 31 minutes on this encounter. 21 minutes spent on counseling and care coordination. Plan of care discussed with patient ID physician and GI physician. Time may of note may not reflect when patient was seen. Oz Christy D.O Sep 23, 2020 10:45
[2020-09-23 12:00] VITALS: BP 156/106
--- NOTE | 2020-09-23 13:11 | Infectious Diseases Prog Note ---
Assessment/Plan Assessment/Plan ASSESSMENT AND PLAN: 1. 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 No other significant past medical history. 3. Elevated LFTs and abdominal pain. GI is following. 4. COVID testing is negative. 5. IV fluids. 6. Case discussed with Dr. Chandra. 7. No known allergies. 8. Social history negative. 9. Family history noncontributory. 10. MAR was noted and reviewed 11. No known drug allergies. 12. Case was discussed with RN. 13. Case was discussed with Dr. Chandra. Subjective Constitutional: Denies: fever Respiratory: Denies: shortness of breath Cardiovascular: Denies: chest pain Gastrointestinal/Abdominal: Denies: nausea, vomiting, diarrhea Genitourinary: Reports: other - no mohan Neurologic: Denies: headache Psychiatric: Denies: depression Skin: Denies: rash Hematologic: Denies: bleeding Musculoskeletal: Denies: pain Allergies: Coded Allergies: No Known Allergies (Unverified , 02/17/15) Objective Last 24 Hour Vital Signs Date Time Temp Pulse Resp B/P (MAP) Pulse Ox O2 Delivery O2 Flow Rate FiO2 09/23/20 12:00 97.9 94 17 156/106 (123) 95 09/23/20 09:00 Room Air 09/23/20 08:00 96.4 82 16 146/102 (117) 95 09/23/20 04:00 97.0 73 16 131/81 (98) 97 09/23/20 00:00 97.3 95 20 137/94 (108) 96 09/22/20 21:00 Room Air 09/22/20 20:00 97.8 91 20 153/94 (113) 97 09/22/20 16:00 97.7 78 18 138/82 (100) 97 Height (Feet): 5 Height (Inches): 8.00 Weight (Pounds): 180 General Appearance: no acute distress HEENT: normocephalic, atraumatic, anicteric, mucous membranes moist Respiratory/Chest: lungs clear, normal breath sounds, no respiratory distress, no accessory muscle use Cardiovascular: normal rate, regular rhythm, no gallop/murmur, no JVD Abdomen: normal bowel sounds, soft, non tender, no organomegaly, non distended Genitourinary: other - no mohan Extremities: no cyanosis Skin: no rash Neurologic/Psychiatric: rv detailer II-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 Inferior splenic 2 cm and mid anterior splenic 1.6 x 0.2 cm hypodensities could represent splenic infarcts. 2. Minimal sigmoid colon wall thickening with possible minimal adjacent fat stranding is probably incidental, but could in the proper context represent minimal acute uncomplicated diverticulitis. 3. Otherwise no acute abnormality identified to account for patient presentation. TTE: <Conclusion> Technically difficulty study due to poor parasternal acoustical windows and pt's breathing. Normal left ventricular chamber size, systolic function and wall motion. Left ventricular ejection fraction estimated to be 60-65 %. No evidence of left ventricular hypertrophy. Small pericardial effusion along the free wall of RV. All other cardiac chamber sizes are within normal limits. Focal aortic valve sclerosis with adequate cusp excursion. Thickened mitral valve leaflets with normal excursion. Mitral annulus and aortic root calcification. Pulmonic valve not well visualized. Normal tricuspid valve structure. IVC at normal size with physiologic collapse. No discrete vegetations seen, however SBE may not be excluded by transthoracic 2-D echo. A color flow and spectral Doppler study was performed and revealed: No aortic regurgitation. Trace mitral regurgitation. Mitral inflow indicates normal left ventricular diastolic function. Trace tricuspid regurgitation. Tricuspid systolic velocities suggests peak right ventricular systolic pressure of 30 mmHg. No pulmonic regurgitation present. Chest x-ray - Procedure: XRAY Chest 1v Indication: Cough Technique: One view of the chest Comparison: 09/09/2020 Findings: Lungs and pleural spaces are clear. Heart size is normal. Impression: No acute process Microbiology Date/Time Source Procedure Growth Status 09/19/20 05:30 Blood Blood Culture - Preliminary NO GROWTH AFTER 72 HOURS Resulted 09/18/20 16:00 Stool Stool Culture - Final NO SALMONELLA,SHIGELLA,OR CAMPYLOBACT... Complete 09/17/20 12:35 Nasopharynx SARS-CoV-2 RdRp Gene Assay - Final Complete 09/13/20 16:40 Urine,Clean Catch Urine Culture - Final NO GROWTH AFTER 48 HOURS Complete Laboratory Tests Test 09/23/20 07:30 White Blood Count 4.1 K/UL (4.8-10.8) L Red Blood Count 4.31 M/UL (4.20-5.40) Hemoglobin 13.5 G/DL (12.0-16.0) Hematocrit 40.7 % (37.0-47.0) Mean Corpuscular Volume 95 FL (80-99) Mean Corpuscular Hemoglobin 31.3 PG (27.0-31.0) H Mean Corpuscular Hemoglobin Concent 33.1 G/DL (32.0-36.0) Red Cell Distribution Width 12.3 % (11.6-14.8) Platelet Count 308 K/UL (150-450) Mean Platelet Volume 5.6 FL (6.5-10.1) L Neutrophils (%) (Auto) 43.6 % (45.0-75.0) L Lymphocytes (%) (Auto) 43.0 % (20.0-45.0) Monocytes (%) (Auto) 11.8 % (1.0-10.0) H Eosinophils (%) (Auto) 0.8 % (0.0-3.0) Basophils (%) (Auto) 0.8 % (0.0-2.0) Sodium Level 138 MMOL/L (136-145) Potassium Level 3.7 MMOL/L (3.5-5.1) Chloride Level 104 MMOL/L (98-107) Carbon Dioxide Level 28 MMOL/L (21-32) Anion Gap 7 mmol/L (5-15) Blood Urea Nitrogen 6 mg/dL (7-18) L Creatinine 0.9 MG/DL (0.55-1.30) Estimat Glomerular Filtration Rate > 60 mL/min (>60) Glucose Level 126 MG/DL (74-106) H Calcium Level 8.8 MG/DL (8.5-10.1) Magnesium Level 2.2 MG/DL (1.8-2.4) Total Bilirubin 0.5 MG/DL (0.2-1.0) Aspartate Amino Transf (AST/SGOT) 183 U/L (15-37) H Alanine Aminotransferase (ALT/SGPT) 131 U/L (12-78) H Alkaline Phosphatase 111 U/L (46-116) Total Protein 7.9 G/DL (6.4-8.2) Albumin 2.9 G/DL (3.4-5.0) L Globulin 5.0 g/dL Albumin/Globulin Ratio 0.6 (1.0-2.7) L Current Medications Medications (Trade) Dose Ordered Sig/Ghassan Route PRN Reason Start Time Stop Time Status Last Admin Dose Admin Acetaminophen (Tylenol) 650 mg Q4H PRN ORAL Mild Pain (Pain Scale 1-3) 09/13/20 18:00 10/13/20 17:59 09/20/20 05:59 Acetaminophen (Tylenol) 650 mg Q4H PRN ORAL FEVER 09/14/20 10:15 10/14/20 10:14 09/21/20 01:23 Al Hydroxide/Mg Hydroxide (Mylanta II) 30 ml Q6H PRN ORAL dyspepsia 09/13/20 18:00 10/13/20 17:59 Benzonatate (Tessalon Perles) 100 mg TIDPRN PRN ORAL For Cough 09/18/20 14:30 10/18/20 14:29 09/18/20 14:47 Dextrose (Dextrose 50%) 25 ml Q30M PRN IV Hypoglycemia 09/16/20 12:30 12/15/20 12:29 Dextrose (Dextrose 50%) 50 ml Q30M PRN IV Hypoglycemia 09/16/20 12:30 12/15/20 12:29 Diphenhydramine HCl (Benadryl) 25 mg Q6H PRN ORAL Itching/Pruritis 09/13/20 18:00 10/13/20 17:59 Doxycycline Hyclate 100 mg/ Dextrose 110 ml @ 110 mls/hr Q12HR IV 09/17/20 21:00 09/24/20 20:59 09/23/20 08:17 Enoxaparin Sodium (Lovenox) 40 mg Q24H SUBQ 09/13/20 21:00 12/12/20 20:59 09/22/20 21:05 Gentamicin Protocol (Gentamicin pharmacy to dose) 1 ea DAILY PRN MISC per rx protocol 09/18/20 09:00 10/18/20 08:59 Gentamicin Sulfate 360 mg/ Sodium Chloride 119 ml @ 119 mls/hr Q24H IVPB 09/17/20 20:00 09/24/20 19:59 09/22/20 20:00 Guaifenesin (Robitussin) 100 mg Q4H PRN ORAL For Cough 09/16/20 13:30 12/15/20 13:29 09/21/20 01:16 Hydralazine HCl (Apresoline) 25 mg Q6H PRN ORAL For High Blood Pressure 09/18/20 14:30 12/17/20 14:29 Insulin Aspart (NovoLOG) BEFORE MEALS AND HS SUBQ 09/16/20 16:30 12/15/20 16:29 09/19/20 11:41 Magnesium Hydroxide (Mom) 30 ml HSPRN PRN ORAL Constipation 09/13/20 18:00 10/13/20 17:59 Nitroglycerin (Ntg) 0.4 mg Q5M X 3 DOSES PRN SL Prn Chest Pain 09/13/20 18:00 10/13/20 17:59 Ondansetron HCl (Zofran) 4 mg Q4H PRN IVP Nausea & Vomiting 09/15/20 17:26 10/15/20 17:25 Kaur Mazariegos MD Sep 23, 2020 13:11
[2020-09-23] MEDS ORDERED: Gentamicin Rx monitoring MISC PRN (13:15)
[2020-09-23 16:00] VITALS: BP 142/90
--- NOTE | 2020-09-23 18:19 | General Progress Note ---
Subjective Allergies: Coded Allergies: No Known Allergies (Unverified , 02/17/15) Subjective sitting in bed denies abd pain tolerating PO Objective Last 24 Hour Vital Signs Date Time Temp Pulse Resp B/P (MAP) Pulse Ox O2 Delivery O2 Flow Rate FiO2 09/23/20 16:00 97.9 87 18 142/90 (107) 97 09/23/20 12:00 97.9 94 17 156/106 (123) 95 09/23/20 09:00 Room Air 09/23/20 08:00 96.4 82 16 146/102 (117) 95 09/23/20 04:00 97.0 73 16 131/81 (98) 97 09/23/20 00:00 97.3 95 20 137/94 (108) 96 09/22/20 21:00 Room Air 09/22/20 20:00 97.8 91 20 153/94 (113) 97 Intake and Output 09/22/20 09/23/20 19:00 07:00 Intake Total 8075 ml 729 ml Balance 8075 ml 729 ml Intake Oral 240 ml 500 ml IV Total 7835 ml 229 ml # Voids 2 # Bowel Movements 1 Laboratory Tests 09/23/20 07:30: White Blood Count 4.1L, Red Blood Count 4.31, Hemoglobin 13.5, Hematocrit 40.7, Mean Corpuscular Volume 95, Mean Corpuscular Hemoglobin 31.3H, Mean Corpuscular Hemoglobin Concent 33.1, Red Cell Distribution Width 12.3, Platelet Count 308, Mean Platelet Volume 5.6L, Neutrophils (%) (Auto) 43.6L, Lymphocytes (%) (Auto) 43.0, Monocytes (%) (Auto) 11.8H, Eosinophils (%) (Auto) 0.8, Basophils (%) (Auto) 0.8, Sodium Level 138, Potassium Level 3.7, Chloride Level 104, Carbon Dioxide Level 28, Anion Gap 7, Blood Urea Nitrogen 6L, Creatinine 0.9, Estimat Glomerular Filtration Rate > 60, Glucose Level 126H, Calcium Level 8.8, Magnesium Level 2.2, Total Bilirubin 0.5, Aspartate Amino Transf (AST/SGOT) 183H , Alanine Aminotransferase (ALT/SGPT) 131H, Alkaline Phosphatase 111, Total Protein 7.9, Albumin 2.9L, Globulin 5.0, Albumin/Globulin Ratio 0.6L Height (Feet): 5 Height (Inches): 8.00 Weight (Pounds): 180 Objective WDWN NCAT supple CTA RR abd soft NT ND no edema non-focal Assessment/Plan Status: stable Assessment/Plan: Assessment/Plan Problem List: (1) Transaminitis ICD Codes: R74.01 - Elevation of levels of liver transaminase levels SNOMED: 315195696, 021415549 (2) Bacteremia ICD Codes: R78.81 - Bacteremia SNOMED: 2357151 (3) Myalgia ICD Codes: M79.10 - Myalgia, unspecified site SNOMED: 32758339 (4) Fatigue ICD Codes: R53.83 - Other fatigue SNOMED: 25040150 Status: stable Assessment/Plan: elevated LFTS possibly due to sepsis and fatty liver abd us>>> reviewed repeat labs hepatitis panel>>> neg fu CMV and EBV>>>> neg positive blood cultures for Brucella fu ID recs on abx per ID needs out patient fu for colonoscopy in 8 weeks will fu Herbert Perkins MD Sep 23, 2020 18:18
[2020-09-23 19:34] VITALS: BP 138/88
[2020-09-23] MEDS: Gentamicin inj 360 MG in NS 110 ML IVPB SCH (19:52)
[2020-09-23] MEDS: Enoxaparin 40mg Inj SUBQ SCH (20:56)
[2020-09-24 04:03] VITALS: BP 140/86
[2020-09-24] MEDS: NovoLOG Insulin Flexpen SUBQ SCH ×4 (05:55→20:57)
[2020-09-24 07:00] LABS: BASOPHILS % (AUTO) 1.3 % (0.0-2.0); EOSINOPHILS % (AUTO) 0.4 % (0.0-3.0); HEMATOCRIT 43.1 % (37.0-47.0); HEMOGLOBIN 14.1 G/DL (12.0-16.0); LYMPHOCYTES % (AUTO) 42.9 % (20.0-45.0); MEAN CORPUSCULAR VOLUME 94 FL (80-99); MONOCYTES % (AUTO) 11.5 % (1.0-10.0); NEUTROPHILS % (AUTO) 43.9 % (45.0-75.0); PLATELET COUNT 284 K/UL (150-450); RED BLOOD COUNT 4.58 M/UL (4.20-5.40); RED CELL DISTRIBUTION WIDTH 12.3 % (11.6-14.8); WHITE BLOOD COUNT 4.6 K/UL (4.8-10.8)
[2020-09-24 07:23] LABS: ALANINE AMINOTRANSFERASE 145 U/L (12-78); ALBUMIN/GLOBULIN RATIO 0.6 (1.0-2.7); ALKALINE PHOSPHATASE 104 U/L (46-116); ANION GAP 9 mmol/L (5-15); ASPARTATE AMINO TRANSFERASE 177 U/L (15-37); BILIRUBIN,TOTAL 0.5 MG/DL (0.2-1.0); BLOOD UREA NITROGEN 7 mg/dL (7-18); CALCIUM 8.8 MG/DL (8.5-10.1); CARBON DIOXIDE 25 MMOL/L (21-32); CHLORIDE 103 MMOL/L (98-107); CREATININE 0.8 MG/DL (0.55-1.30); POTASSIUM 3.9 MMOL/L (3.5-5.1); SODIUM 137 MMOL/L (136-145)
[2020-09-24 08:00] VITALS: BP 121/86
--- NOTE | 2020-09-24 08:43 | General Progress Note ---
Subjective ROS Limited/Unobtainable: No Allergies: Coded Allergies: No Known Allergies (Unverified , 02/17/15) Objective Last 24 Hour Vital Signs Date Time Temp Pulse Resp B/P (MAP) Pulse Ox O2 Delivery O2 Flow Rate FiO2 09/24/20 04:03 97.8 82 140/86 (104) 09/23/20 20:29 Room Air 09/23/20 19:34 98.0 86 16 138/88 (105) 97 09/23/20 16:00 97.9 87 18 142/90 (107) 97 09/23/20 12:00 97.9 94 17 156/106 (123) 95 09/23/20 09:00 Room Air Intake and Output 09/23/20 09/24/20 19:00 07:00 Intake Total 710 ml 569 ml Balance 710 ml 569 ml Intake Oral 600 ml 340 ml IV Total 110 ml 229 ml # Voids 3 3 Laboratory Tests 09/24/20 06:30: White Blood Count 4.6L, Red Blood Count 4.58, Hemoglobin 14.1, Hematocrit 43.1, Mean Corpuscular Volume 94, Mean Corpuscular Hemoglobin 30.9, Mean Corpuscular Hemoglobin Concent 32.8, Red Cell Distribution Width 12.3, Platelet Count 284, Mean Platelet Volume 5.8L, Neutrophils (%) (Auto) 43.9L, Lymphocytes (%) (Auto) 42.9, Monocytes (%) (Auto) 11.5H, Eosinophils (%) (Auto) 0.4, Basophils (%) (Auto) 1.3, Sodium Level 137, Potassium Level 3.9, Chloride Level 103, Carbon Dioxide Level 25, Anion Gap 9, Blood Urea Nitrogen 7, Creatinine 0.8, Estimat Glomerular Filtration Rate > 60, Glucose Level 130H, Calcium Level 8.8, Magnesium Level 2.2, Total Bilirubin 0.5, Aspartate Amino Transf (AST/SGOT) 177H , Alanine Aminotransferase (ALT/SGPT) 145H, Alkaline Phosphatase 104, Total Protein 8.0, Albumin 3.0L, Globulin 5.0, Albumin/Globulin Ratio 0.6L Height (Feet): 5 Height (Inches): 8.00 Weight (Pounds): 180 General Appearance: no apparent distress EENT: normal ENT inspection Neck: supple Cardiovascular: normal rate Respiratory/Chest: decreased breath sounds Abdomen: normal bowel sounds, non tender, soft Extremities: non-tender Assessment/Plan Problem List: (1) Transaminitis ICD Codes: R74.01 - Elevation of levels of liver transaminase levels SNOMED: 762506688, 531054114 (2) Bacteremia ICD Codes: R78.81 - Bacteremia SNOMED: 9157815 (3) Myalgia ICD Codes: M79.10 - Myalgia, unspecified site SNOMED: 56547288 (4) Fatigue ICD Codes: R53.83 - Other fatigue SNOMED: 29590131 Status: stable Assessment/Plan: elevated LFTS possibly due to sepsis and fatty liver abd us>>> reviewed repeat labs hepatitis panel>>> neg fu CMV and EBV>>>> neg positive blood cultures for Brucella fu ID recs on abx per ID diverticulitis needs out patient fu for colonoscopy in 8 weeks will fu Louis Gerard MD Sep 24, 2020 08:43
[2020-09-24] MEDS: Doxycycline Hyclate 100 MG in D5W 110 ML IV SCH ×2 (11:02→20:56)
[2020-09-24 12:00] VITALS: BP 146/88
--- NOTE | 2020-09-24 15:48 | General Progress Note ---
Subjective Constitutional: Denies: no symptoms, chills, diaphoresis, fever, malaise, weakness, other HEENT: Denies: no symptoms, eye pain, blurred vision, tearing, double vision, ear pain, ear discharge, nose pain, nose congestion, throat pain, throat swelling, mouth pain, mouth swelling, other Cardiovascular: Denies: no symptoms, chest pain, edema, irregular heart rate, lightheadedness, palpitations, syncope, other Respiratory: Denies: no symptoms, cough, orthopnea, shortness of breath, SOB with excertion, SOB at rest, sputum, stridor, wheezing, other Gastrointestinal/Abdominal: Denies: no symptoms, abdomen distended, abdominal pain, black stools, tarry stools, blood in stool, constipated, diarrhea, difficulty swallowing, nausea, poor appetite, poor fluid intake, rectal bleeding, vomiting, other Genitourinary: Denies: no symptoms, burning, discharge, frequency, flank pain, hematuria, incontinence, pain, urgency, other Neurologic/Psychiatric: Denies: no symptoms, anxiety, depressed, emotional problems, headache, numbness, paresthesia, pre-existing deficit, seizure, tingling, tremors, weakness, other Endocrine: Denies: no symptoms, excessive sweating, flushing, intolerance to cold, intolerance to heat, increased hunger, increased thirst, increased urine, unexplained weight gain, unexplained weight loss, other Hematologic/Lymphatic: Denies: no symptoms, anemia, easy bleeding, easy bruising, other Allergies: Coded Allergies: No Known Allergies (Unverified , 02/17/15) Subjective no acute events overnight. No fevers. No complaints this morning. Wants to go home and now refusing MARY. Objective Last 24 Hour Vital Signs Date Time Temp Pulse Resp B/P (MAP) Pulse Ox O2 Delivery O2 Flow Rate FiO2 09/24/20 12:00 97.0 89 18 146/88 (107) 97 09/24/20 09:00 Room Air 09/24/20 08:00 97.8 82 18 121/86 (98) 94 09/24/20 04:03 97.8 82 140/86 (104) 09/23/20 20:29 Room Air 09/23/20 19:34 98.0 86 16 138/88 (105) 97 09/23/20 16:00 97.9 87 18 142/90 (107) 97 Intake and Output 09/23/20 09/24/20 19:00 07:00 Intake Total 710 ml 569 ml Balance 710 ml 569 ml Intake Oral 600 ml 340 ml IV Total 110 ml 229 ml # Voids 3 3 Laboratory Tests 09/24/20 06:30: White Blood Count 4.6L, Red Blood Count 4.58, Hemoglobin 14.1, Hematocrit 43.1, Mean Corpuscular Volume 94, Mean Corpuscular Hemoglobin 30.9, Mean Corpuscular Hemoglobin Concent 32.8, Red Cell Distribution Width 12.3, Platelet Count 284, Mean Platelet Volume 5.8L, Neutrophils (%) (Auto) 43.9L, Lymphocytes (%) (Auto) 42.9, Monocytes (%) (Auto) 11.5H, Eosinophils (%) (Auto) 0.4, Basophils (%) (Auto) 1.3, Sodium Level 137, Potassium Level 3.9, Chloride Level 103, Carbon Dioxide Level 25, Anion Gap 9, Blood Urea Nitrogen 7, Creatinine 0.8, Estimat Glomerular Filtration Rate > 60, Glucose Level 130H, Calcium Level 8.8, Magnesium Level 2.2, Total Bilirubin 0.5, Aspartate Amino Transf (AST/SGOT) 177H , Alanine Aminotransferase (ALT/SGPT) 145H, Alkaline Phosphatase 104, Total Protein 8.0, Albumin 3.0L, Globulin 5.0, Albumin/Globulin Ratio 0.6L Height (Feet): 5 Height (Inches): 8.00 Weight (Pounds): 180 General Appearance: no apparent distress, alert, alert oriented x3 EENT: PERRL/EOMI Neck: non-tender, normal alignment Cardiovascular: normal rate, regular rhythm, no JVD Respiratory/Chest: lungs clear, normal breath sounds, no respiratory distress Abdomen: normal bowel sounds, non tender, soft Extremities: normal range of motion, non-tender Edema: no edema noted Arm (L), no edema noted Arm (R), no edema noted Leg (L), no edema noted Leg (R), no edema noted Pedal (L), no edema noted Pedal (R), no edema noted Generalized Neurologic: green coffee blender II-XII grossly normal, 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 She has blood cultures 2 out of 2 bottles that are growing staph epidermidis and likely contaminant patient has no history of central lines. Her UA looks infected, urine culture sent. She has no leukocytosis, T-max 102, lactate 1.9. Covid testing negative. 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 monitor signs for meningitis, sacroiliitis Repeat BC positive 1/2 gram neg cocci - fevers resolved over last 72 hours Tylenol as needed for fevers IV fluids ID consult: CT abdomen pelvis, diverticulitis and splenic infarct, both likely related to brucellosis follow up CMV, EBV I have gained consent from patient and daughter after going over risk and benefits of MARY. Dr. Alfredo consulted and will see patient. Patient now refusing MARY and although medically doing better, 1/2 BC are still growing gram neg cocci. I discussed this with Dr. Mcmillan and recommend that we still r/o endocarditis because of this. Should she refuse she will have to leave AMA. I discussed with nurse as well. #Transaminitis likely due to brucellosis and fatty liver - stable #Hypodense splenic lesions- likley due to brucellosis Continue to monitor LFTs GI consult: - repeat colonscopy in 8 weeks per recs Hepatitis panel negative Abdominal ultrasound- fatty liver #New onset DM II hba1c 7.1 insulin prn for now Metformin on discharge patient counselled on weight loss VTE prophylaxis: Heparin Diet: Regular CODE STATUS: Full code Dispo: persistent bacteremia, need MARY to officially r/o endocarditics before s afe discharge I spent 31 minutes on this encounter. 21 minutes spent on counseling and care coordination. Plan of care discussed with patient ID physician and GI physician. Time may of note may not reflect when patient was seen. Oz Christy D.O Sep 24, 2020 15:48
[2020-09-24 16:00] VITALS: BP 138/93
--- NOTE | 2020-09-24 19:02 | Cardiology Progress Note ---
Assessment/Plan Assessment/Plan pt was to thave tracey tomorrow origianlly but she declined tod ayso the test was cancelled but he has now changed her mind and wishes to have the proceedure done the risk and possible complication of valerie procedure with d/w pt she has lost her iv access she will need a full working iv acces for tracey and we have to see if her spot is rosibel or nto for the tracey if those condition are satisfied then isi gustafson tracey tomorrow Objective Last 24 Hour Vital Signs Date Time Temp Pulse Resp B/P (MAP) Pulse Ox O2 Delivery O2 Flow Rate FiO2 09/24/20 16:00 97.3 99 20 138/93 (108) 95 09/24/20 12:00 97.0 89 18 146/88 (107) 97 09/24/20 09:00 Room Air 09/24/20 08:00 97.8 82 18 121/86 (98) 94 09/24/20 04:03 97.8 82 140/86 (104) 09/23/20 20:29 Room Air 09/23/20 19:34 98.0 86 16 138/88 (105) 97 Intake and Output 09/23/20 09/24/20 19:00 07:00 Intake Total 710 ml 569 ml Balance 710 ml 569 ml Intake Oral 600 ml 340 ml IV Total 110 ml 229 ml # Voids 3 3 Laboratory Tests Test 09/24/20 06:30 White Blood Count 4.6 K/UL (4.8-10.8) L Red Blood Count 4.58 M/UL (4.20-5.40) Hemoglobin 14.1 G/DL (12.0-16.0) Hematocrit 43.1 % (37.0-47.0) Mean Corpuscular Volume 94 FL (80-99) Mean Corpuscular Hemoglobin 30.9 PG (27.0-31.0) Mean Corpuscular Hemoglobin Concent 32.8 G/DL (32.0-36.0) Red Cell Distribution Width 12.3 % (11.6-14.8) Platelet Count 284 K/UL (150-450) Mean Platelet Volume 5.8 FL (6.5-10.1) L Neutrophils (%) (Auto) 43.9 % (45.0-75.0) L Lymphocytes (%) (Auto) 42.9 % (20.0-45.0) Monocytes (%) (Auto) 11.5 % (1.0-10.0) H Eosinophils (%) (Auto) 0.4 % (0.0-3.0) Basophils (%) (Auto) 1.3 % (0.0-2.0) Sodium Level 137 MMOL/L (136-145) Potassium Level 3.9 MMOL/L (3.5-5.1) Chloride Level 103 MMOL/L (98-107) Carbon Dioxide Level 25 MMOL/L (21-32) Anion Gap 9 mmol/L (5-15) Blood Urea Nitrogen 7 mg/dL (7-18) Creatinine 0.8 MG/DL (0.55-1.30) Estimat Glomerular Filtration Rate > 60 mL/min (>60) Glucose Level 130 MG/DL (74-106) H Calcium Level 8.8 MG/DL (8.5-10.1) Magnesium Level 2.2 MG/DL (1.8-2.4) Total Bilirubin 0.5 MG/DL (0.2-1.0) Aspartate Amino Transf (AST/SGOT) 177 U/L (15-37) H Alanine Aminotransferase (ALT/SGPT) 145 U/L (12-78) H Alkaline Phosphatase 104 U/L (46-116) Total Protein 8.0 G/DL (6.4-8.2) Albumin 3.0 G/DL (3.4-5.0) L Globulin 5.0 g/dL Albumin/Globulin Ratio 0.6 (1.0-2.7) L Dandy Alfredo MD Sep 24, 2020 19:02
[2020-09-24 19:45] VITALS: BP 146/85
[2020-09-24] MEDS: Gentamicin inj 360 MG in NS 110 ML IVPB SCH (19:54)
[2020-09-24] MEDS: Enoxaparin 40mg Inj SUBQ SCH (20:56)
[2020-09-25] VITALS (10 sets, daily range): BP systolic 124–147; BP diastolic 83–96
[2020-09-25] MEDS: NovoLOG Insulin Flexpen SUBQ SCH ×3 (05:56→16:30)
[2020-09-25 06:51] LABS: BASOPHILS % (AUTO) 1.3 % (0.0-2.0); EOSINOPHILS % (AUTO) 0.9 % (0.0-3.0); HEMATOCRIT 44.3 % (37.0-47.0); HEMOGLOBIN 14.9 G/DL (12.0-16.0); MEAN CORPUSCULAR VOLUME 94 FL (80-99); MONOCYTES % (AUTO) 11.4 % (1.0-10.0); NEUTROPHILS % (AUTO) 45.5 % (45.0-75.0); PLATELET COUNT 268 K/UL (150-450); RED BLOOD COUNT 4.74 M/UL (4.20-5.40); RED CELL DISTRIBUTION WIDTH 12.1 % (11.6-14.8); WHITE BLOOD COUNT 5.3 K/UL (4.8-10.8)
[2020-09-25 07:15] LABS: ALBUMIN 3.1 G/DL (3.4-5.0); ALBUMIN/GLOBULIN RATIO 0.6 (1.0-2.7); BILIRUBIN,TOTAL 0.6 MG/DL (0.2-1.0); POTASSIUM 3.9 MMOL/L (3.5-5.1)
--- NOTE | 2020-09-25 07:53 | General Progress Note ---
Subjective ROS Limited/Unobtainable: Yes Allergies: Coded Allergies: No Known Allergies (Unverified , 02/17/15) Objective Last 24 Hour Vital Signs Date Time Temp Pulse Resp B/P (MAP) Pulse Ox O2 Delivery O2 Flow Rate FiO2 09/25/20 04:00 98.0 82 16 124/83 (97) 95 09/24/20 20:30 Room Air 09/24/20 19:45 97.7 100 18 146/85 (105) 96 09/24/20 16:00 97.3 99 20 138/93 (108) 95 09/24/20 12:00 97.0 89 18 146/88 (107) 97 09/24/20 09:00 Room Air 09/24/20 08:00 97.8 82 18 121/86 (98) 94 l Intake and Output 09/24/20 09/25/20 19:00 07:00 Intake Total 720 ml 529 ml Balance 720 ml 529 ml Intake Oral 720 ml 300 ml IV Total 229 ml # Voids 2 2 Laboratory Tests 09/25/20 05:45: White Blood Count 5.3, Red Blood Count 4.74, Hemoglobin 14.9, Hematocrit 44.3, Mean Corpuscular Volume 94, Mean Corpuscular Hemoglobin 31.5H, Mean Corpuscular Hemoglobin Concent 33.6, Red Cell Distribution Width 12.1, Platelet Count 268, Mean Platelet Volume 5.2L, Neutrophils (%) (Auto) 45.5, Lymphocytes (%) (Auto) 41.0, Monocytes (%) (Auto) 11.4H, Eosinophils (%) (Auto) 0.9, Basophils (%) (Auto) 1.3, Sodium Level 139, Potassium Level 3.9, Chloride Level 104, Carbon Dioxide Level 27, Anion Gap 8, Blood Urea Nitrogen 8, Creatinine 1.0, Estimat Glomerular Filtration Rate 56.8, Glucose Level 130H, Calcium Level 9.0, Magnesium Level 2.2, Total Bilirubin 0.6, Aspartate Amino Transf (AST/SGOT) 154H , Alanine Aminotransferase (ALT/SGPT) 155H, Alkaline Phosphatase 104, Total Protein 8.3H, Albumin 3.1L, Globulin 5.2, Albumin/Globulin Ratio 0.6L Height (Feet): 5 Height (Inches): 8.00 Weight (Pounds): 180 General Appearance: alert EENT: normal ENT inspection Neck: supple Cardiovascular: normal rate Respiratory/Chest: lungs clear Abdomen: normal bowel sounds, non tender, soft Extremities: non-tender Assessment/Plan Problem List: (1) Transaminitis ICD Codes: R74.01 - Elevation of levels of liver transaminase levels SNOMED: 844167127, 902874608 (2) Bacteremia ICD Codes: R78.81 - Bacteremia SNOMED: 3767701 (3) Myalgia ICD Codes: M79.10 - Myalgia, unspecified site SNOMED: 63789455 (4) Fatigue ICD Codes: R53.83 - Other fatigue SNOMED: 33509853 Status: stable Assessment/Plan: elevated LFTS possibly due to sepsis and fatty liver abd us>>> reviewed repeat labs hepatitis panel>>> neg fu CMV and EBV>>>> neg positive blood cultures for Brucella fu ID recs pending MARY diverticulitis needs out patient fu for colonoscopy in 8 weeks will fu Louis Gerard MD Sep 25, 2020 07:53
[2020-09-25] MEDS: Doxycycline Hyclate 100 MG in D5W 110 ML IV SCH (08:13)
--- NOTE | 2020-09-25 10:18 | Anethesia Preoperative Eval ---
Anesthesia Pre-op PMH/ROS General Date of Evaluation: Sep 25, 2020 Time of Evaluation: 10:15 Anesthesiologist: Susan ASA Score: ASA 2 Mallampati Score Class I : Soft palate, uvula, fauces, pillars visible Class II: Soft palate, uvula, fauces visible Class III: Soft palate, base of uvula visible Class IV: Only hard plate visible Mallampati Classification: Class II Surgeon: Melanie Diagnosis: Bacteremia Surgical Procedure: MARY Anesthesia History: none Family History: no anesthesia problems Allergies: Coded Allergies: No Known Allergies (Unverified , 02/17/15) Medications: see eMAR Patient NPO?: Yes Past Medical History Cardiovascular: Denies: HTN, CAD, [place], valve dz, arrhythmia, other Pulmonary: Denies: asthma, COPD, CHRISTELLE, other Gastrointestinal/Genitourinary: Reports: GERD - mild; Denies: CRI, ESRD, other Neurologic/Psychiatric: Denies: dementia, CVA, depression/anxiety, TIA, other Endocrine: Denies: DM, hypothyroidism, steroids, other HEENT: Denies: cataract (L), cataract (R), glaucoma, ALATNA (L), ALATNA (R), other Hematology/Immune: Reports: anemia - mild; Denies: DVT, bleeding disorder, other Musculoskeletal/Integumentary: Denies: OA, RA, DJD, DDD, edema, other PMH Narrative: as above admitted for intermittent fever, blood cultures positive for Brucellosis PSxH Narrative: see H&P Anesthesia Pre-op Phys. Exam Physician Exam Last Vital Signs Date Time Temp Pulse Resp B/P (MAP) Pulse Ox O2 Delivery O2 Flow Rate FiO2 09/25/20 04:00 98.0 82 16 124/83 (97) 95 09/24/20 20:30 Room Air 09/16/20 20:14 21 Constitutional: NAD Neurologic: CN 2-12 intact Cardiovascular: RRR, no M/R/G Respiratory: CTA Gastrointestinal: S/NT/ND Airway Exam Mallampati Score: Class II MO: full Neck: flexible ROM: full Teeth: missing Dentures: no upper, no lower Anesthesia Pre-op A/P Labs Hematology Test 09/25/20 05:45 White Blood Count 5.3 K/UL (4.8-10.8) Red Blood Count 4.74 M/UL (4.20-5.40) Hemoglobin 14.9 G/DL (12.0-16.0) Hematocrit 44.3 % (37.0-47.0) Mean Corpuscular Volume 94 FL (80-99) Mean Corpuscular Hemoglobin 31.5 PG (27.0-31.0) H Mean Corpuscular Hemoglobin Concent 33.6 G/DL (32.0-36.0) Red Cell Distribution Width 12.1 % (11.6-14.8) Platelet Count 268 K/UL (150-450) Mean Platelet Volume 5.2 FL (6.5-10.1) L Neutrophils (%) (Auto) 45.5 % (45.0-75.0) Lymphocytes (%) (Auto) 41.0 % (20.0-45.0) Monocytes (%) (Auto) 11.4 % (1.0-10.0) H Eosinophils (%) (Auto) 0.9 % (0.0-3.0) Basophils (%) (Auto) 1.3 % (0.0-2.0) Chemistry Test 09/25/20 05:45 Sodium Level 139 MMOL/L (136-145) Potassium Level 3.9 MMOL/L (3.5-5.1) Chloride Level 104 MMOL/L (98-107) Carbon Dioxide Level 27 MMOL/L (21-32) Anion Gap 8 mmol/L (5-15) Blood Urea Nitrogen 8 mg/dL (7-18) Creatinine 1.0 MG/DL (0.55-1.30) Estimat Glomerular Filtration Rate 56.8 mL/min (>60) Glucose Level 130 MG/DL (74-106) H Calcium Level 9.0 MG/DL (8.5-10.1) Magnesium Level 2.2 MG/DL (1.8-2.4) Total Bilirubin 0.6 MG/DL (0.2-1.0) Aspartate Amino Transf (AST/SGOT) 154 U/L (15-37) H Alanine Aminotransferase (ALT/SGPT) 155 U/L (12-78) H Alkaline Phosphatase 104 U/L (46-116) Total Protein 8.3 G/DL (6.4-8.2) H Albumin 3.1 G/DL (3.4-5.0) L Globulin 5.2 g/dL Albumin/Globulin Ratio 0.6 (1.0-2.7) L Studies Pre-op Studies: EKG - SR, echo - EF 60-65% Risk Assessment & Plan Assessment: ASA 2 Plan: MAC Status Change Before Surgery: No Pre-Antibiotics Drug: as scheduled Asher Davis MD Sep 25, 2020 10:18
[2020-09-25] MEDS ORDERED: fentaNYL 100 mcg/2 mL IV ONE (10:50)
[2020-09-25] MEDS ORDERED: Midazolam 2mg/2ml Inj ONE (10:50)
--- NOTE | 2020-09-25 11:47 | Pre-Procedure Note/Attestation ---
Pre-Procedure Note/Attestation Complete Prior to Procedure Procedure Narrative: transesophagela eccho Indications for Procedure Pre-Operative Diagnosis: bacteremia Attestation I attest that I discussed the nature of the procedure; its benefits; risks and complications; and alternatives (and the risks and benefits of such alternatives), prior to the procedure, with the patient (or the patient's legal direct customer service representative). I attest that, if there was a reasonable possibility of needing a blood transfusion, the patient (or the patient's legal direct customer service representative) was given the [facility] standardized written summary, pursuant to the Serge Callum Blood Safety Act ([place] Health and Safety Code # 1645, as amended). I attest that I re-evaluated the patient just prior to the surgery and that there has been no change in the patient's H&P, except as documented below: Dandy Alfredo MD Sep 25, 2020 11:47
--- NOTE | 2020-09-25 11:49 | Brief Operative Note ---
Immediate Post Operative Note Operative Note Chief Complaint: weakness Pre-op Diagnosis: bacteremia Procedure: transesophageal echo Post-op Diagnosis: bacteremia Post-op Diagnosis: same as pre-op Findings: consistent w/pre-op dx studies - n, other - no evidence for vegatation to the extent visualized Surgeon: camila Anesthesiologist: anesthesiologiost Anesthesia: moderate sedation Specimen: none Complications: none Condition: stable Fluids: none Estimated Blood Loss: none Drains: none Implant(s) used?: No Dandy Alfredo MD Sep 25, 2020 11:49
--- NOTE | 2020-09-25 11:52 | General Progress Note ---
Subjective Date patient seen: Sep 25, 2020 ROS Limited/Unobtainable: No Constitutional: Denies: no symptoms, chills, diaphoresis, fever, malaise, weakness, other HEENT: Denies: no symptoms, eye pain, blurred vision, tearing, double vision, ear pain, ear discharge, nose pain, nose congestion, throat pain, throat swelling, mouth pain, mouth swelling, other Cardiovascular: Denies: no symptoms, chest pain, edema, irregular heart rate, lightheadedness, palpitations, syncope, other Respiratory: Denies: no symptoms, cough, orthopnea, shortness of breath, SOB with excertion, SOB at rest, sputum, stridor, wheezing, other Gastrointestinal/Abdominal: Denies: no symptoms, abdomen distended, abdominal pain, black stools, tarry stools, blood in stool, constipated, diarrhea, difficulty swallowing, nausea, poor appetite, poor fluid intake, rectal bleeding, vomiting, other Genitourinary: Denies: no symptoms, burning, discharge, frequency, flank pain, hematuria, incontinence, pain, urgency, other Neurologic/Psychiatric: Denies: no symptoms, anxiety, depressed, emotional p roblems, headache, numbness, paresthesia, pre-existing deficit, seizure, tingling, tremors, weakness, other Endocrine: Denies: no symptoms, excessive sweating, flushing, intolerance to cold, intolerance to heat, increased hunger, increased thirst, increased urine, unexplained weight gain, unexplained weight loss, other Allergies: Coded Allergies: No Known Allergies (Unverified , 02/17/15) Subjective resting in bed comfortably without any symptoms. Objective Last 24 Hour Vital Signs Date Time Temp Pulse Resp B/P (MAP) Pulse Ox O2 Delivery O2 Flow Rate FiO2 09/25/20 09:00 Room Air 09/25/20 08:00 98.1 98 20 128/91 (103) 95 09/25/20 04:00 98.0 82 16 124/83 (97) 95 09/24/20 20:30 Room Air 09/24/20 19:45 97.7 100 18 146/85 (105) 96 09/24/20 16:00 97.3 99 20 138/93 (108) 95 09/24/20 12:00 97.0 89 18 146/88 (107) 97 Intake and Output 0 09/24/20 09/25/20 19:00 07:00 Intake Total 720 ml 529 ml Balance 720 ml 529 ml Intake Oral 720 ml 300 ml IV Total 229 ml # Voids 2 2 Laboratory Tests 09/25/20 05:45: White Blood Count 5.3, Red Blood Count 4.74, Hemoglobin 14.9, Hematocrit 44.3, Mean Corpuscular Volume 94, Mean Corpuscular Hemoglobin 31.5H, Mean Corpuscular Hemoglobin Concent 33.6, Red Cell Distribution Width 12.1, Platelet Count 268, Mean Platelet Volume 5.2L, Neutrophils (%) (Auto) 45.5, Lymphocytes (%) (Auto) 41.0, Monocytes (%) (Auto) 11.4H, Eosinophils (%) (Auto) 0.9, Basophils (%) (Auto) 1.3, Sodium Level 139, Potassium Level 3.9, Chloride Level 104, Carbon Dioxide Level 27, Anion Gap 8, Blood Urea Nitrogen 8, Creatinine 1.0, Estimat Glomerular Filtration Rate 56.8, Glucose Level 130H, Calcium Level 9.0, Magnesium Level 2.2, Total Bilirubin 0.6, Aspartate Amino Transf (AST/SGOT) 154H , Alanine Aminotransferase (ALT/SGPT) 155H, Alkaline Phosphatase 104, Total Protein 8.3H, Albumin 3.1L, Globulin 5.2, Albumin/Globulin Ratio 0.6L Height (Feet): 5 Height (Inches): 8.00 Weight (Pounds): 190 General Appearance: no apparent distress, alert EENT: PERRL/EOMI Neck: supple Cardiovascular: normal rate, regular rhythm Respiratory/Chest: lungs clear, normal breath sounds, no respiratory distress Abdomen: non tender, soft Edema: non-pitting Neurologic: alert, oriented x 3 Assessment/Plan Problem List: (1) Bacteremia ICD Codes: R78.81 - Bacteremia SNOMED: 8352716 (2) Pyelonephritis ICD Codes: N12 - Tubulo-interstitial nephritis, not specified as acute or chronic SNOMED: 16040283 (3) UTI (urinary tract infection) ICD Codes: N39.0 - Urinary tract infection, site not specified SNOMED: 34803719, 264231804 (4) Diabetes mellitus ICD Codes: E11.9 - Type 2 diabetes mellitus without complications SNOMED: 48410346 (5) Brucellosis ICD Codes: A23.9 - Brucellosis, unspecified SNOMED: 19402201 (6) Sepsis ICD Codes: A41.9 - Sepsis, unspecified organism SNOMED: 46114750 Status: stable Assessment/Plan: Previously healthy 60-year-old female presents to the hospital with undulant fevers, chills, diaphoresis and myalgias. She has blood cultures 2 out of 2 bottles that are growing staph epidermidis and likely contaminant patient has no history of central lines. Her UA looks infected, urine culture sent. She has no leukocytosis, T-max 102, lactate 1.9. Covid testing negative. 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 monitor signs for meningitis, sacroiliitis Repeat BC positive 1/2 gram neg cocci (09/19/20) Tylenol as needed for fevers IV fluids ID consult: Continue IV doxycycline, gentamycin. can be d/c'ed on PO doxycycline x 5 weeks, per ID CT abdomen pelvis, diverticulitis and splenic infarct, both likely related to brucellosis follow up CMV, EBV MARY today to rule out IE given repeat BC'x still +. #Transaminitis likely due to brucellosis and fatty liver - stable #Hypodense splenic lesions- likley due to brucellosis Continue to monitor LFTs GI consult: - repeat colonscopy in 8 weeks per recs Hepatitis panel negative Abdominal ultrasound- fatty liver #New onset DM II hba1c 7.1 insulin prn for now Metformin on discharge patient counselled on weight loss VTE prophylaxis: Heparin Diet: Regular CODE STATUS: Full code Dispo: persistent bacteremia, need MARY to officially r/o endocarditics before safe discharge Spent extra 34 mins on review of relevant medical record, including labs, imaging, medications and data governance consultant/clinician documentation. Time may of note may not reflect when patient was seen. Mati Archibald MD Sep 25, 2020 11:52
--- NOTE | 2020-09-25 11:53 | Immediate Post-Op Evaluation ---
Immediate Post-Op Evalulation Immediate Post-Op Evalulation Procedure: MARY Date of Evaluation: Sep 25, 2020 Time of Evaluation: 11:52 IV Fluids: 200 Blood Products: none Estimated Blood Loss: none Urinary Output: none Blood Pressure Systolic: 144 Blood Pressure Diastolic: 86 Pulse Rate: 92 Respiratory Rate: 20 O2 Sat by Pulse Oximetry: 99 Temperature (Fahrenheit): 97.8 Pain Score (1-10): 1 Nausea: No Vomiting: No Complications none Patient Status: reacts, patent, none Hydration Status: adequate Asher Davis MD Sep 25, 2020 11:53
[2020-09-25] MEDS ORDERED: DOXYCYCLINE MO100 MG ORAL (12:12)
[2020-09-25] MEDS ORDERED: METFORMIN HCL500 M1 ORAL (12:16)
--- NOTE | 2020-09-25 12:19 | Discharge Summary ---
Discharge Summary Hospital Course Date of Admission Sep 13, 2020 at 17:07 Date of Discharge 09/25/2020 Admitting Diagnosis bacteremia LEIGHA Mayen is a 60 year old female who was admitted on Sep 13, 2020 at 17:07 for Bacteremia Consultations ID, cardiology, GI Procedures MARY Hospital Course Previously healthy 60-year-old female presents to the hospital with undulant fevers, chills, diaphoresis and myalgias. 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 was started on IV doxycyline and gentamycin with resolution of her symptoms. given persistently + BCx's, MARY was done (TTE was previously neg for vegetations) on 09/25, which was negative. GI consulted for transaminitis, but was deemed due to fatty liver and brucellosis. hepatitis panel was neg. she was newly diagnosed with DM2 (a1c 7.1). she is being d/c'ed home today in good condition with doxycycline x 5 weeks (for 6 week course) and metformin 500 BID as new medications. Spent extra 34 mins on review of relevant medical record, including labs, imaging, medications and it infrastructure consultant/clinician documentation. Time may of note may not reflect when patient was seen. Discharge Medications New Medications: Doxycycline Monohydrate* (Doxycycline Monohydrate*) 100 Mg Capsule 100 MG ORAL Q12H, #70 CAP 0 Refills Take 1 tablet twice daily for 5 weeks. Metformin Hcl* (Metformin Hcl*) 500 Mg Tablet 500 MG ORAL TWICE A DAY, #90 TAB 1 Refill Discontinued Medications: Cephalexin* (Keflex*) 500 Mg Capsule 500 MG ORAL TID, #21 CAP Nitrofurantoin Macrocrystal (Macrodantin) 100 Mg Capsule 100 MG ORAL TWICE A DAY for unk, CAP Tramadol Hcl* (Ultram*) 50 Mg Tablet 50 MG ORAL BEDTIME PRN for For Pain, #12 TAB 0 Refills Discharge Condition Upon Discharge: improving, stable Discharge Vital Signs Last Vital Signs Date Time Temp Pulse Resp B/P (MAP) Pulse Ox O2 Delivery O2 Flow Rate FiO2 09/25/20 11:53 92 20 99 09/25/20 09:00 Room Air 09/25/20 08:00 98.1 128/91 (103) 09/16/20 20:14 21 Discharge Disposition Patient was discharged to home Discharge Diagnoses: (1) Brucellosis (2) Diabetes mellitus (3) Bacteremia (4) Transaminitis (5) Hyponatremia (6) Sepsis Mati Archibald MD Sep 25, 2020 12:19
--- NOTE | 2020-09-25 13:29 | 48 Hour Post Anesthesia Eval ---
Post Anesthesia Evaluation Procedure: MARY Date of Evaluation: Sep 25, 2020 Time of Evaluation: 13:28 Blood Pressure Systolic: 142 0: 76 Pulse Rate: 88 Respiratory Rate: 20 Temperature (Fahrenheit): 97.6 O2 Sat by Pulse Oximetry: 99 Airway: patent Nausea: No Vomiting: No Pain Intensity: 1 Hydration Status: adequate Cardiopulmonary Status: stable Mental Status/LOC: patient returned to baseline Follow-up Care/Observations: n/a Post-Anesthesia Complications: none Follow-up care needed: N/A Asher Davis MD Sep 25, 2020 13:29
--- NOTE | 2020-09-25 14:05 | Infectious Diseases Prog Note ---
Assessment/Plan Assessment/Plan ASSESSMENT AND PLAN: 1. 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 No other significant past medical history. 3. Elevated LFTs and abdominal pain. GI is following. 4. COVID testing is negative. 5. IV fluids. 6. Case discussed with Dr. Chandra. 7. No known allergies. 8. Social history negative. 9. Family history noncontributory. 10. MAR was noted and reviewed 11. No known drug allergies. 12. Case was discussed with RN. 13. Case was discussed with Dr. Chandra. Subjective Constitutional: Denies: fever HEENT: Denies: congestion Respiratory: Denies: shortness of breath Cardiovascular: Denies: chest pain Gastrointestinal/Abdominal: Denies: nausea, vomiting, diarrhea Genitourinary: Denies: dysuria, hematuria, other Neurologic: Denies: headache Psychiatric: Denies: depression Skin: Denies: rash Musculoskeletal: Reports: other - no joint pain ; Denies: pain Allergies: Coded Allergies: No Known Allergies (Unverified , 02/17/15) Objective Last 24 Hour Vital Signs Date Time Temp Pulse Resp B/P (MAP) Pulse Ox O2 Delivery O2 Flow Rate FiO2 09/25/20 13:29 88 20 99 09/25/20 12:15 97.4 90 23 141/89 99 Nasal Cannula 3 09/25/20 12:10 88 22 130/84 100 Nasal Cannula 3 09/25/20 12:05 88 24 135/87 99 Nasal Cannula 3 09/25/20 11:55 91 24 137/87 99 Nasal Cannula 3 09/25/20 11:53 92 20 99 09/25/20 11:50 94 22 144/89 99 Nasal Cannula 3 09/25/20 11:46 97.6 98 18 147/93 98 Nasal Cannula 3 09/25/20 09:00 Room Air 09/25/20 08:00 98.1 98 20 128/91 (103) 95 09/25/20 04:00 98.0 82 16 124/83 (97) 95 09/24/20 20:30 Room Air 09/24/20 19:45 97.7 100 18 146/85 (105) 96 09/24/20 16:00 97.3 99 20 138/93 (108) 95 Height (Feet): 5 Height (Inches): 8.00 Weight (Pounds): 190 General Appearance: no acute distress HEENT: normocephalic, atraumatic, anicteric, mucous membranes moist, EOMI, supple, no JVD Respiratory/Chest: lungs clear, normal breath sounds, no respiratory distress, no accessory muscle use Cardiovascular: normal rate, regular rhythm Abdomen: normal bowel sounds, soft, non tender, no organomegaly, non distended Genitourinary: other - no mohan Extremities: no cyanosis Skin: no rash 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 Inferior splenic 2 cm and mid anterior splenic 1.6 x 0.2 cm hypodensities could represent splenic infarcts. 2. Minimal sigmoid colon wall thickening with possible minimal adjacent fat stranding is probably incidental, but could in the proper context represent minimal acute uncomplicated diverticulitis. 3. Otherwise no acute abnormality identified to account for patient presentation. TTE: <Conclusion> Technically difficulty study due to poor parasternal acoustical windows and pt's breathing. Normal left ventricular chamber size, systolic function and wall motion. Left ventricular ejection fraction estimated to be 60-65 %. No evidence of left ventricular hypertrophy. Small pericardial effusion along the free wall of RV. All other cardiac chamber sizes are within normal limits. Focal aortic valve sclerosis with adequate cusp excursion. Thickened mitral valve leaflets with normal excursion. Mitral annulus and aortic root calcification. Pulmonic valve not well visualized. Normal tricuspid valve structure. IVC at normal size with physiologic collapse. No discrete vegetations seen, however SBE may not be excluded by transthoracic 2-D echo. A color flow and spectral Doppler study was performed and revealed: No aortic regurgitation. Trace mitral regurgitation. Mitral inflow indicates normal left ventricular diastolic function. Trace tricuspid regurgitation. Tricuspid systolic velocities suggests peak right ventricular systolic pressure of 30 mmHg. No pulmonic regurgitation present. Chest x-ray - Procedure: XRAY Chest 1v Indication: Cough Technique: One view of the chest Comparison: 09/09/2020 Findings: Lungs and pleural spaces are clear. Heart size is normal. Impression: No acute process Microbiology Date/Time Source Procedure Growth Status 09/19/20 05:30 Blood Blood Culture - Preliminary NO GROWTH AFTER 72 HOURS Resulted 09/18/20 16:00 Stool Stool Culture - Final NO SALMONELLA,SHIGELLA,OR CAMPYLOBACT... Complete 09/17/20 12:35 Nasopharynx SARS-CoV-2 RdRp Gene Assay - Final Complete 09/13/20 16:40 Urine,Clean Catch Urine Culture - Final NO GROWTH AFTER 48 HOURS Complete Laboratory Tests Test 09/25/20 05:45 White Blood Count 5.3 K/UL (4.8-10.8) Red Blood Count 4.74 M/UL (4.20-5.40) Hemoglobin 14.9 G/DL (12.0-16.0) Hematocrit 44.3 % (37.0-47.0) Mean Corpuscular Volume 94 FL (80-99) Mean Corpuscular Hemoglobin 31.5 PG (27.0-31.0) H Mean Corpuscular Hemoglobin Concent 33.6 G/DL (32.0-36.0) Red Cell Distribution Width 12.1 % (11.6-14.8) Platelet Count 268 K/UL (150-450) Mean Platelet Volume 5.2 FL (6.5-10.1) L Neutrophils (%) (Auto) 45.5 % (45.0-75.0) Lymphocytes (%) (Auto) 41.0 % (20.0-45.0) Monocytes (%) (Auto) 11.4 % (1.0-10.0) H Eosinophils (%) (Auto) 0.9 % (0.0-3.0) Basophils (%) (Auto) 1.3 % (0.0-2.0) Sodium Level 139 MMOL/L (136-145) Potassium Level 3.9 MMOL/L (3.5-5.1) Chloride Level 104 MMOL/L (98-107) Carbon Dioxide Level 27 MMOL/L (21-32) Anion Gap 8 mmol/L (5-15) Blood Urea Nitrogen 8 mg/dL (7-18) Creatinine 1.0 MG/DL (0.55-1.30) Estimat Glomerular Filtration Rate 56.8 mL/min (>60) Glucose Level 130 MG/DL (74-106) H Calcium Level 9.0 MG/DL (8.5-10.1) Magnesium Level 2.2 MG/DL (1.8-2.4) Total Bilirubin 0.6 MG/DL (0.2-1.0) Aspartate Amino Transf (AST/SGOT) 154 U/L (15-37) H Alanine Aminotransferase (ALT/SGPT) 155 U/L (12-78) H Alkaline Phosphatase 104 U/L (46-116) Total Protein 8.3 G/DL (6.4-8.2) H Albumin 3.1 G/DL (3.4-5.0) L Globulin 5.2 g/dL Albumin/Globulin Ratio 0.6 (1.0-2.7) L Current Medications Medications (Trade) Dose Ordered Sig/Ghassan Route PRN Reason Start Time Stop Time Status Last Admin Dose Admin Acetaminophen (Tylenol) 650 mg Q4H PRN ORAL Mild Pain (Pain Scale 1-3) 09/13/20 18:00 10/13/20 17:59 09/20/20 05:59 Acetaminophen (Tylenol) 650 mg Q4H PRN ORAL FEVER 09/14/20 10:15 10/14/20 10:14 09/21/20 01:23 Al Hydroxide/Mg Hydroxide (Mylanta II) 30 ml Q6H PRN ORAL dyspepsia 09/13/20 18:00 10/13/20 17:59 Benzonatate (Tessalon Perles) 100 mg TIDPRN PRN ORAL For Cough 09/18/20 14:30 10/18/20 14:29 09/18/20 14:47 Dextrose (Dextrose 50%) 25 ml Q30M PRN IV Hypoglycemia 09/16/20 12:30 12/15/20 12:29 Dextrose (Dextrose 50%) 50 ml Q30M PRN IV Hypoglycemia 09/16/20 12:30 12/15/20 12:29 Diphenhydramine HCl (Benadryl) 25 mg Q6H PRN ORAL Itching/Pruritis 09/13/20 18:00 10/13/20 17:59 Doxycycline Hyclate 100 mg/ Dextrose 110 ml @ 110 mls/hr Q12HR IV 09/23/20 21:00 09/30/20 20:59 09/25/20 08:13 Enoxaparin Sodium (Lovenox) 40 mg Q24H SUBQ 09/13/20 21:00 12/12/20 20:59 09/23/20 20:56 Gentamicin Protocol (Gentamicin pharmacy to dose) 1 ea DAILY PRN MISC per rx protocol 09/23/20 13:15 10/23/20 13:14 Gentamicin Sulfate 360 mg/ Sodium Chloride 119 ml @ 119 mls/hr Q24H IVPB 09/23/20 20:00 09/30/20 19:59 09/24/20 19:54 Guaifenesin (Robitussin) 100 mg Q4H PRN ORAL For Cough 09/16/20 13:30 12/15/20 13:29 09/21/20 01:16 Hydralazine HCl (Apresoline) 25 mg Q6H PRN ORAL For High Blood Pressure 09/18/20 14:30 12/17/20 14:29 Insulin Aspart (NovoLOG) BEFORE MEALS AND HS SUBQ 09/16/20 16:30 12/15/20 16:29 09/19/20 11:41 Magnesium Hydroxide (Mom) 30 ml HSPRN PRN ORAL Constipation 09/13/20 18:00 10/13/20 17:59 Nitroglycerin (Ntg) 0.4 mg Q5M X 3 DOSES PRN SL Prn Chest Pain 09/13/20 18:00 10/13/20 17:59 Ondansetron HCl (Zofran) 4 mg Q4H PRN IVP Nausea & Vomiting 09/15/20 17:26 10/15/20 17:25 Kaur Mazariegos MD Sep 25, 2020 14:05
--- NOTE | 2020-09-25 18:45 | Operative Note - Dictated ---
DATE OF OPERATION: 09/24/2020 PROCEDURE PERFORMED: Transesophageal echocardiogram. REFERRING PHYSICIAN: Kaur Mazariegos MD. INDICATION FOR TRANSESOPHAGEAL ECHOCARDIOGRAM: Recurrent bacteremia. CONSENT: The patient gave informed consent the night before for procedure and confirmed on the day of the procedure. The risks, possible complications of procedure were fully discussed with the patient and daughter on 09/24/2020. ANESTHESIA: Per anesthesiologist. Moderate sedation was used. PROCEDURE IN DETAIL: The patient was brought to the operating room. Once adequately sedated by the anesthesiologist, multiplane transesophageal echo was advanced into the oropharynx down to the transesophageal position. Multiple views of cardiac structure was taken. Pulse wave, color-flow Doppler imaging, and continuous wave of the structures were then taken. The probe was then withdrawn. The patient tolerated the procedure well, hemodynamically stable throughout the procedure. FINDINGS: 1. Some thickening of the mitral valve, no evidence of vegetation. 2. Aortic valve without evidence of vegetation. 3. Tricuspid valve without any evidence of vegetation. 4. Pulmonic valve with no evidence of vegetation to the extent visualized. 5. No evidence of left atrial appendage thrombus. 6. No significant mobile atheroma in the proximal ascending aorta nor in the level of the arch of the proximal descending thoracic aorta. 7. Left ventricular function appeared to be intact. 8. Color Doppler imaging show no significant valvular regurgitation of the mitral, tricuspid, or the aortic valve. FINAL DIAGNOSES: 1. Normal left ventricular systolic function. 2. No evidence of mobile valvular vegetation on any of the valves to the extent visualized. Dandy Alfredo M.D. DR: Toñito JOB#: [id number] CC:
== END 2020-09-25 16:55 | disposition home or self-care (01) | DRG 868 ==
LOC: EMR 16:42 → 4E 17:07 → EDBEDREQ 18:23
PROC: B246ZZ4 Ultrasonography of Right and Left Heart, Transesophageal (ICD-10-PCS; principal; 2020-09-24)
DX: A23.9 Brucellosis, unspecified (principal); N39.0 Urinary tract infection, site not specified; E87.1 Hypo-osmolality and hyponatremia; K57.92 Diverticulitis of intestine, part unspecified, without perforation or abscess without bleeding; N12 Tubulo-interstitial nephritis, not specified as acute or chronic; K76.0 Fatty (change of) liver, not elsewhere classified; E11.9 Type 2 diabetes mellitus without complications; E87.6 Hypokalemia
CPT/HCPCS: 36415; 71045; 74177; 76700; 80053; 80170; 80202; 81003; 82553; 82962; 83036; 83605; 83735; 84100; 84439; 84443; 84484; 85025; 85610; 85651; 85730; 86665; 86705; 86709; 86803; 87040; 87045; 87086; 87324; 87340; 87496; 87798; 93005; 93306; 93312; 94003; 94150; 94640; 94664; 96365; 96367; 99285; J1815; J2250; J2405; J3490; J7030; J7620; J8499; U0002